=== PATIENT | female | born 1940 | race Caucasian/White ===

== ENCOUNTER 2016-04-15 08:46 | Day surgery (SDC) | payer BC ==
[2016-04-15] VITALS (9 sets, daily range): BP systolic 107–166; BP diastolic 48–65; PULSE 60–82; RESP 16–20; Ht 154.9 cm; Wt 66.5 kg
[~2016-04-15] VITALS: Ht 154.9 cm; Wt 66.5 kg
[~2016-04-15 08:46] MED LIST: LACT10SO53 PO; LACT20SO12 PO; PROP10TA6 PO; URSO300C3 PO
[2016-04-15] MEDS ORDERED: CIPROFLOXACIN 400MG/D5W 200 ML IVPB ONE (09:00)
[2016-04-15] MEDS ORDERED: [UNRECOGNIZED DRUG - OTHER] PO (09:27)
[2016-04-15 09:49] LABS: BASOPHILS % 0.5 % (0.0-2.0); EOSINOPHILS # 0.1 10^3/ul (0.0-0.5); EOSINOPHILS % 2.7 % (0.0-7.0); HEMATOCRIT 34.5 % (37.0-47.0); HEMOGLOBIN 11.8 g/dl (12.0-16.0); LYMPHOCYTES # 1.3 10^3/ul (0.8-2.9); LYMPHOCYTES % 40.2 % (15.0-51.0); MEAN CORPUSCULAR HGB CONC 34.2 g/dl (32.0-37.0); MEAN CORPUSCULAR VOLUME 99.3 fl (82.0-101.0); MEAN PLATELET VOLUME 8.2 fl (7.4-10.4); MONOCYTE # 0.3 10^3/ul (0.3-0.9); MONOCYTES % 10.2 % (0.0-11.0); NEUTROPHIL # 1.5 10^3/ul (1.6-7.5); NEUTROPHILS % 46.4 % (39.0-77.0); PLATELET COUNT 84 10^3/UL (140-440); RED BLOOD COUNT 3.47 10^6/ul (4.20-5.40); RED CELL DISTRIBUTION WIDTH 15.5 % (11.5-14.5); UNCORRECTED WBC 3.2 10^3/ul (4.8-10.8); WHITE BLOOD COUNT 3.2 10^3/ul (4.8-10.8)
[2016-04-15 09:52] LABS: CONDITION 1; LH ANALYZER COMMENTS 1
[2016-04-15 09:54] LABS: INR 1.65; PROTIME 19.6 Sec (12.2-14.2); PT RATIO 1.5
[2016-04-15 10:01] LABS: CALCIUM 8.2 mg/dl (8.4-10.2); CREATININE 0.52 mg/dl (0.44-1.00); POTASSIUM 4.7 mmol/L (3.5-5.1)
--- NOTE | 2016-04-15 10:05 | RADRPT ---
PROCEDURE: Chest Radiograph. CLINICAL INDICATION: Preop. Cirrhosis. TECHNIQUE: Single frontal chest radiograph. COMPARISON: Chest radiograph 10/24/2015 FINDINGS: Heart size is within normal limits. Atherosclerotic calcifications are present. No infiltrate or effusion is seen. The bones are intact. IMPRESSION: 1. No evidence of acute cardiopulmonary disease. 2. Atherosclerotic vascular disease RPTAT: KK .Iglesia Zee MD, MD Date Time Electronically viewed and signed by .Iglesia Zee MD, on 04/15/2016 10:04 .B/
[2016-04-15 10:22] LABS: PARTIAL THROMBOPLASTIN TIME 39.3 Sec (25.0-35.0)
[2016-04-15] MEDS ORDERED: IOHEXOL 300MG/ML 30 ML BTL ONE (11:30)
[2016-04-15] MEDS ORDERED: SUCCINYLCHOLINE CHLORIDE 100 MG/5 ML SYG IV ONE (11:51)
[2016-04-15] MEDS ORDERED: PROPOFOL 20 ML ONE (11:51)
[2016-04-15] MEDS ORDERED: LIDOCAINE 2% (SDV) 5 ML INJ ONE (11:51)
[2016-04-15] MEDS ORDERED: ONDANSETRON 4 MG INJ ONE (11:58)
[2016-04-15] MEDS ORDERED: DEXAMETHASONE 4 MG/ML 1 ML INJ ONE (11:59)
[2016-04-15] MEDS ORDERED: EPHEDrine SULFATE 50 MG/5 ML SYG ONE (12:03)
[2016-04-15] MEDS ORDERED: INDOMETHACIN 50 MG SUPP PR ONE ×2 (12:22→12:30)
[2016-04-15] MEDS ORDERED: PROCHLORPERAZINE 10 MG INJ IV PRN (13:00)
[2016-04-15] MEDS ORDERED: hydrALAzine 20 MG INJ IV PRN (13:00)
[2016-04-15] MEDS ORDERED: LABETALOL HCL 20MG INJ IV PRN (13:00)
[2016-04-15] MEDS ORDERED: ONDANSETRON 4 MG INJ IV PRN (13:00)
[2016-04-15] MEDS ORDERED: HYDROmorphONE (0.2 MG/ML) 10ML SYG IV PRN (13:00)
--- NOTE | 2016-04-15 14:31 | RADRPT ---
PROCEDURE: Intraoperative imaging for ERCP with fluoroscopy. CLINICAL INDICATION: Right upper quadrant pain. Intraoperative. TECHNIQUE: 2 images of the right upper quadrant of the abdomen were obtained in the operating room with an image intensifier. No radiologist was in attendance. 0.1 minutes of fluoroscopy time was used. COMPARISON: 10/26/2015. FINDINGS: Images demonstrate the endoscope in position and contrast injected into the common bile duct. The c ystic duct is also opacified. The common bile duct is normal in diameter. The stent is no longer p resent. IMPRESSION: 1. ERCP as described above. RPTAT: QQ .Kris Velez MD, MD Date Time Electronically viewed and signed by .Kris Velez MD, MD on 04/15/2016 14:31 .R/
--- NOTE | 2016-04-15 14:52 | RADRPT ---
Vent Rate: 60 bpm RR Interval: 0 msec WA Interval: 192 msec QRS Duration: 84 msec QT Interval: 498 msec QTC Interval: 498 msec P-R-T [place]: 42 - 38 - 40 degrees Normal sinus rhyth Normal ECG Electronically Signed By: Bobby Zavala [phone]
--- NOTE | 2016-04-16 06:46 | GILP ---
DATE OF PROCEDURE: PROCEDURE: ERCP, removal of stent stone and also EGD with banding. INDICATION: A 75-year-old female undergoing this procedure for the removal of biliary stent and do cholangiogram, make sure no stone is left behind. She is also undergoing a banding procedure for es ophageal varicose vein. The patient has cirrhosis of liver with mild coagulopathy and thrombocytope ariel. INFORMED CONSENT: The risk of the procedure, related and unrelated complications, anesthetic risks, alternatives discussed. Informed consent was obtained. DESCRIPTION OF PROCEDURE: The patient was brought to the OR room #3, intubated by Dr. Gibson, placed in a prone position, was given Cipro 400 mg IV piggyback. ERCP scope passed with much ease into eso phagus after optimal sedation. Grade III to IV varicose vein identified. Scope was advanced furthe r down into stomach and duodenum. Ampulla appeared much larger than the usual. The stent was ident ified, successfully removed with the help of a snare through the biopsy channel. Bile duct was rhea ctively cannulated. The distal part of the bile duct was not well visualized. Small stone came out . The bile duct was swept multiple times with a 12 mm balloon. The 12 mm balloon would exit withou t any resistance. The drainage was excellent. No sphincterotomy was done because of the coagulopat hy and thrombocytopenia, and since the drainage was excellent and the 12 mm balloon would come out e asily, decided not to deploy a stent. Scope was then removed with excellent patient tolerance. At this point, we passed EGD scope with a 7-shooter attached to the tip of the scope. The columns of v aricose veins were successfully banded, total 5 bands deployed. The patient tolerated the procedure very well. No bleeding was seen. Scope was removed with good patient tolerance. IMPRESSION: 1. Removal of stent. 2. Removal of stone. 3. Excellent drainage established. 4. Fluoroscopy time was 2 seconds. 5. Esophageal banding done. Five bands were successfully deployed. No vein was left behind. PLAN: Follow her as an outpatient. If patient is stable after extubation, she can be started on a regular diet. Dictated By: ERICA AGUILAR/BRITTANY Conf#: [id number] DID#: [id number] CC: ;*EndCC*
== END 2016-04-15 14:55 | disposition home or self-care (01) ==
LOC: SDS 08:46
PROVIDERS: ATTEND Internal Medicine Gastroenterology
DX: K80.80 Other cholelithiasis without obstruction (principal); I10 Essential (primary) hypertension
CPT/HCPCS: 43264; 43275; 71010; 74330; 80048; 85025; 85610; 85730; 93005; J0360; J0744; J1100; J2405; Q9967; Z7512; Z7610; J0330

== ENCOUNTER 2017-11-05 12:20 | Inpatient (IN) | END 2017-11-07 10:59 | disposition home or self-care (01) | DRG 441 ==

== ENCOUNTER 2018-04-01 09:39 | Inpatient (IN) | END 2018-04-04 13:35 | disposition home or self-care (01) | DRG 641 ==

== ENCOUNTER 2018-05-27 17:33 | Inpatient (IN) | payer BC ==
[~2018-05-27] VITALS: Ht 152.4 cm; Wt 74.7 kg
[~2018-05-27 17:33] MED LIST changes: +ATR1OO35 BOTH EYES; +COMBIG5 RIGHT EYE; +FURO40TA4 PO; +HYDR-4011 PO; +IBUP-1561 PO; +LACT10SO5 PO; -LACT10SO53 PO; -LACT20SO12 PO; +PRED5DRO20 RIGHT EYE; +RIFA550T4 PO; -URSO300C3 PO
[2018-05-27] MEDS ORDERED: ONDANSETRON 4 MG INJ IV PRN ×2 (21:00→23:30)
[2018-05-27] MEDS ORDERED: ACETAMINOPHEN 325 MG TAB PO PRN ×2 (21:00→23:30)
[2018-05-27] MEDS ORDERED: hydrALAzine 20 MG INJ IV ONE (21:30)
[2018-05-27 22:12] VITALS: PULSE 62
[2018-05-27 22:20] VITALS: BP 146/65; PULSE 66; RESP 20
[2018-05-27 22:25] VITALS: Ht 152.4 cm; Wt 74.7 kg
[2018-05-27] MEDS ORDERED: SOD CHLORIDE 0.9% 1,000 ML IV SCH (23:16)
[2018-05-27] MEDS ORDERED: NACL 0.9% 3 ML SYG IV SCH (23:30)
[2018-05-27] MEDS ORDERED: DOCUSATE SODIUM 100 MG CAP PO PRN (23:30)
[2018-05-27] MEDS ORDERED: BISACODYL (EC) 5 MG TAB PO PRN (23:30)
[2018-05-28] VITALS (11 sets, daily range): BP systolic 126–172; BP diastolic 64–77; PULSE 52–78; RESP 18–68
--- NOTE | 2018-05-28 00:25 | ERD ---
ER Documentation Chief Complaint Chief Complaint ALTERED LOC ; DIZZINESS ; GENRALIZED WEAKNESS HPI 77-year-old female with a history of cirrhosis brought in by her daughter for increased confusion that started today. Normally she is not confused at baseline. However when her ammonia levels go up, her daughter states that she becomes confused. She has not been ill lately. She has had no complaints of headache, chest pain, shortness of breath, abdominal pain, diarrhea, vomiting, fever or chills. Patient currently is able to answer some questions and denies any symptoms besides being confused. ROS All systems reviewed and are negative except as per history of present illness. Medications Home Meds Active Scripts Ibuprofen* (Motrin*) 400 Mg Tab, 400 MG PO Q8, #30 TAB Prov:JACLYN LEA DO 05/23/18 Reported Medications Brimonidine/Timolol* (Combigan*) 5 Ml Drops, 1 DROP RIGHT EYE BID, BOTTLE 04/03/18 Prednisolone Acetate* (Pred Forte*) 5 Ml Susp, 1 DROP RIGHT EYE QID, EA 04/03/18 Atropine Sulfate* (Atropine Sulfate*) 3.5 Gm Oint, 1 APPLIC BOTH EYES DAILY, #1 TUB 04/01/18 Rifaximin* (Xifaxan*) 550 Mg Tablet, 550 MG PO BID, TAB 04/01/18 Lactulose* (Lactulose*) 10 Gm/15 Ml Solution, 30 GM PO Q6 PRN for CONSTIPATION, ML 04/01/18 Propranolol Hcl* (Propranolol Hcl*) 10 Mg Tablet, 10 MG PO BID, TAB 04/01/18 Discontinued Reported Medications Furosemide* (Furosemide*) 40 Mg Tablet, 40 MG PO DAILY, TAB 04/01/18 Discontinued Scripts Hydrocodone/Acetaminophen ([place] 5-325 Tablet) 1 Each Tablet, 1 TAB PO Q6H PRN for PAIN, #14 TAB Prov:JACLYN LEA DO 05/23/18 Allergies Allergies: Coded Allergies: Penicillins (Verified Allergy, Severe, TONGUE TURNED BLACK, SORETHROAT, 05/27/18) PMhx/Soc History of Surgery: No Anesthesia Reaction: No Hx Neurological Disorder: Yes (confusion) Hx Respiratory Disorders: No Hx Cardiac Disorders: No Hx Psychiatric Problems: Yes (depression) Hx Alcohol Use: No Hx Substance Use: No Hx Tobacco Use: No Smoking Status: Never smoker FmHx Unable to obtain Physical Exam Vitals Vital Signs Date Temp Pulse Resp B/P (MAP) Pulse Ox O2 O2 Flow FiO2 Time Delivery Rate 05/27/18 98.1 61 20 213/79 100 Room Air 20:30 (123) 05/27/18 98.1 59 20 229/86 100 Room Air 18:30 (133) 05/27/18 98.1 58 19 228/93 100 17:45 (138) Physical Exam Const: No acute distress. Nontoxic. Appears fatigued Head: Atraumatic Eyes: Normal Conjunctiva, PERRLA, EOMI ENT: Normal External Ears, Nose and Mouth. Neck: Full range of motion. No meningismus. Resp: Clear to auscultation bilaterally Cardio: Regular rate and rhythm, no murmurs Abd: Soft, non tender, non distended. Normal bowel sounds Skin: No petechiae or rashes Back: No midline or flank tenderness Ext: No cyanosis, or edema Neur: Awake and alert, oriented to self but not oriented to place, date, year. No facial asymmetry. No pronator drift. Strength and sensations intact in all 4 extremities but has some difficulty following commands. Psych: Normal Mood and Affect Result Diagram: 05/27/18 1834 05/27/18 183 Results 24 hrs Laboratory Tests Test 05/27/18 18:34 05/27/18 19:31 White Blood Count 14.6 10^3/ul Red Blood Count 3.68 10^6/ul Hemoglobin 12.4 g/dl Hematocrit 36.9 % Mean Corpuscular Volume 100.3 fl Mean Corpuscular Hemoglobin 33.7 pg Mean Corpuscular Hemoglobin Concent 33.6 g/dl Red Cell Distribution Width 14.8 % Platelet Count 118 10^3/UL Mean Platelet Volume 10.9 fl Immature Granulocytes % 1.100 % Neutrophils % 82.1 % Lymphocytes % 9.1 % Monocytes % 6.9 % Eosinophils % 0.5 % Basophils % 0.3 % Nucleated Red Blood Cells % 0.0 /100WBC Immature Granulocytes # 0.160 10^3/ul Neutrophils # 12.0 10^3/ul Lymphocytes # 1.3 10^3/ul Monocytes # 1.0 10^3/ul Eosinophils # 0.1 10^3/ul Basophils # 0.1 10^3/ul Nucleated Red Blood Cells # 0.0 10^3/ul Sodium Level 128 mmol/L Potassium Level 5.2 mmol/L Chloride Level 101 mmol/L Carbon Dioxide Level 20 mmol/L Anion Gap 7 Blood Urea Nitrogen 23 mg/dl Creatinine 1.03 mg/dl Est Glomerular Filtrat Rate mL/min mL/min Glucose Level 168 mg/dl Calcium Level 8.0 mg/dl Total Bilirubin 2.2 mg/dl Direct Bilirubin 0.00 mg/dl Indirect Bilirubin 2.2 mg/dl Aspartate Amino Transf (AST/SGOT) 89 IU/L Alanine Aminotransferase (ALT/SGPT) 79 IU/L Alkaline Phosphatase 174 IU/L Ammonia 63 umol/l Troponin I 0.020 ng/ml Total Protein 6.8 g/dl Albumin 2.3 g/dl Globulin 4.50 g/dl Albumin/Globulin Ratio 0.51 Urine Color YELLOW Urine Clarity SLIGHTLY CLOUDY Urine pH 6.0 Urine Specific [place] 1.014 Urine Ketones NEGATIVE mg/dL Urine Nitrite NEGATIVE mg/dL Urine Bilirubin NEGATIVE mg/dL Urine Urobilinogen NEGATIVE mg/dL Urine Leukocyte Esterase NEGATIVE Lisette/ul Urine Microscopic RBC 21 /HPF Urine Microscopic WBC 6 /HPF Urine Squamous Epithelial Cells MODERATE /HPF Urine Bacteria FEW /HPF Urine Hemoglobin 3+ mg/dL Urine Glucose NEGATIVE mg/dL Urine Total Protein 3+ mg/dl Urine Opiates Screen NEGATIVE Urine Barbiturates NEGATIVE Urine Amphetamines Screen NEGATIVE Urine Benzodiazepines Screen NEGATIVE Urine Cocaine Screen NEGATIVE Urine Cannabinoids NEGATIVE Procedures/MDM EMERGENT LABS AND DIAGNOSTIC STUDIES: Lab Results above were reviewed and interpreted by me. CBC: No anemia. Thrombocytopenia. Leukocytosis of unclear etiology. CMP: Mild hyponatremia with mild hyperkalemia. Elevated BUN and creatinine, co nsistent with AK I. Transaminitis with elevated bilirubin, consistent with liver disease. Troponin within normal limits, not indicative of cardiac ischemia UA: Microscopic hematuria noted. No evidence of infection Urine drug screen negative Ammonia elevated 12-lead EKG was interpreted by Randee Hood MD: Normal Sinus Rhythm with ventricular rate of 59 beats per minute Normal axis Normal intervals Abnormal R wave progression No acute ST or T wave changes suggestive of acute ischemia or STEMI. Radiology Results as interpreted by Radiology below were reviewed by Yelitza Hood MD: Chest x-ray shows no acute abnormalities CT brain pending Initial Nursing notes reviewed. Previous Medical Records requested via the Electronic Health Record. EMERGENCY DEPARTMENT COURSE / MEDICAL DECISION MAKING: patient is presenting with altered mental status of unclear etiology. There is no evidence of infection on workup.She is afebrile and his vitals only notable for hypertension.Labs showed evidence of acute renal insufficiency with some electrolyte abnormalities. She does have leukocytosis but no source of infection at this time. Her ammonia level was elevated, which may be the reason why she is confused. Patient is currently not stable for discharge and will require admission for observation and further workup and management. Critical Care Time: 40 minutes Treatments/Evaluations: Close monitoring and treatment of unstable vital signs, cardiorespiratory, and neurologic status, while maintaining tight balance of fluid, respiratory, and cardiac interventions. This time includes discussing the case with the patient and the patients family. This time does not include all procedures stated elsewhere in this record. This time also includes reviewing old records, labs and radiological studies. This time includes examining and re- examining the patient. Additionally, this time also includes arranging care with admitting and consulting physicians. Accepting Care Team: Current data and ongoing care discussed. Time: Time of admission Primary Provider: Dr. Cortez Outstanding Data: CT brain Departure Diagnosis: Primary Impression: Altered mental status Altered mental status type: disorientation Qualified Codes: R41.0 - Disorientation, unspecified Additional Impressions: Hyperammonemia Hyponatremia Acute renal insufficiency Condition: Serious OZZY HOOD MD May 28, 2018 00:25
[2018-05-28] MEDS: LACTULOSE 30ML CUP PO SCH ×6 (00:47→20:48)
[2018-05-28] MEDS: PANTOPRAZOLE 40 MG INJ IV SCH (05:58)
[2018-05-28] MEDS ORDERED: LEVOFLOXACIN 500 MG TAB PO SCH (06:00)
[2018-05-28] MEDS: RIFAXIMIN 550 MG TAB PO SCH ×2 (09:00→20:48)
[2018-05-28] MEDS: PROPRANOLOL 10 MG TAB PO SCH ×2 (09:03→20:48)
[2018-05-28] MEDS: PREDNISOLONE ACET 1% 5 ML OPH RIGHT EYE SCH ×4 (09:05→20:49)
[2018-05-28] MEDS: BRIMONIDINE 0.2%-TIMOLOL 0.5% 5ML OPH RIGHT EYE SCH ×2 (09:05→20:49)
[2018-05-28] MEDS ORDERED: SODIUM POLYSTYRENE 15 GM KIT (POWDER + SORBITOL) PO ONE (09:30)
--- NOTE | 2018-05-28 12:43 | HP ---
YOKO VEGA 05/28/18 1243: Date/Time of Note Date/Time of Note DATE: 05/28/18 TIME: 12:41 Assessment/Plan VTE Prophylaxis Risk score (from [facility] [place])>0 risk: 6 SCD applied (from [facility] [place]): Yes Pharmacological prophylaxis: NA/contraindicated Pharm contraindication: thrombocytopenia Lines/Catheters IV Catheter Type (from [facility] Peripheral IV Assessment/Plan Hospital Course 1. SIRS. UA is negative, chest xray is negative. 2. TRISTON, creatinine in 03/2018 was normal, now elevated 1.15, hyperkalemia 3. Hyponatremia. 4. Metabolic encephalopathy with AMS. Elevated ammonia. 5. Abnormal liver function test. 6. Liver cirrhosis with thrombocytopenia. 7. Obesity 8. History of hepatic encephalopathy with elevated ammonia. Assessment/Plan -DVT prophylaxis SCD pt has thrombocytopenia -Gi prophylaxis Protonix -c/w iV fluids -telemetry service -c/w lactulose q4, rifaximin. - GI consultation will be requested. -recheck Potassium. -Kayaxalete was given today Result Diagram: 05/28/18 0640 05/28/18 0640 Results 24hrs Laboratory Tests Test 05/27/18 18:34 05/27/18 19:31 05/28/18 06:40 White Blood Count 14.6 #H 12.7 H Red Blood Count 3.68 #L 3.59 L Hemoglobin 12.4 # 11.9 L Hematocrit 36.9 #L 35.5 L Mean Corpuscular Volume 100.3 98.9 Mean Corpuscular Hemoglobin 33.7 H 33.1 H Mean Corpuscular 33.6 33.5 Hemoglobin Concent Red Cell Distribution Width 14.8 H 14.9 H Platelet Count 118 #L 111 L Mean Platelet Volume 10.9 H 11.3 H Immature Granulocytes % 1.100 H 0.900 H Neutrophils % 82.1 H 79.7 H Lymphocytes % 9.1 L 10.4 L Monocytes % 6.9 8.2 Eosinophils % 0.5 0.6 Basophils % 0.3 0.2 Nucleated Red Blood Cells % 0.0 0.2 H Immature Granulocytes # 0.160 H 0.110 H Neutrophils # 12.0 H 10.1 H Lymphocytes # 1.3 1.3 Monocytes # 1.0 H 1.0 H Eosinophils # 0.1 0.1 Basophils # 0.1 0.0 Nucleated Red Blood Cells # 0.0 0.0 Sodium Level 128 L 129 L Potassium Level 5.2 H 5.5 H Chloride Level 101 103 Carbon Dioxide Level 20 L 21 Anion Gap 7 5 Blood Urea Nitrogen 23 H 27 H Creatinine 1.03 H 1.15 H Est Glomerular Filtrat Rate mL/min Glucose Level 168 191 Calcium Level 8.0 L 8.1 L Total Bilirubin 2.2 H 2.2 H Direct Bilirubin 0.00 0.00 Indirect Bilirubin 2.2 H 2.2 H Aspartate Amino 89 H 78 H Transf (AST/SGOT) Alanine 79 H 77 H Aminotransferase (ALT/SGPT) Alkaline Phosphatase 174 H 150 H Ammonia 63 H 74 H Troponin I 0.020 Total Protein 6.8 5.6 #L Albumin 2.3 L 2.0 L Globulin 4.50 H 3.60 H Albumin/Globulin Ratio 0.51 0.55 Urine Color YELLOW Urine Clarity SLIGHTLY CLOUDY A Urine pH 6.0 Urine Specific [place] 1.014 Urine Ketones NEGATIVE Urine Nitrite NEGATIVE Urine Bilirubin NEGATIVE Urine Urobilinogen NEGATIVE Urine Leukocyte Esterase NEGATIVE Urine Microscopic RBC 21 H Urine Microscopic WBC 6 H Urine Squamous MODERATE Epithelial Cells Urine Bacteria FEW A Urine Hemoglobin 3+ H Urine Glucose NEGATIVE Urine Total Protein 3+ H Urine Opiates Screen NEGATIVE Urine Barbiturates NEGATIVE Urine Amphetamines Screen NEGATIVE Urine Benzodiazepines Screen NEGATIVE Urine Cocaine Screen NEGATIVE Urine Cannabinoids NEGATIVE Hemoglobin A1c 5.4 HPI/ROS Admit Date/Time Admit Date/Time May 27, 2018 at 20:37 Hx of Present Illness This is a 77-year-old woman with a past medical history of cirrhosis, followed by Dr Chahal as an outpatient, history of biliary stent, angiogram, history of esophageal varices status post banding by Dr. Hammer who presented to the emergency department after being confused at home. Most information is given by pt son, who is on bedside, per ER record pt had increased confusion day prior admission. Normally she is not confused at baseline. However when her ammonia levels go up, her daughter states that she becomes confused. Similar situation happened February 2018 and pt was hospitalized [facility]. Daughter reported that patient has not been ill lately. She has had no complaints of headache, chest pain, shortness of breath, abdominal pain, diarrhea, vomiting, fever or chills. ROS Constitutional: no complaints, improved PMH/Family/Social Past Medical History Medical History: other (liver cirrhosis) Medications Current Medications Brimonidine/ Timolol (Combigan Oph) 1 drop BID RIGHT EYE Last administered on 05/28/18at 09:05; Admin Dose 1 DROP; Start 05/28/18 at 09:00 Prednisolone Acetate (Pred-Forte 1%) 1 drop QID RIGHT EYE Last administered on 05/28/18at 09:05; Admin Dose 1 DROP; Start 05/28/18 at 09:00 Propranolol HCl (Inderal) 10 mg BID PO Last administered on 05/28/18at 09:03; Admin Dose 10 MG; Start 05/28/18 at 09:00 Rifaximin (Xifaxan) 550 mg BID PO ; Start 05/28/18 at 09:00 Sodium Chloride 1,000 ml @ 30 mls/hr Q24H IV Last administered on 05/28/18at 00:47; Admin Dose 30 MLS/HR; Start 05/27/18 at 23:16 IV Flush (NS 3 ml) 3 ml PER PROTOCOL IV ; Start 05/27/18 at 23:30 Ondansetron HCl (Zofran Inj) 4 mg Q6H PRN IV NAUSEA/VOMITING; Start 05/27/18 at 23:30 Acetaminophen (Tylenol Tab) 650 mg Q6H PRN PO .PAIN 1-3 OR TEMP; Start 05/27/18 at 23:30 Docusate Sodium (Colace) 100 mg Q12H PRN PO .CONSTIPATION; Start 05/27/18 at 23:30 Bisacodyl (Dulcolax) 5 mg DAILY PRN PO .CONSTIPATION; Start 05/27/18 at 23:30 Pantoprazole (Protonix Iv) 40 mg DAILY@06 IV Last administered on 05/28/18at 05:58; Admin Dose 40 MG; Start 05/28/18 at 06:00 Lactulose (Enulose) 20 gm Q4 PO Last administered on 05/28/18at 09:02; Admin Dose 20 GM; Start 05/28/18 at 01:00 Levofloxacin (Levaquin) 250 mg DAILY@06 PO ; Start 05/29/18 at 06:00 Coded Allergies: Penicillins (Verified Allergy, Severe, TONGUE TURNED BLACK, SORETHROAT, 05/27/18) Past Surgical History Past Surgical Hx: no surgical history (stent), angioplasty, other Family History Significant Family History: no pertinent family hx Social History Alcohol Use: none Smoking Status: Never smoker Drug Use: none Exam/Review of Systems Vital Signs Vitals Vital Signs Date Temp Pulse Resp B/P (MAP) Pulse Ox O2 O2 Flow FiO2 Time Delivery Rate 05/28/18 52 12:14 05/28/18 98.2 18 150/68 98 11:46 (95) 05/28/18 Room Air 00:30 Exam Constitutional: alert, oriented Respiratory: clear to auscultation Cardiovascular: regular rate and rhythm Gastrointestinal: soft GABRIELA ESPINO MD 05/28/18 1728: Assessment/Plan Assessment/Plan Assessment/Plan seen and examined with [employer] Hepatic encephalopathy> lactulose/rifaxzimin hypobnatremia with volume overload> fludi restriction/iv lasix hyperkalemia> kayexlate Result Diagram: 05/28/18 0640 05/28/18 0640 PMH/Family/Social Past Medical History Coded Allergies: Penicillins (Verified Allergy, Severe, TONGUE TURNED BLACK, SORETHROAT, 05/27/18) YOKO VEGA May 28, 2018 12:43 GABRIELA ESPINO MD May 28, 2018 17:28
[2018-05-28] MEDS ORDERED: FUROSEMIDE 40 MG INJ IV ONE (17:30)
[2018-05-29] VITALS (12 sets, daily range): BP systolic 142–190; BP diastolic 65–79; PULSE 57–69; RESP 16–20
[2018-05-29] MEDS: LACTULOSE 30ML CUP PO SCH ×6 (01:34→20:15)
[2018-05-29] MEDS: LEVOFLOXACIN 250 MG TAB PO SCH (05:44)
[2018-05-29] MEDS: PANTOPRAZOLE 40 MG INJ IV SCH (05:44)
[2018-05-29] MEDS: BRIMONIDINE 0.2%-TIMOLOL 0.5% 5ML OPH RIGHT EYE SCH ×2 (08:54→20:15)
[2018-05-29] MEDS: PREDNISOLONE ACET 1% 5 ML OPH RIGHT EYE SCH ×4 (08:54→20:15)
[2018-05-29] MEDS: FUROSEMIDE 40 MG INJ IV SCH (08:54)
[2018-05-29] MEDS: PROPRANOLOL 10 MG TAB PO SCH ×2 (08:54→20:16)
[2018-05-29] MEDS: RIFAXIMIN 550 MG TAB PO SCH ×2 (08:54→20:16)
--- NOTE | 2018-05-29 13:11 | PN ---
Date/Time of Note Date/Time of Note DATE: 05/29/18 TIME: 12:53 Assessment/Plan VTE Prophylaxis Risk score (from [facility])>0 risk: 6 SCD applied (from [facility]): Yes Pharmacological prophylaxis: NA/contraindicated Pharm contraindication: thrombocytopenia Lines/Catheters IV [facility] Saline Lock Assessment/Plan Hospital Course 1. SIRS. UA is negative, chest xray is negative. 2. TRISTON, creatinine in 03/2018 was normal, now elevated 1.15, hyperkalemia. Creatinine is trending up 3. Hyponatremia, better. 4. Metabolic encephalopathy with AMS. Elevated ammonia. Resolved 5. Abnormal liver function test. 6. Liver cirrhosis with thrombocytopenia. 7. Obesity 8. History of hepatic encephalopathy with elevated ammonia. 9. Anemia Assessment/Plan -decrease lasix -DVT prophylaxis SCD pt has thrombocytopenia -Gi prophylaxis Protonix -telemetry service -c/w lactulose q4, rifaximin. - GI consultation will be requested. -ambulating Result Diagram: 05/29/18 0605/29/18 0605 Results 24hrs Laboratory Tests Test 05/28/18 19:50 05/29/18 06:05 Urine Osmolality 270 Urine Random Sodium 90 White Blood Count 9.0 # Red Blood Count 3.10 L Hemoglobin 10.5 L Hematocrit 30.7 L Mean Corpuscular Volume 99.0 Mean Corpuscular Hemoglobin 33.9 H Mean Corpuscular Hemoglobin Concent 34.2 Red Cell Distribution Width 15.0 H Platelet Count 91 L Mean Platelet Volume 11.5 H Immature Granulocytes % 0.800 H Neutrophils % 80.4 H Lymphocytes % 10.4 L Monocytes % 8.1 Eosinophils % 0.2 Basophils % 0.1 Nucleated Red Blood Cells % 0.0 Immature Granulocytes # 0.070 H Neutrophils # 7.3 Lymphocytes # 0.9 Monocytes # 0.7 Eosinophils # 0.0 Basophils # 0.0 Nucleated Red Blood Cells # 0.0 Sodium Level 132 L Potassium Level 4.5 Chloride Level 107 Carbon Dioxide Level 20 L Anion Gap 5 Blood Urea Nitrogen 32 H Creatinine 1.20 H Est Glomerular Filtrat Rate mL/min Glucose Level 228 H Calcium Level 7.9 L Subjective 24 Hr Interval Summary Musculoskeletal: swelling (lower extremities) Exam/Review of Systems Exam Vitals Vital Signs Date Temp Pulse Resp B/P (MAP) Pulse Ox O2 O2 Flow FiO2 Time Delivery Rate 2/16/19 98.9 62 16 142/65 100 11:36 (90) 05/28/18 Room Air 00:30 Intake and Output 05/28/18 05/28/18 05/29/18 1515:00 23:00 07:00 IntakeIntake Total 850 ml 350 ml BalanceBalance 850 ml 350 ml Constitutional: alert, oriented Respiratory: clear to auscultation Cardiovascular: regular rate and rhythm Gastrointestinal: soft Results Results 24hrs Laboratory Tests Test 05/28/18 19:50 05/29/18 06:05 Urine Osmolality 270 Urine Random Sodium 90 White Blood Count 9.0 # Red Blood Count 3.10 L Hemoglobin 10.5 L Hematocrit 30.7 L Mean Corpuscular Volume 99.0 Mean Corpuscular Hemoglobin 33.9 H Mean Corpuscular Hemoglobin Concent 34.2 Red Cell Distribution Width 15.0 H Platelet Count 91 L Mean Platelet Volume 11.5 H Immature Granulocytes % 0.800 H Neutrophils % 80.4 H Lymphocytes % 10.4 L Monocytes % 8.1 Eosinophils % 0.2 Basophils % 0.1 Nucleated Red Blood Cells % 0.0 Immature Granulocytes # 0.070 H Neutrophils # 7.3 Lymphocytes # 0.9 Monocytes # 0.7 Eosinophils # 0.0 Basophils # 0.0 Nucleated Red Blood Cells # 0.0 Sodium Level 132 L Potassium Level 4.5 Chloride Level 107 Carbon Dioxide Level 20 L Anion Gap 5 Blood Urea Nitrogen 32 H Creatinine 1.20 H Est Glomerular Filtrat Rate mL/min Glucose Level 228 H Calcium Level 7.9 L Medications Medication Current Medications Brimonidine/ Timolol (Combigan Oph) 1 drop BID RIGHT EYE Last administered on 05/29/18 08:54; Admin Dose 1 DROP; Start 05/28/18 at 09:00 Prednisolone Acetate (Pred-Forte 1%) 1 drop QID RIGHT EYE Last administered on 05/29/18 12:33; Admin Dose 1 DROP; Start 05/28/18 at 09:00 Propranolol HCl (Inderal) 10 mg BID PO Last administered on 05/29/18 08:54; Admin Dose 10 MG; Start 05/28/18 at 09:00 Rifaximin (Xifaxan) 550 mg BID PO Last administered on 05/28/18at 20:48; Admin Dose 550 MG; Start 05/28/18 at 09:00 IV Flush (NS 3 ml) 3 ml PER PROTOCOL IV ; Start 05/27/18 at 23:30 Ondansetron HCl (Zofran Inj) 4 mg Q6H PRN IV NAUSEA/VOMITING; Start 05/27/18 at 23:30 Acetaminophen (Tylenol Tab) 650 mg Q6H PRN PO .PAIN 1-3 OR TEMP; Start 05/27/18 at 23:30 Docusate Sodium (Colace) 100 mg Q12H PRN PO .CONSTIPATION; Start 05/27/18 at 23:30 Bisacodyl (Dulcolax) 5 mg DAILY PRN PO .CONSTIPATION; Start 05/27/18 at 23:30 Pantoprazole (Protonix Iv) 40 mg DAILY@06 IV Last administered on 05/29/18at 05:44; Admin Dose 40 MG; Start 05/28/18 at 06:00 Lactulose (Enulose) 20 gm Q4 PO Last administered on 05/29/18at 12:33; Admin Dose 20 GM; Start 05/28/18 at 01:00 Levofloxacin (Levaquin) 250 mg DAILY@06 PO Last administered on 05/29/18at 05:44; Admin Dose 250 MG; Start 05/29/18 at 06:00 Furosemide (Lasix) 40 mg DAILY IV Last administered on 05/29/18at 08:54; Admin Dose 40 MG; Start 05/29/18 at 09:00 YOKO VEGA May 29, 2018 13:03
[2018-05-30] VITALS (13 sets, daily range): BP systolic 119–187; BP diastolic 57–82; PULSE 52–71; RESP 16–18
[2018-05-30] MEDS: LACTULOSE 30ML CUP PO SCH ×6 (01:00→21:08)
[2018-05-30] MEDS: PANTOPRAZOLE (EC) 40 MG TAB PO SCH (05:46)
[2018-05-30] MEDS: LEVOFLOXACIN 250 MG TAB PO SCH (05:46)
[2018-05-30] MEDS: SPIRONOLACTONE 50 MG TAB PO SCH (05:46)
[2018-05-30] MEDS: FUROSEMIDE 40 MG INJ IV SCH ×2 (08:20→18:35)
[2018-05-30] MEDS: RIFAXIMIN 550 MG TAB PO SCH ×2 (08:20→21:08)
[2018-05-30] MEDS: PROPRANOLOL 10 MG TAB PO SCH ×2 (08:20→21:08)
[2018-05-30] MEDS: hydrALAzine 20 MG INJ IV PRN (08:21)
[2018-05-30] MEDS: BRIMONIDINE 0.2%-TIMOLOL 0.5% 5ML OPH RIGHT EYE SCH ×2 (08:21→21:08)
[2018-05-30] MEDS: PREDNISOLONE ACET 1% 5 ML OPH RIGHT EYE SCH ×4 (08:21→21:09)
--- NOTE | 2018-05-30 17:59 | PN ---
Date/Time of Note Date/Time of Note DATE: 05/30/18 TIME: 17:58 Assessment/Plan VTE Prophylaxis Risk score (from [facility] [place])>0 risk: 5 SCD applied (from [facility] [place]): Yes SCD contraindicated: other Pharmacological prophylaxis: other Lines/Catheters IV Catheter Type (from [facility] Saline Lock Assessment/Plan Hospital Course 1. HEPATIC ENCEPHALOPATHY 2. TRISTON, 3. Hyponatremia, better. 4. Metabolic encephalopathy with AMS. 5. Abnormal liver function test. 6. Liver cirrhosis with thrombocytopenia. 7. Obesity 8. History of hepatic encephalopathy with elevated ammonia. 9. Anemia 10 LEG EDEMA PLAN DIURETIC Result Diagram: 05/30/18 0552 05/30/18 0552 Results 24hrs Laboratory Tests Test 05/30/18 05:52 White Blood Count 8.7 Red Blood Count 3.18 L Hemoglobin 10.7 L Hematocrit 31.7 L Mean Corpuscular Volume 99.7 Mean Corpuscular Hemoglobin 33.6 H Mean Corpuscular Hemoglobin Concent 33.8 Red Cell Distribution Width 14.9 H Platelet Count 90 L Mean Platelet Volume 11.5 H Immature Granulocytes % 0.500 H Neutrophils % 67.1 Lymphocytes % 18.5 Monocytes % 11.7 H Eosinophils % 2.1 Basophils % 0.1 Nucleated Red Blood Cells % 0.0 Immature Granulocytes # 0.040 H Neutrophils # 5.8 Lymphocytes # 1.6 Monocytes # 1.0 H Eosinophils # 0.2 Basophils # 0.0 Nucleated Red Blood Cells # 0.0 Sodium Level 136 Potassium Level 4.9 Chloride Level 103 Carbon Dioxide Level 26 Anion Gap 7 Blood Urea Nitrogen 32 H Creatinine 1.17 H Est Glomerular Filtrat Rate mL/min Glucose Level 161 Calcium Level 8.1 L Ammonia 59 H Subjective 24 Hr Interval Summary Subjective hx not possible: other (LEG EDEMA+) Cardiovascular: no complaints Gastrointestinal: no complaints Exam/Review of Systems Exam Vitals Vital Signs Date Temp Pulse Resp B/P (MAP) Pulse Ox O2 O2 Flow FiO2 Time Delivery Rate 05/30/18 61 16:00 05/30/18 97.7 18 119/57 99 Room Air 15:43 (77) Intake and Output 05/29/18 05/29/18 05/30/18 1515:00 23:00 07:00 IntakeIntake Total 900 ml 500 ml BalanceBalance 900 ml 500 ml Neck: supple Respiratory: clear to auscultation Cardiovascular: regular rate and rhythm Gastrointestinal: soft Musculoskeletal: nl extremities to inspection Extremities: normal pulses Results Results 24hrs Laboratory Tests Test 05/30/18 05:52 White Blood Count 8.7 Red Blood Count 3.18 L Hemoglobin 10.7 L Hematocrit 31.7 L Mean Corpuscular Volume 99.7 Mean Corpuscular Hemoglobin 33.6 H Mean Corpuscular Hemoglobin Concent 33.8 Red Cell Distribution Width 14.9 H Platelet Count 90 L Mean Platelet Volume 11.5 H Immature Granulocytes % 0.500 H Neutrophils % 67.1 Lymphocytes % 18.5 Monocytes % 11.7 H Eosinophils % 2.1 Basophils % 0.1 Nucleated Red Blood Cells % 0.0 Immature Granulocytes # 0.040 H Neutrophils # 5.8 Lymphocytes # 1.6 Monocytes # 1.0 H Eosinophils # 0.2 Basophils # 0.0 Nucleated Red Blood Cells # 0.0 Sodium Level 136 Potassium Level 4.9 Chloride Level 103 Carbon Dioxide Level 26 Anion Gap 7 Blood Urea Nitrogen 32 H Creatinine 1.17 H Est Glomerular Filtrat Rate mL/min Glucose Level 161 Calcium Level 8.1 L Ammonia 59 H Medications Medication Current Medications Brimonidine/ Timolol (Combigan Oph) 1 drop BID RIGHT EYE Last administered on 05/30/18at 08:21; Admin Dose 1 DROP; Start 05/28/18 at 09:00 Prednisolone Acetate (Pred-Forte 1%) 1 drop QID RIGHT EYE Last administered on 05/30/18at 17:41; Admin Dose 1 DROP; Start 05/28/18 at 09:00 Propranolol HCl (Inderal) 10 mg BID PO Last administered on 05/30/18at 08:20; Admin Dose 10 MG; Start 05/28/18 at 09:00 Rifaximin (Xifaxan) 550 mg BID PO Last administered on 05/30/18at 08:20; Admin Dose 550 MG; Start 05/28/18 at 09:00 IV Flush (NS 3 ml) 3 ml PER PROTOCOL IV ; Start 05/27/18 at 23:30 Ondansetron HCl (Zofran Inj) 4 mg Q6H PRN IV NAUSEA/VOMITING; Start 05/27/18 at 23:30 Acetaminophen (Tylenol Tab) 650 mg Q6H PRN PO .PAIN 1-3 OR TEMP; Start 05/27/18 at 23:30 Docusate Sodium (Colace) 100 mg Q12H PRN PO .CONSTIPATION; Start 05/27/18 at 23:30 Bisacodyl (Dulcolax) 5 mg DAILY PRN PO .CONSTIPATION; Start 05/27/18 at 23:30 Lactulose (Enulose) 20 gm Q4 PO Last administered on 05/30/18at 17:41; Admin Dose 20 GM; Start 05/28/18 at 01:00 Levofloxacin (Levaquin) 250 mg DAILY@06 PO Last administered on 05/30/18at 05:46; Admin Dose 250 MG; Start 05/29/18 at 06:00 Furosemide (Lasix) 40 mg DAILY IV Last administered on 05/30/18at 08:20; Admin Dose 40 MG; Start 05/29/18 at 09:00 Pantoprazole (Protonix Tab) 40 mg DAILY@06 PO Last administered on 05/30/18at 05:46; Admin Dose 40 MG; Start 05/30/18 at 06:00 Spironolactone (Aldactone) 50 mg DAILY@0600 PO Last administered on 05/30/18at 05:46; Admin Dose 50 MG; Start 05/30/18 at 06:00 Hydralazine HCl (Apresoline) 10 mg Q6H PRN IV ELEVATED BLOOD PRESSURE Last administered on 05/30/18at 08:21; Admin Dose 10 MG; Start 05/30/18 at 07:30 PRASANTH PAREKH MD May 30, 2018 17:59
[2018-05-31] VITALS (10 sets, daily range): BP systolic 107–148; BP diastolic 53–65; PULSE 56–69; RESP 17–18
[2018-05-31] MEDS: hydrALAzine 20 MG INJ IV PRN (00:42)
[2018-05-31] MEDS: LACTULOSE 30ML CUP PO SCH ×6 (00:42→20:44)
[2018-05-31] MEDS: LEVOFLOXACIN 250 MG TAB PO SCH (05:51)
[2018-05-31] MEDS: PANTOPRAZOLE (EC) 40 MG TAB PO SCH (05:51)
[2018-05-31] MEDS: FUROSEMIDE 40 MG INJ IV SCH (05:52)
[2018-05-31] MEDS: SPIRONOLACTONE 50 MG TAB PO SCH (05:55)
[2018-05-31] MEDS: BRIMONIDINE 0.2%-TIMOLOL 0.5% 5ML OPH RIGHT EYE SCH ×2 (08:30→20:46)
[2018-05-31] MEDS: RIFAXIMIN 550 MG TAB PO SCH ×2 (08:30→20:45)
[2018-05-31] MEDS: PROPRANOLOL 10 MG TAB PO SCH ×2 (08:30→20:45)
[2018-05-31] MEDS: PREDNISOLONE ACET 1% 5 ML OPH RIGHT EYE SCH ×4 (08:30→20:46)
--- NOTE | 2018-05-31 12:10 | PN ---
Date/Time of Note Date/Time of Note DATE: 05/31/18 TIME: 12:04 Assessment/Plan VTE Prophylaxis Risk score (from Ns)>0 risk: 6 SCD applied (from Ns): Yes Pharmacological prophylaxis: NA/contraindicated Pharm contraindication: low risk/ambulating Lines/Catheters IV Catheter Type (from [facility]): Saline Lock Assessment/Plan Assessment/Plan 77 y/o with 1. SIRS. UA is negative, chest xray is negative. 2. TRISTON, creatinine in 03/2018 was normal, now elevated 1.15, hyperkalemia. Getting elevated rising up likely questionable secondary to diuresis 3. Hyponatremia, better. 4. Metabolic encephalopathy with AMS. Elevated ammonia. Monitor trending up however patient is awake alert oriented 5. Abnormal liver function test. 6. Liver cirrhosis with thrombocytopenia. 7. Obesity 8. History of hepatic encephalopathy with elevated ammonia. 9. Anemia 10 hyper kalemia resolved Assessment/Plan -We will get abdominal ultrasound -Decrease the Lasix due to a TRISTON, on aldactone -Strict I's and O's -avoid Nephrotoxic agents -Monitor ammonia levels -Continue with the lactulose / rifaximin -DC Levaquin -Ambulate Result Diagram: 05/30/18 0552 05/31/18 0633 Results 24hrs Laboratory Tests Test 05/31/18 06:33 Sodium Level 136 Potassium Level 4.2 Chloride Level 105 Carbon Dioxide Level 22 Anion Gap 9 Blood Urea Nitrogen 35 H Creatinine 1.67 H Est Glomerular Filtrat Rate mL/min Glucose Level 174 Calcium Level 8.3 L Total Bilirubin 1.9 H Direct Bilirubin 0.00 Indirect Bilirubin 1.9 H Aspartate Amino Transf (AST/SGOT) 99 H Alanine Aminotransferase (ALT/SGPT) 97 H Alkaline Phosphatase 151 H Ammonia 175 #H Total Protein 5.7 L Albumin 1.9 L Globulin 3.80 H Albumin/Globulin Ratio 0.50 Subjective 24 Hr Interval Summary Free Text/Dictation Patient had 3 episodes of vomiting yesterday Exam/Review of Systems Exam Vitals Vital Signs Date Temp Pulse Resp B/P (MAP) Pulse Ox O2 O2 Flow FiO2 Time Delivery Rate 05/31/18 97.6 61 17 117/54 99 11:05 (75) 05/30/18 Room Air 15:43 Intake and Output 05/30/18 05/30/18 05/31/18 1515:00 23:00 07:00 IntakeIntake Total 500 ml 350 ml BalanceBalance 500 ml 350 ml Exam Awake alert oriented Neck: supple Respiratory: clear to auscultation Cardiovascular: regular rate and rhythm Gastrointestinal: soft Musculoskeletal: nl extremities to inspection Extremities: normal pulses edema+ Results Results 24hrs Laboratory Tests Test 05/31/18 06:33 Sodium Level 136 Potassium Level 4.2 Chloride Level 105 Carbon Dioxide Level 22 Anion Gap 9 Blood Urea Nitrogen 35 H Creatinine 1.67 H Est Glomerular Filtrat Rate mL/min Glucose Level 174 Calcium Level 8.3 L Total Bilirubin 1.9 H Direct Bilirubin 0.00 Indirect Bilirubin 1.9 H Aspartate Amino Transf (AST/SGOT) 99 H Alanine Aminotransferase (ALT/SGPT) 97 H Alkaline Phosphatase 151 H Ammonia 175 #H Total Protein 5.7 L Albumin 1.9 L Globulin 3.80 H Albumin/Globulin Ratio 0.50 Medications Medication Current Medications Brimonidine/ Timolol (Combigan Oph) 1 drop BID RIGHT EYE Last administered on 05/31/18 08:30; Admin Dose 1 DROP; Start 05/28/18 at 09:00 Prednisolone Acetate (Pred-Forte 1%) 1 drop QID RIGHT EYE Last administered on 05/31/18 08:30; Admin Dose 1 DROP; Start 05/28/18 at 09:00 Propranolol HCl (Inderal) 10 mg BID PO Last administered on 05/31/18 08:30; Admin Dose 10 MG; Start 05/28/18 at 09:00 Rifaximin (Xifaxan) 550 mg BID PO Last administered on 05/31/18 08:30; Admin Dose 550 MG; Start 05/28/18 at 09:00 IV Flush (NS 3 ml) 3 ml PER PROTOCOL IV ; Start 05/27/18 at 23:30 Ondansetron HCl (Zofran Inj) 4 mg Q6H PRN IV NAUSEA/VOMITING; Start 05/27/18 at 23:30 Acetaminophen (Tylenol Tab) 650 mg Q6H PRN PO .PAIN 1-3 OR TEMP; Start 05/27/18 at 23:30 Docusate Sodium (Colace) 100 mg Q12H PRN PO .CONSTIPATION; Start 05/27/18 at 23:30 Bisacodyl (Dulcolax) 5 mg DAILY PRN PO .CONSTIPATION; Start 05/27/18 at 23:30 Lactulose (Enulose) 20 gm Q4 PO Last administered on 05/31/18 08:30; Admin Dose 20 GM; Start 05/28/18 at 01:00 Levofloxacin (Levaquin) 250 mg DAILY@06 PO Last administered on 05/31/18at 05:51; Admin Dose 250 MG; Start 05/29/18 at 06:00 Pantoprazole (Protonix Tab) 40 mg DAILY@06 PO Last administered on 05/31/18at 05:51; Admin Dose 40 MG; Start 05/30/18 at 06:00 Hydralazine HCl (Apresoline) 10 mg Q6H PRN IV ELEVATED BLOOD PRESSURE Last administered on 05/31/18at 00:42; Admin Dose 10 MG; Start 05/30/18 at 07:30 Furosemide (Lasix) 40 mg DAILY IV ; Start 06/01/18 at 09:00 GABRIELA ESPINO MD May 31, 2018 12:10
[2018-06-01] VITALS (11 sets, daily range): BP systolic 120–171; BP diastolic 56–74; PULSE 55–70; RESP 18
[2018-06-01] MEDS: LACTULOSE 30ML CUP PO SCH ×6 (00:50→20:51)
[2018-06-01] MEDS: PANTOPRAZOLE (EC) 40 MG TAB PO SCH (06:08)
[2018-06-01] MEDS: RIFAXIMIN 550 MG TAB PO SCH ×2 (08:27→20:49)
[2018-06-01] MEDS: PROPRANOLOL 10 MG TAB PO SCH ×2 (08:27→20:50)
[2018-06-01] MEDS: PREDNISOLONE ACET 1% 5 ML OPH RIGHT EYE SCH ×4 (08:28→20:51)
[2018-06-01] MEDS: BRIMONIDINE 0.2%-TIMOLOL 0.5% 5ML OPH RIGHT EYE SCH ×2 (08:28→20:51)
[2018-06-01] MEDS ORDERED: FUROSEMIDE 40 MG TAB PO SCH (09:00)
[2018-06-01] MEDS ORDERED: FUROSEMIDE 40 MG INJ IV SCH (09:00)
--- NOTE | 2018-06-01 14:43 | PN ---
Date/Time of Note Date/Time of Note DATE: 06/01/18 TIME: 14:40 Assessment/Plan VTE Prophylaxis Risk score (from Ns)>0 risk: 6 SCD applied (from Ns): Yes Pharmacological prophylaxis: NA/contraindicated Pharm contraindication: low risk/ambulating Lines/Catheters IV Catheter Type (from [facility]): Saline Lock Assessment/Plan Assessment/Plan 77 y/o with 1. SIRS. UA is negative, chest xray is negative. 2. TRISTON, creatinine in 03/2018 was normal, now elevated 1.15, hyperkalemia. Getting elevated rising up likely questionable secondary to diuresis, cr 1.7 todayC 3. Hyponatremia, better. 4. Metabolic encephalopathy with AMS. Elevated ammonia. Monitor trending up however patient is awake alert oriented 5. Abnormal liver function test. 6. Liver cirrhosis with thrombocytopenia. 7. Obesity 8. History of hepatic encephalopathy with elevated ammonia. 9. Anemia 10 hyper kalemia resolved Assessment/Plan -Hold Lasix. -Recheck labs tomorrow -Transferred to [facility] -Strict I's and O's -avoid Nephrotoxic agents -Monitor ammonia levels -Continue with the lactulose / rifaximin - cw propanolol -Ambulate Result Diagram: 05/30/18 0552 06/01/18 0630 Results 24hrs Laboratory Tests Test 06/01/18 06:30 Sodium Level 137 Potassium Level 4.1 Chloride Level 104 Carbon Dioxide Level 23 Anion Gap 10 Blood Urea Nitrogen 37 H Creatinine 1.77 H Est Glomerular Filtrat Rate mL/min Glucose Level 139 Calcium Level 8.2 L Ammonia 72 #H Subjective 24 Hr Interval Summary Free Text/Dictation Feels good had 3 bowel movements creatinine trending up Cr is uptrending Exam/Review of Systems Exam Vitals Vital Signs Date Temp Pulse Resp B/P (MAP) Pulse Ox O2 O2 Flow FiO2 Time Delivery Rate 06/01/18 55 13:12 06/01/18 98.5 18 144/66 99 Room Air 11:30 (92) Intake and Output 05/31/18 05/31/18 06/01/18 1515:00 23:00 07:00 IntakeIntake Total 100 ml BalanceBalance 100 ml Exam Awake alert oriented Neck: supple Respiratory: clear to auscultation Cardiovascular: regular rate and rhythm Gastrointestinal: soft Musculoskeletal: nl extremities to inspection Extremities: normal pulses edema+ Results Results 24hrs Laboratory Tests Test 06/01/18 06:30 Sodium Level 137 Potassium Level 4.1 Chloride Level 104 Carbon Dioxide Level 23 Anion Gap 10 Blood Urea Nitrogen 37 H Creatinine 1.77 H Est Glomerular Filtrat Rate mL/min Glucose Level 139 Calcium Level 8.2 L Ammonia 72 #H Medications Medication Current Medications Brimonidine/ Timolol (Combigan Oph) 1 drop BID RIGHT EYE Last administered on 06/01/18 08:28; Admin Dose 1 DROP; Start 05/28/18 at 09:00 Prednisolone Acetate (Pred-Forte 1%) 1 drop QID RIGHT EYE Last administered on 06/01/18 13:14; Admin Dose 1 DROP; Start 05/28/18 at 09:00 Propranolol HCl (Inderal) 10 mg BID PO Last administered on 06/01/18 08:27; Admin Dose 10 MG; Start 05/28/18 at 09:00 Rifaximin (Xifaxan) 550 mg BID PO Last administered on 06/01/18 08:27; Admin Dose 550 MG; Start 05/28/18 at 09:00 IV Flush (NS 3 ml) 3 ml PER PROTOCOL IV ; Start 05/27/18 at 23:30 Ondansetron HCl (Zofran Inj) 4 mg Q6H PRN IV NAUSEA/VOMITING; Start 05/27/18 at 23:30 Acetaminophen (Tylenol Tab) 650 mg Q6H PRN PO .PAIN 1-3 OR TEMP; Start 05/27/18 at 23:30 Docusate Sodium (Colace) 100 mg Q12H PRN PO .CONSTIPATION; Start 05/27/18 at 23:30 Bisacodyl (Dulcolax) 5 mg DAILY PRN PO .CONSTIPATION; Start 05/27/18 at 23:30 Lactulose (Enulose) 20 gm Q4 PO Last administered on 06/01/18 13:14; Admin Dose 20 GM; Start 05/28/18 at 01:00 Pantoprazole (Protonix Tab) 40 mg DAILY@06 PO Last administered on 06/01/18 06:08; Admin Dose 40 MG; Start 05/30/18 at 06:00 Hydralazine HCl (Apresoline) 10 mg Q6H PRN IV ELEVATED BLOOD PRESSURE Last administered on 05/31/18at 00:42; Admin Dose 10 MG; Start 05/30/18 at 07:30 GABRIELA ESPINO MD Jun 01, 2018 14:43
[2018-06-01] MEDS: hydrALAzine 20 MG INJ IV PRN (20:47)
[2018-06-02 00:06] VITALS: BP 123/85; PULSE 78; RESP 18
[2018-06-02] MEDS: LACTULOSE 30ML CUP PO SCH ×4 (00:15→12:38)
[2018-06-02 03:44] VITALS: BP 127/82; PULSE 75; RESP 18
[2018-06-02] MEDS: PANTOPRAZOLE (EC) 40 MG TAB PO SCH (05:40)
[2018-06-02 05:50] VITALS: BP 165/65; PULSE 71
[2018-06-02 08:02] VITALS: BP 137/60; PULSE 58; RESP 18
[2018-06-02] MEDS: PREDNISOLONE ACET 1% 5 ML OPH RIGHT EYE SCH ×2 (08:23→12:38)
[2018-06-02] MEDS: PROPRANOLOL 10 MG TAB PO SCH (08:23)
[2018-06-02] MEDS: BRIMONIDINE 0.2%-TIMOLOL 0.5% 5ML OPH RIGHT EYE SCH (08:23)
[2018-06-02] MEDS: RIFAXIMIN 550 MG TAB PO SCH (08:23)
--- NOTE | 2018-06-02 10:48 | PDOCDIS ---
Discharge Instructions DIAGNOSIS Discharge Diagnosis Hep enacephalopathy TRISTON CONDITION [id number] Patient Condition: [id number] Good HOME CARE INSTRUCTIONS: [id number] Diet Instructions: [id number] Low Fat /Cholesterol ACTIVITY: [id number] Activity Restrictions: [id number] Slowly Increase Activity Rest between Activity Avoid heavy lifting FOLLOW UP/APPOINTMENTS Follow-up Plan F/U BMP in 1 week, f/u PCP in 1 week, pCP to decide about Lasix cw lactulose return to ER if has cp/sob/ worseing edema/confusion GABRIELA ESPINO MD Jun 02, 2018 10:48
[2018-06-02] MEDS ORDERED: RIFA550T4 PO (10:49)
[2018-06-02] MEDS ORDERED: LACT10SO5 PO (10:49)
[2018-06-02 11:42] VITALS: BP 144/63; PULSE 64; RESP 18
== END 2018-06-02 14:05 | disposition home health service (06) | DRG 441 ==
LOC: E/R 17:33 → TEL 20:37
PROVIDERS: ADMIT Internal Medicine Nephrology; ATTEND Internal Medicine Nephrology
DX: K72.90 Hepatic failure, unspecified without coma (principal); G93.41 Metabolic encephalopathy; E87.1 Hypo-osmolality and hyponatremia; N17.9 Acute kidney failure, unspecified; E72.20 Disorder of urea cycle metabolism, unspecified; R65.10 Systemic inflammatory response syndrome (SIRS) of non-infectious origin without acute organ dysfunction; K74.60 Unspecified cirrhosis of liver; E66.9 Obesity, unspecified; Z68.32 Body mass index [BMI] 32.0-32.9, adult; E87.5 Hyperkalemia; D69.6 Thrombocytopenia, unspecified; D72.829 Elevated white blood cell count, unspecified
CPT/HCPCS: 36415; 70450; 71045; 76700; 80048; 80053; 80307; 81001; 82140; 83036; 83935; 84300; 84484; 85025; 93005; C9113; J0360; J1940; J2405; J7030

== ENCOUNTER 2018-06-24 14:02 | Inpatient (IN) | payer BC ==
[~2018-06-24] VITALS: Ht 154.9 cm; Wt 70.0 kg
[~2018-06-24 14:02] MED LIST changes: -FURO40TA4 PO; -HYDR-4011 PO
[2018-06-24] MEDS ORDERED: VANCOMYCIN 1 GM (PMX) 250 ML IVPB STA (15:47)
[2018-06-24] MEDS ORDERED: AZTREONAM 1 GM/NS (PMX) 50 ML IVPB STA (15:47)
[2018-06-24] MEDS ORDERED: SODIUM CHLORIDE 0.9% 1L BAG IV* STA (15:47)
[2018-06-24] MEDS ORDERED: ACETAMINOPHEN 325 MG TAB PO PRN (17:00)
[2018-06-24] MEDS ORDERED: ONDANSETRON 4 MG INJ IV PRN (17:00)
[2018-06-24 18:50] VITALS: BP 148/69; PULSE 71; RESP 16
[2018-06-24 19:00] VITALS: BP 148/69; PULSE 71; RESP 18
--- NOTE | 2018-06-24 19:11 | ERD ---
ER Documentation Chief Complaint Chief Complaint dizziness and fatigue today HPI Patient is a 77-year-old female with hypertension who presents with dizziness. She has dizziness and chills with started this morning. Fevers. She feels all over weakness. She has trouble speaking. She had shortness of breath but no pain. Upon review of old medical records this is the patient's ninth visit to the ER since 2016. The family does not remember the name of the primary doctor. ROS All systems reviewed and are negative except as per history of present illness. Medications Home Meds Active Scripts Rifaximin* (Xifaxan*) 550 Mg Tablet, 550 MG PO BID for 30 Days, TAB Prov:GABRIELA ESPINO MD 06/02/18 Lactulose* (Lactulose*) 10 Gm/15 Ml Solution, 30 GM PO Q6 PRN for CONSTIPATION for 30 Days, ML Prov:GABRIELA ESPINO MD 06/02/18 Ibuprofen* (Motrin*) 400 Mg Tab, 400 MG PO Q8, #30 TAB Prov:JACLYN LEA DO 05/23/18 Reported Medications Brimonidine/Timolol* (Combigan*) 5 Ml Drops, 1 DROP RIGHT EYE BID, BOTTLE 04/03/18 Prednisolone Acetate* (Pred Forte*) 5 Ml Susp, 1 DROP RIGHT EYE QID, EA 04/03/18 Atropine Sulfate* (Atropine Sulfate*) 3.5 Gm Oint, 1 APPLIC BOTH EYES DAILY, #1 TUB 04/01/18 Propranolol Hcl* (Propranolol Hcl*) 10 Mg Tablet, 10 MG PO BID, TAB 04/01/18 Allergies Allergies: Coded Allergies: Penicillins (Verified Allergy, Severe, TONGUE TURNED BLACK, SORETHROAT, 06/24/18) PMhx/Soc History of Surgery: No Anesthesia Reaction: No Hx Neurological Disorder: Yes (confusion) Hx Respiratory Disorders: No Hx Cardiac Disorders: No Hx Psychiatric Problems: Yes (depression) Hx Alcohol Use: No Hx Substance Use: No Hx Tobacco Use: No Smoking Status: Never smoker FmHx Family History: diabetes Physical Exam Vitals Vital Signs Date Temp Pulse Resp B/P (MAP) Pulse Ox O2 O2 Flow FiO2 Time Delivery Rate 06/24/18 72 18 173/73 100 Room Air 16:30 (106) 06/24/18 67 18 155/72 100 Room Air 16:11 (99) 06/24/18 Nasal 2 15:42 Cannula 06/24/18 69 18 142/67 100 Room Air 15:09 (92) 06/24/18 98.2 70 18 157/70 100 14:17 (99) Physical Exam Const: No acute distress Head: Atraumatic Eyes: Normal Conjunctiva ENT: Normal External Ears, Nose and Mouth. Neck: Full range of motion. No meningismus. Resp: Clear to auscultation bilaterally Cardio: Regular rate and rhythm, no murmurs Abd: Soft, non tender, non distended. Normal bowel sounds Skin: No petechiae or rashes Back: No midline or flank tenderness Ext: No cyanosis, or edema Neur: Awake but diffusely weak, no focal weakness, no slurred speech Result Diagram: 06/24/18 1513 06/24/18 1513 Results 24 hrs Laboratory Tests Test 06/24/18 15:13 06/24/18 15:14 06/24/18 15:25 06/24/18 15:52 White Blood Count 5.8 10^3/ul Red Blood Count 2.68 10^6/ul Hemoglobin 9.1 g/dl Hematocrit 27.4 % Mean Corpuscular 102.2 fl Volume Mean Corpuscular 34.0 pg Hemoglobin Mean Corpuscular 33.2 g/dl Hemoglobin Concen t Red Cell 15.7 % Distribution Width Platelet Count 110 10^3/UL Mean Platelet 10.8 fl Volume Immature 0.300 % Granulocytes % Neutrophils % 50.3 % Lymphocytes % 37.0 % Monocytes % 10.2 % Eosinophils % 1.7 % Basophils % 0.5 % Nucleated Red 0.0 /100WBC Blood Cells % Immature 0.020 10^3/ul Granulocytes # Neutrophils # 2.9 10^3/ul Lymphocytes # 2.1 10^3/ul Monocytes # 0.6 10^3/ul Eosinophils # 0.1 10^3/ul Basophils # 0.0 10^3/ul Nucleated Red 0.0 10^3/ul Blood Cells # Prothrombin Time 20.8 Sec Prothrombin Time 1.6 Ratio INR International 1.78 Normalized Ratio Activated 40.2 Sec Partial Thrombopl ast Time Sodium Level 137 mmol/L Potassium Level 4.3 mmol/L Chloride Level 110 mmol/L Carbon Dioxide 20 mmol/L Level Anion Gap 7 Blood Urea 21 mg/dl Nitrogen Creatinine 1.63 mg/dl Est Glomerular mL/min Filtrat Rate mL/min Glucose Level 245 mg/dl Calcium Level 8.1 mg/dl Troponin I < 0.012 ng/ml Triglycerides 63 mg/dl Level Cholesterol Level 97 mg/dl LDL Cholesterol, 52 mg/dl Calculated HDL Cholesterol 32 mg/dl Cholesterol/HDL 3.0 RATIO Ratio Hemoglobin A1c 6.7 % Urine Color TONY Urine Clarity CLOUDY Urine pH 6.0 Urine Specific 1.013 [place] Urine Ketones NEGATIVE mg/dL Urine Nitrite NEGATIVE mg/dL Urine Bilirubin NEGATIVE mg/dL Urine NEGATIVE mg/dL Urobilinogen Urine Leukocyte 2+ Lisette/ul Esterase Urine Microscopic 13 /HPF RBC Urine Microscopic 20 /HPF WBC Urine Squamous MANY /HPF Epithelial Cells Urine Bacteria MANY /HPF Urine Hyaline FEW /HPF Casts Urine Mucus FEW /HPF Urine Hemoglobin 2+ mg/dL Urine Glucose NEGATIVE mg/dL Urine Total NEGATIVE mg/dl Protein Urine Opiates Negative Screen Urine Negative Barbiturates Urine Negative Amphetamines Screen Urine Negative Benzodiazepines Screen Urine Cocaine Negative Screen Urine Negative Cannabinoids POC Venous 2.0 mmol/L Lactate Test 06/24/18 15:55 Bedside Glucose 229 mg/dL Current Medications Medications Dose Sig/Young Start Time Status Last (Trade) Ordered Route PRN Stop Time Admin Dose Reason Admin Sodium 2,110 ml BOLUS OVER 2 06/24/18 DC 06/24/18 Chloride HOURS STAT 15:47 16:09 (NS) IV* 06/24/18 15:48 Vancomycin 250 ml @ ONCE STAT 06/24/18 DC 06/24/18 HCl 125 mls/hr IVPB 15:47 16:40 06/24/18 17:46 Aztreonam 50 ml @ ONCE STAT 06/24/18 DC 06/24/18 100 mls/hr IVPB 15:47 16:09 06/24/18 16:16 Procedures/MDM Patient is a 77-year-old female who presents with dizziness and chills. The patient was found to have acute cystitis with severe sepsis. Sepsis Documentation: Patient's infectious symptoms have not stabilized and the patient is at risk of rapid decompensation. The patient will be admitted for careful hydration, an tibiotic therapy, and infectious source control. SEVERE SEPSIS CRITERIA: Infectious source: Cystitis End organ damage indicated by: Lactate 2.0 SEPSIS MANAGEMENT Time of recognition of sepsis: 1525. Time of recognition of severe sepsis: 1552. Time of recognition of septic shock: [No septic shock at this time]. 3 HOUR BUNDLE Blood cultures x 2 before broad-spectrum antibiotics: [Yes] 30 ml/kg NS bolus [Completed] Initial lactate 2.0 Repeat lactate pending SEPTIC SHOCK ASSESSMENT: [No] lactic acid > 4.0 [No] Persistent hypotension (SBP < 90 or 40 mmHg drop, MAP < 65) despite 30 m L/kg IV fluid bolus VOLUME REASSESSMENT FOR SEPTIC SHOCK: No septic shock PERSISTENT HYPOTENSION TREATMENT: Comfort care [No] Central line [Not Required] Vasopressor started [Not required] I considered further perfusion assessment with CVP measurement, SCVO2, bedside ultrasound volume assessment, passive leg raise, trial of further fluid bolus. And proceeded with [30 ml/kg fluid bolus of NSS, broad spectrum antibiotics, and admission.] The patient will be admitted to the care of Dr. Cortez as she has [facility] insurance. The patient will be admitted to a medical surgical bed and was given fluids and antibiotics. CRITICAL CARE Critical care time [35] minutes Emergent fluid management while maintaining close respiratory support. Provision of immediate and broad-spectrum antibiotic therapy. Simultaneous assessment for possible sources in order to direct targeted therapy. Consideration for invasive and chemical support to prevent cardiopulmonary collapse. Critical care time is independent of procedures performed. Departure Diagnosis: Primary Impression: Severe sepsis Additional Impressions: Dizziness Cystitis Condition: Serious KENTRELL MCCORMACK MD Jun 24, 2018 19:11
[2018-06-24] MEDS ORDERED: FURO40TA4 PO (20:25)
[2018-06-24] MEDS ORDERED: METR500T PO (20:28)
[2018-06-24] MEDS ORDERED: LOSA1TAB28 PO (20:28)
[2018-06-24] MEDS ORDERED: OMEPRAZOLE PO (20:28)
[2018-06-24 20:32] VITALS: BP 147/65; PULSE 70; RESP 20
[2018-06-24] MEDS ORDERED: LACT10SO5 PO (20:35)
[2018-06-24] MEDS ORDERED: FUROSEMIDE 40 MG TAB PO SCH (21:00)
[2018-06-24 21:44] VITALS: Ht 154.9 cm; Wt 70.0 kg
[2018-06-24] MEDS: RIFAXIMIN 550 MG TAB PO SCH (21:54)
[2018-06-24] MEDS: LACTULOSE 30ML CUP PO SCH (21:54)
[2018-06-24] MEDS: PROPRANOLOL 10 MG TAB PO SCH (21:55)
[2018-06-24] MEDS: LEVOFLOXACIN 500MG/D5W (PMX) 100 ML IVPB SCH (22:51)
[2018-06-25 02:00] VITALS: BP 141/64; PULSE 83; RESP 18
[2018-06-25] MEDS ORDERED: PANTOPRAZOLE 40 MG INJ IV SCH (06:00)
[2018-06-25] MEDS: RIFAXIMIN 550 MG TAB PO SCH ×2 (08:43→21:30)
[2018-06-25] MEDS: PROPRANOLOL 10 MG TAB PO SCH ×2 (08:44→21:31)
[2018-06-25] MEDS: LACTULOSE 30ML CUP PO SCH ×2 (08:51→21:29)
[2018-06-25] MEDS ORDERED: POTASSIUM CHLORIDE (SR) 20 MEQ TAB PO STA (08:57)
[2018-06-25] MEDS ORDERED: HYDROCHLOROTHIAZIDE 12.5 MG CAP PO SCH (09:00)
[2018-06-25] MEDS ORDERED: LOSARTAN 50 MG TAB PO SCH (09:00)
[2018-06-25] MEDS ORDERED: ENOXAPARIN 30 MG/0.3 ML SYG SC SCH (09:00)
[2018-06-25 09:08] VITALS: BP 130/60; PULSE 81; RESP 18
--- NOTE | 2018-06-25 12:00 | HP ---
YOKO CRUZ 06/25/18 1200: Date/Time of Note Date/Time of Note DATE: 06/25/18 TIME: 11:58 Assessment/Plan VTE Prophylaxis Risk score (from [facility] [place])>0 risk: 6 SCD applied (from [facility]): No SCD contraindicated: low risk/ambulating Pharmacological prophylaxis: NA/contraindicated Pharm contraindication: blood coag disorder, thrombocytopenia Lines/Catheters IV Catheter Type (from [facility]): Saline Lock Assessment/Plan Hospital Course 1. Sepsis more likely secondary to urinary tract infection. Lactic acid is elevated . Urinalysis is abnormal with positive leukocyte esterase. chest x- ray is negative 2. Altered level of consciousness secondary to history of liver cirrhosis. Ammonia level is elevated today is 48. CT scan of the head is negative 3. Liver cirrhosis with thrombocytopenia 4. Mild macrocytic hyperchromic anemia with neutropenia 5. TRISTON, cr 1.67 2/2 UTI. Last admission creatinine was up to 1.7 6. Diabetes mellitus type 2 7. Hypertension 8. Overweight 9. History of cataract 10. Depression 11. Hypokalemia Assessment/Plan -Continue with home medication rifampin, lactulose, and propranolol -DVT prophylaxis SCD, unable to start chemical DVT prophylaxis due to thrombocytopenia - GI prophylaxis Famotidine BID -Gentle IV hydration -continue with Levaquin -Monitoring creatinine daily -Check hemoglobin A1c tomorrow -Hypoglycemic control -Potassium supplement once Result Diagram: 06/25/18 0625 06/25/18 0625 Results 24hrs Laboratory Tests Test 06/24/18 15:13 06/24/18 15:14 06/24/18 15:25 06/24/18 15:52 White Blood Count 5.8 # Red Blood Count 2.68 L Hemoglobin 9.1 L Hematocrit 27.4 L Mean Corpuscular 102.2 H Volume Mean Corpuscular 34.0 H Hemoglobin Mean Corpuscular 33.2 Hemoglobin Concent Red Cell 15.7 H Distribution Width Platelet Count 110 #L Mean Platelet Volume 10.8 H Immature 0.300 Granulocytes % Neutrophils % 50.3 Lymphocytes % 37.0 Monocytes % 10.2 Eosinophils % 1.7 Basophils % 0.5 Nucleated Red Blood 0.0 Cells % Immature 0.020 Granulocytes # Neutrophils # 2.9 Lymphocytes # 2.1 Monocytes # 0.6 Eosinophils # 0.1 Basophils # 0.0 Nucleated Red Blood 0.0 Cells # Prothrombin Time 20.8 H Prothrombin Time 1.6 Ratio INR International 1.78 Normalized Ratio Activated 40.2 H Partial Thromboplast Time Sodium Level 137 Potassium Level 4.3 Chloride Level 110 Carbon Dioxide Level 20 L Anion Gap 7 Blood Urea Nitrogen 21 H Creatinine 1.63 H Est Glomerular Filtrat Rate mL/min Glucose Level 245 H Calcium Level 8.1 L Troponin I < 0.012 Triglycerides Level 63 Cholesterol Level 97 L LDL Cholesterol, 52 Calculated HDL Cholesterol 32 L Cholesterol/HDL 3.0 Ratio Hemoglobin A1c 6.7 H Urine Color TONY Urine Clarity CLOUDY A Urine pH 6.0 Urine Specific 1.013 [place] Urine Ketones NEGATIVE Urine Nitrite NEGATIVE Urine Bilirubin NEGATIVE Urine Urobilinogen NEGATIVE Urine Leukocyte 2+ H Esterase Urine Microscopic 13 H RBC Urine Microscopic 20 H WBC Urine Squamous MANY A Epithelial Cells Urine Bacteria MANY A Urine Hyaline Casts FEW A Urine Mucus FEW A Urine Hemoglobin 2+ H Urine Glucose NEGATIVE Urine Total Protein NEGATIVE Urine Opiates Screen Negative Urine Barbiturates Negative Urine Amphetamines Negative Screen Urine Negative Benzodiazepines Screen Urine Cocaine Screen Negative Urine Cannabinoids Negative POC Venous Lactate 2.0 Test 06/24/18 15:55 06/24/18 20:17 06/25/18 06:25 Bedside Glucose 229 H Lactic Acid Level 2.0 White Blood Count 4.4 #L Red Blood Count 2.62 L Hemoglobin 8.8 L Hematocrit 26.4 L Mean Corpuscular 100.8 Volume Mean Corpuscular 33.6 H Hemoglobin Mean Corpuscular 33.3 Hemoglobin Concent Red Cell 15.6 H Distribution Width Platelet Count 102 L Mean Platelet Volume 10.8 H Immature 0.200 Granulocytes % Neutrophils % 47.3 Lymphocytes % 37.3 Monocytes % 12.0 H Eosinophils % 2.3 Basophils % 0.9 Nucleated Red Blood 0.0 Cells % Immature 0.010 Granulocytes # Neutrophils # 2.1 Lymphocytes # 1.7 Monocytes # 0.5 Eosinophils # 0.1 Basophils # 0.0 Nucleated Red Blood 0.0 Cells # Sodium Level 139 Potassium Level 3.3 L Chloride Level 116 H Carbon Dioxide Level 19 L Anion Gap 4 L Blood Urea Nitrogen 19 Creatinine 1.31 H Est Glomerular Filtrat Rate mL/min Glucose Level 113 # Calcium Level 7.9 L Ammonia 48 H HPI/ROS Admit Date/Time Admit Date/Time Jun 24, 2018 at 16:54 Hx of Present Illness Patient is a 77-year-old female with hypertension and history of liver cirrhosis presented to the emergency room with dizziness. She had dizziness and chills that started yesterday. Reported fevers, weakness, urine retention and trouble speaking. She was in the hospital with metabolic encephalopathy 1 months ago May 2018. ROS Constitutional: no complaints, improved Gastrointestinal: constipation; No no complaints, No pain, No blood, No decreased appetite, No diarrhea, No flatus, No nausea, No passing stool, No vomiting, No other Neurologic: confusion; No no complaints, No dizziness, No focal-weakness, No headache, No syncope, No seizure, No other PMH/Family/Social Past Medical History Medical History: diabetes, hypertension Medications Current Medications Lactulose (Enulose) 30 gm Q12 PO Last administered on 06/25/18 08:51; Admin Dose 30 GM; Start 06/24/18 at 21:00 Propranolol HCl (Inderal) 10 mg BID PO Last administered on 06/25/18 08:44; Admin Dose 10 MG; Start 06/24/18 at 21:00 Rifaximin (Xifaxan) 550 mg BID PO Last administered on 06/25/18 08:43; Admin Dose 550 MG; Start 06/24/18 at 21:00 Losartan Potassium (Cozaar) 100 mg DAILY PO Last administered on 06/25/18 08:43; Admin Dose 100 MG; Start 06/25/18 at 09:00 Acetaminophen (Tylenol Tab) 650 mg Q6H PRN PO MILD PAIN(1-3)OR ELEVATED TEMP; Start 06/24/18 at 21:00 Enoxaparin Sodium (Lovenox) 30 mg DAILY SC ; Start 06/25/18 at 09:00 Levofloxacin/ Dextrose 100 ml @ 100 mls/hr Q24H IVPB Last administered on 06/24/18 22:51; Admin Dose 100 MLS/HR; Start 06/24/18 at 22:00 Hydrochlorothiazide (Hydrochlorothiazide) 12.5 mg DAILY PO Last administered on 06/25/18 08:43; Admin Dose 12.5 MG; Start 06/25/18 at 09:00 Furosemide (Lasix) 40 mg DAILY PO ; Start 06/25/18 at 15:00 Famotidine (Pepcid) 20 mg DAILY PO ; Start 06/26/18 at 09:00 Coded Allergies: Penicillins (Verified Allergy, Severe, TONGUE TURNED BLACK, SORETHROAT, 06/24/18) Past Surgical History Past Surgical Hx: other (hx of esophageal banding) Family History Significant Family History: no pertinent family hx Social History Alcohol Use: none Smoking Status: Never smoker Drug Use: none Exam/Review of Systems Vital Signs Vitals Vital Signs Date Temp Pulse Resp B/P (MAP) Pulse Ox O2 O2 Flow FiO2 Time Delivery Rate 06/25/18 98.2 81 18 130/60 99 Room Air 09:08 (83) 06/24/18 2 15:42 Intake and Output 06/24/18 06/24/18 06/25/18 1515:00 23:00 07:00 IntakeIntake Total 370 ml 1000 ml BalanceBalance 370 ml 1000 ml Exam Constitutional: alert, oriented ENMT: nl external ears & nose Neck: supple Respiratory: clear to auscultation Cardiovascular: regular rate and rhythm Gastrointestinal: soft Genitourinary - Female: CVA tenderness; No nl adnexae, No nl external genitalia, No CMT, No uterus, No other GABRIELA ESPINO MD 06/25/18 2140: Assessment/Plan Assessment/Plan Assessment/Plan SEEN AND EXAMINED uti/sepsis Hep encephalopathy Result Diagram: 06/25/18 0625 06/25/18 0625 PMH/Family/Social Past Medical History Coded Allergies: Penicillins (Verified Allergy, Severe, TONGUE TURNED BLACK, SORETHROAT, 06/24/18) YOKO VEGA Jun 25, 2018 12:00 GABRIELA ESPINO MD Jun 25, 2018 21:40
[2018-06-25] MEDS ORDERED: GLUCAGON 1 MG INJ IM PRN (12:30)
[2018-06-25] MEDS ORDERED: GLUCOSE GEL 15 GRAM TUBE BUCCAL PRN (12:30)
[2018-06-25] MEDS ORDERED: POTASSIUM CHLORIDE 20 MEQ POWDER FOR ORAL SOLN PO ONE (12:30)
[2018-06-25] MEDS ORDERED: DEXTROSE 50% 50 ML SYRINGE IV PRN ×2 (12:30)
[2018-06-25] MEDS ORDERED: GLUCOSE GEL 15 GRAM TUBE PO PRN ×2 (12:30)
[2018-06-25] MEDS: INSULIN ASPART [NOVOLOG] 3 ML PEN SC SCH ×3 (12:51→21:34)
[2018-06-25 14:38] VITALS: BP 126/58; PULSE 71; RESP 18
[2018-06-25] MEDS: FUROSEMIDE 40 MG TAB PO SCH (15:10)
[2018-06-25 20:00] VITALS: BP 120/56; PULSE 72; RESP 18
[2018-06-25] MEDS: LEVOFLOXACIN 500MG/D5W (PMX) 100 ML IVPB SCH (21:31)
[2018-06-26 02:00] VITALS: BP 128/53; PULSE 73; RESP 18
[2018-06-26] MEDS: ACCU-CHEK XX SCH (02:00)
[2018-06-26 08:00] VITALS: BP 116/57; PULSE 77; RESP 18
[2018-06-26] MEDS: INSULIN ASPART [NOVOLOG] 3 ML PEN SC SCH ×4 (08:00→21:45)
[2018-06-26] MEDS: PROPRANOLOL 10 MG TAB PO SCH ×2 (08:47→21:44)
[2018-06-26] MEDS: RIFAXIMIN 550 MG TAB PO SCH ×2 (08:47→21:39)
[2018-06-26] MEDS: FAMOTIDINE 20 MG TAB PO SCH (08:47)
[2018-06-26] MEDS: FUROSEMIDE 40 MG TAB PO SCH (09:00)
--- NOTE | 2018-06-26 09:34 | PN ---
Date/Time of Note Date/Time of Note DATE: 06/26/18 TIME: 09:32 Assessment/Plan VTE Prophylaxis Risk score (from [facility])>0 risk: 4 SCD applied (from [facility] [place]): Yes Pharmacological prophylaxis: NA/contraindicated Pharm contraindication: liver dx, thrombocytopenia Lines/Catheters [facility] Type (from [facility] Saline Lock Assessment/Plan Hospital Course 1. Sepsis more likely secondary to urinary tract infection. Lactic acid is elevated . Urinalysis is abnormal with positive leukocyte esterase. chest x- ray is negative 2. Altered level of consciousness secondary to history of liver cirrhosis, resolved Ammonia level is elevated today is 48. CT scan of the head is negative 3. Liver cirrhosis with thrombocytopenia 4. Mild macrocytic hyperchromic anemia with neutropenia 5. TRISTON, trending up today 1.87 from cr 1.67 on admission2/2 UTI. Last admission creatinine was up to 1.7 6. Diabetes mellitus type 2, uncontrolled 7. Hypertension 8. Overweight 9. History of cataract 10. Depression 11. Hypokalemia, resolved 12. Hypocalcemia Assessment/Plan -Continue with home medication rifampin, lactulose, and propranolol -DVT prophylaxis SCD, unable to start chemical DVT prophylaxis due to thrombocytopenia - GI prophylaxis Famotidine BID -Gentle IV hydration -continue with Levaquin -Monitoring creatinine daily -Check hemoglobin A1c tomorrow -Hypoglycemic control -Potassium supplement once Result Diagram: 06/26/18 0454 06/26/18 0454 Results 24hrs Laboratory Tests Test 06/25/18 12:36 06/25/18 17:35 06/25/18 21:28 06/26/18 01:17 Bedside Glucose 266 H 333 H 209 158 Test 06/26/18 04:54 06/26/18 08:13 White Blood Count 5.1 Red Blood Count 2.29 L Hemoglobin 7.8 L Hematocrit 23.5 L Mean Corpuscular 102.6 H Volume Mean Corpuscular 34.1 H Hemoglobin Mean Corpuscular 33.2 Hemoglobin Concent Red Cell 15.9 H Distribution Width Platelet Count 96 L Mean Platelet Volume 10.8 H Immature 0.200 Granulocytes % Neutrophils % 38.9 L Lymphocytes % 46.0 Monocytes % 12.3 H Eosinophils % 2.0 Basophils % 0.6 Nucleated Red Blood 0.0 Cells % Immature 0.010 Granulocytes # Neutrophils # 2.0 Lymphocytes # 2.3 Monocytes # 0.6 Eosinophils # 0.1 Basophils # 0.0 Nucleated Red Blood 0.0 Cells # Sodium Level 136 Potassium Level 4.1 Chloride Level 110 Carbon Dioxide Level 21 Anion Gap 5 Blood Urea Nitrogen 21 H Creatinine 1.80 H Est Glomerular Filtrat Rate mL/min Glucose Level 125 Hemoglobin A1c 6.8 H Calcium Level 7.7 L Ammonia 61 H Bedside Glucose 112 Subjective 24 Hr Interval Summary Constitutional: no complaints, improved Exam/Review of Systems Exam Vitals Vital Signs Date Temp Pulse Resp B/P (MAP) Pulse Ox O2 O2 Flow FiO2 Time Delivery Rate 06/26/18 98.5 77 18 116/57 100 Room Air 08:00 (76) 06/24/18 2 15:42 Intake and Output 06/25/18 06/25/18 06/26/18 1515:00 23:00 07:00 IntakeIntake Total 120 ml 460 ml BalanceBalance 120 ml 460 ml Constitutional: alert, oriented Head: normocephalic Eyes: nl conjunctiva ENMT: nl external ears & nose Respiratory: clear to auscultation Cardiovascular: regular rate and rhythm Gastrointestinal: soft Results Results 24hrs Laboratory Tests Test 06/25/18 12:36 06/25/18 17:35 06/25/18 21:28 06/26/18 01:17 Bedside Glucose 266 H 333 H 209 158 Test 06/26/18 04:54 06/26/18 08:13 White Blood Count 5.1 Red Blood Count 2.29 L Hemoglobin 7.8 L Hematocrit 23.5 L Mean Corpuscular 102.6 H Volume Mean Corpuscular 34.1 H Hemoglobin Mean Corpuscular 33.2 Hemoglobin Concent Red Cell 15.9 H Distribution Width Platelet Count 96 L Mean Platelet Volume 10.8 H Immature 0.200 Granulocytes % Neutrophils % 38.9 L Lymphocytes % 46.0 Monocytes % 12.3 H Eosinophils % 2.0 Basophils % 0.6 Nucleated Red Blood 0.0 Cells % Immature 0.010 Granulocytes # Neutrophils # 2.0 Lymphocytes # 2.3 Monocytes # 0.6 Eosinophils # 0.1 Basophils # 0.0 Nucleated Red Blood 0.0 Cells # Sodium Level 136 Potassium Level 4.1 Chloride Level 110 Carbon Dioxide Level 21 Anion Gap 5 Blood Urea Nitrogen 21 H Creatinine 1.80 H Est Glomerular Filtrat Rate mL/min Glucose Level 125 Hemoglobin A1c 6.8 H Calcium Level 7.7 L Ammonia 61 H Bedside Glucose 112 Medications Medication Current Medications Lactulose (Enulose) 30 gm Q12 PO Last administered on 06/25/18 21:29; Admin Dose 30 GM; Start 06/24/18 at 21:00 Propranolol HCl (Inderal) 10 mg BID PO Last administered on 06/26/18 08:47; Admin Dose 10 MG; Start 06/24/18 at 21:00 Rifaximin (Xifaxan) 550 mg BID PO Last administered on 06/26/18 08:47; Admin Dose 550 MG; Start 06/24/18 at 21:00 Acetaminophen (Tylenol Tab) 650 mg Q6H PRN PO MILD PAIN(1-3)OR ELEVATED TEMP; Start 06/24/18 at 21:00 Levofloxacin/ Dextrose 100 ml @ 100 mls/hr Q24H IVPB Last administered on 06/25/18 21:31; Admin Dose 100 MLS/HR; Start 06/24/18 at 22:00 Furosemide (Lasix) 40 mg DAILY PO Last administered on 06/25/18 15:10; Admin Dose 40 MG; Start 06/25/18 at 15:00 Famotidine (Pepcid) 20 mg DAILY PO Last administered on 06/26/18 08:47; Admin Dose 20 MG; Start 06/26/18 at 09:00 Diagnostic Test (Pha) (Accu-Chek) 1 ea 02 XX ; Start 06/26/18 at 02:00 Insulin Aspart (Novolog Insulin Pen) NOVOLOG *MILD* ALGORITHM WITH MEALS BEDTIM E SC Last administered on 06/25/18 21:34; Admin Dose 1 UNIT; Start 06/25/18 at 13:30 Miscellaneous Information 1 ea NOTE XX ; Start 06/25/18 at 12:30 Glucose (Glutose) 15 gm Q15M PRN PO DECREASED GLUCOSE; Start 06/25/18 at 12:30 Glucose (Glutose) 22.5 gm Q15M PRN PO DECREASED GLUCOSE; Start 06/25/18 at 12:30 Dextrose (D50w Syringe) 25 ml Q15M PRN IV DECREASED GLUCOSE; Start 06/25/18 at 12:30 Dextrose (D50w Syringe) 50 ml Q15M PRN IV DECREASED GLUCOSE; Start 06/25/18 at 12:30 Glucagon (Glucagen) 1 mg Q15M PRN IM DECREASED GLUCOSE; Start 06/25/18 at 12:30 Glucose (Glutose) 15 gm Q15M PRN BUCCAL DECREASED GLUCOSE; Start 06/25/18 at 12:30 YOKO VEGA 16, 2019 09:34
[2018-06-26] MEDS: LACTULOSE 30ML CUP PO SCH ×2 (13:26→21:42)
[2018-06-26 14:08] VITALS: BP 111/59; PULSE 70; RESP 18
[2018-06-26] MEDS: ACETAMINOPHEN 325 MG TAB PO PRN (15:19)
[2018-06-26 20:00] VITALS: BP 122/57; PULSE 75; RESP 18
[2018-06-26] MEDS: LEVOFLOXACIN 500MG/D5W (PMX) 100 ML IVPB SCH (21:56)
[2018-06-26] MEDS ORDERED: POLYETHYLENE GLYCOL 17 GM PACKET PO ONE (22:00)
[2018-06-27 02:00] VITALS: BP 113/59; PULSE 85; RESP 18
[2018-06-27] MEDS: ACCU-CHEK XX SCH (02:00)
[2018-06-27] MEDS: INSULIN ASPART [NOVOLOG] 3 ML PEN SC SCH ×4 (08:00→21:14)
[2018-06-27] MEDS: FAMOTIDINE 20 MG TAB PO SCH (08:27)
[2018-06-27] MEDS: LACTULOSE 30ML CUP PO SCH ×2 (08:27→21:16)
[2018-06-27] MEDS: FUROSEMIDE 40 MG TAB PO SCH (08:27)
[2018-06-27] MEDS: PROPRANOLOL 10 MG TAB PO SCH ×2 (08:27→21:00)
[2018-06-27] MEDS: RIFAXIMIN 550 MG TAB PO SCH ×2 (08:28→21:16)
[2018-06-27 08:34] VITALS: BP 120/59; PULSE 75; RESP 20
[2018-06-27 14:53] VITALS: BP 101/49; PULSE 84; RESP 16
--- NOTE | 2018-06-27 18:14 | PN ---
Date/Time of Note Date/Time of Note DATE: 06/27/18 TIME: 18:12 Assessment/Plan VTE Prophylaxis Risk score (from [facility] [place])>0 risk: 4 SCD applied (from [facility] [place]): Yes Pharmacological prophylaxis: other Pharm contraindication: other Lines/Catheters IV [facility] Type (from [facility]): Saline Lock Assessment/Plan Hospital Course 1. Sepsis more likely secondary to urinary tract infection. 2. Altered level of consciousness secondary to history of liver cirrhosis, resolved Ammonia level is elevated today is 48. CT scan of the head is negative 3. Liver cirrhosis with thrombocytopenia 4. Mild macrocytic hyperchromic anemia with neutropenia 5. TRISTON, trending up today 1.87 from cr 1.67 on admission2/2 UTI. Last admission creatinine was up to 1.7 6. Diabetes mellitus type 2, uncontrolled 7. Hypertension 8. Overweight 9. History of cataract 10. Depression 11. Hypokalemia, resolved 12. Hypocalcemia Result Diagram: 06/27/18 0450 06/27/18 0450 Results 24hrs Laboratory Tests Test 06/26/18 21:38 06/27/18 02:06 06/27/18 04:50 06/27/18 08:22 Bedside Glucose 243 H 182 132 White Blood Count 4.2 L Red Blood Count 2.26 L Hemoglobin 7.6 L Hematocrit 22.5 L Mean Corpuscular 99.6 Volume Mean Corpuscular 33.6 H Hemoglobin Mean Corpuscular 33.8 Hemoglobin Concent Red Cell 15.1 H Distribution Width Platelet Count 80 L Mean Platelet Volume 10.7 H Immature 0.200 Granulocytes % Neutrophils % 40.2 Lymphocytes % 44.7 Monocytes % 11.5 H Eosinophils % 2.9 Basophils % 0.5 Nucleated Red Blood 0.0 Cells % Immature 0.010 Granulocytes # Neutrophils # 1.7 Lymphocytes # 1.9 Monocytes # 0.5 Eosinophils # 0.1 Basophils # 0.0 Nucleated Red Blood 0.0 Cells # Sodium Level 136 Potassium Level 3.7 Chloride Level 112 H Carbon Dioxide Level 19 L Anion Gap 5 Blood Urea Nitrogen 22 H Creatinine 1.83 H Est Glomerular Filtrat Rate mL/min Glucose Level 138 Calcium Level 7.5 L Test 06/27/18 13:44 06/27/18 17:28 06/27/18 17:29 Bedside Glucose 212 255 H 235 H Subjective 24 Hr Interval Summary Subjective hx not possible: other (feeling weak) Respiratory: no complaints Cardiovascular: no complaints Gastrointestinal: no complaints Genitourinary: no complaints Musculoskeletal: no complaints, back pain Neurologic: no complaints Endocrine: no complaints Exam/Review of Systems Exam Vitals Vital Signs Date Temp Pulse Resp B/P (MAP) Pulse Ox O2 O2 Flow FiO2 Time Delivery Rate 06/27/18 98.0 84 16 101/49 99 14:53 (66) 06/27/18 Room Air 08:34 06/24/18 2 15:42 Intake and Output 06/26/18 06/26/18 06/27/18 1515:00 23:00 07:00 IntakeIntake Total 700 ml 240 ml BalanceBalance 700 ml 240 ml Results Results 24hrs Laboratory Tests Test 06/26/18 21:38 06/27/18 02:06 06/27/18 04:50 06/27/18 08:22 Bedside Glucose 243 H 182 132 White Blood Count 4.2 L Red Blood Count 2.26 L Hemoglobin 7.6 L Hematocrit 22.5 L Mean Corpuscular 99.6 Volume Mean Corpuscular 33.6 H Hemoglobin Mean Corpuscular 33.8 Hemoglobin Concent Red Cell 15.1 H Distribution Width Platelet Count 80 L Mean Platelet Volume 10.7 H Immature 0.200 Granulocytes % Neutrophils % 40.2 Lymphocytes % 44.7 Monocytes % 11.5 H Eosinophils % 2.9 Basophils % 0.5 Nucleated Red Blood 0.0 Cells % Immature 0.010 Granulocytes # Neutrophils # 1.7 Lymphocytes # 1.9 Monocytes # 0.5 Eosinophils # 0.1 Basophils # 0.0 Nucleated Red Blood 0.0 Cells # Sodium Level 136 Potassium Level 3.7 Chloride Level 112 H Carbon Dioxide Level 19 L Anion Gap 5 Blood Urea Nitrogen 22 H Creatinine 1.83 H Est Glomerular Filtrat Rate mL/min Glucose Level 138 Calcium Level 7.5 L Test 06/27/18 13:44 06/27/18 17:28 06/27/18 17:29 Bedside Glucose 212 255 H 235 H Medications Medication Current Medications Lactulose (Enulose) 30 gm Q12 PO Last administered on 06/27/18at 08:27; Admin Dose 30 GM; Start 06/24/18 at 21:00 Propranolol HCl (Inderal) 10 mg BID PO Last administered on 06/27/18at 08:27; Admin Dose 10 MG; Start 06/24/18 at 21:00 Rifaximin (Xifaxan) 550 mg BID PO Last administered on 06/27/18 08:28; Admin Dose 550 MG; Start 06/24/18 at 21:00 Acetaminophen (Tylenol Tab) 650 mg Q6H PRN PO MILD PAIN(1-3)OR ELEVATED TEMP Last administered on 06/26/18 15:19; Admin Dose 650 MG; Start 06/24/18 at 21:00 Levofloxacin/ Dextrose 100 ml @ 100 mls/hr Q24H IVPB Last administered on 06/26/18at 21:56; Admin Dose 100 MLS/HR; Start 06/24/18 at 22:00 Furosemide (Lasix) 40 mg DAILY PO Last administered on 06/27/18 08:27; Admin Dose 40 MG; Start 06/25/18 at 15:00 Famotidine (Pepcid) 20 mg DAILY PO Last administered on 06/27/18 08:27; Admin Dose 20 MG; Start 06/26/18 at 09:00 Diagnostic Test (Pha) (Accu-Chek) 1 ea 02 XX ; Start 06/26/18 at 02:00 Insulin Aspart (Novolog Insulin Pen) NOVOLOG *MILD* ALGORITHM WITH MEALS BEDTIME SC Last administered on 06/27/18 17:59; Admin Dose 3 UNIT; Start 06/25/18 at 13:30 Miscellaneous Information 1 ea NOTE XX ; Start 06/25/18 at 12:30 Glucose (Glutose) 15 gm Q15M PRN PO DECREASED GLUCOSE; Start 06/25/18 at 12:30 Glucose (Glutose) 22.5 gm Q15M PRN PO DECREASED GLUCOSE; Start 06/25/18 at 12:30 Dextrose (D50w Syringe) 25 ml Q15M PRN IV DECREASED GLUCOSE; Start 06/25/18 at 12:30 Dextrose (D50w Syringe) 50 ml Q15M PRN IV DECREASED GLUCOSE; Start 06/25/18 at 12:30 Glucagon (Glucagen) 1 mg Q15M PRN IM DECREASED GLUCOSE; Start 06/25/18 at 12:30 Glucose (Glutose) 15 gm Q15M PRN BUCCAL DECREASED GLUCOSE; Start 06/25/18 at 12:30 PRASANTH PAREKH MD Jun 27, 2018 18:14
[2018-06-27 20:00] VITALS: BP 104/50; PULSE 74; RESP 18
[2018-06-27] MEDS: LEVOFLOXACIN 500MG/D5W (PMX) 100 ML IVPB SCH (21:16)
[2018-06-27] MEDS: ACETAMINOPHEN 325 MG TAB PO PRN (22:00)
[2018-06-28 02:00] VITALS: BP 117/55; PULSE 71; RESP 18
[2018-06-28] MEDS: ACCU-CHEK XX SCH (02:00)
[2018-06-28] MEDS: INSULIN ASPART [NOVOLOG] 3 ML PEN SC SCH ×4 (08:00→21:00)
[2018-06-28] MEDS: RIFAXIMIN 550 MG TAB PO SCH ×2 (08:29→21:49)
[2018-06-28] MEDS: FAMOTIDINE 20 MG TAB PO SCH (08:29)
[2018-06-28] MEDS: LACTULOSE 30ML CUP PO SCH ×2 (08:30→21:51)
[2018-06-28] MEDS: PROPRANOLOL 10 MG TAB PO SCH ×2 (08:30→21:49)
[2018-06-28] MEDS: FUROSEMIDE 40 MG TAB PO SCH (08:30)
[2018-06-28] MEDS: FLUCONAZOLE 100 MG TAB PO SCH (08:33)
[2018-06-28 08:48] VITALS: BP 120/57; PULSE 75; RESP 16
--- NOTE | 2018-06-28 13:43 | PN ---
Date/Time of Note Date/Time of Note DATE: 06/28/18 TIME: 13:39 Assessment/Plan VTE Prophylaxis Risk score (from [facility] [place]0 risk: 4 SCD applied (from [facility] [place]): Yes Pharmacological prophylaxis: NA/contraindicated Pharm contraindication: low risk/ambulating Lines/Catheters IV C[facility]ter Type (from [facility] Saline Lock Assessment/Plan Assessment/Plan Hospital Course 1. Sepsis more likely secondary to urinary tract infection. 2. Altered level of consciousness secondary to history of liver cirrhosis, resolved Ammonia level is elevated today is 48. CT scan of the head is negative 3. Liver cirrhosis with thrombocytopenia 4. Mild macrocytic hyperchromic anemia with neutropenia 5. TRISTON, trending up today 1.87 from cr 1.67 on admission2/2 UTI. Last admission creatinine was up to 1.7>1.83 6. Diabetes mellitus type 2, uncontrolled 7. Hypertension 8. Overweight 9. History of cataract 10. Depression 11. Hypokalemia, resolved 12. Hypocalcemia Plan -Continue with Diflucan/Levaquin -ammonia Levels improving -With PPI -With multivitamin -Lasix hold -recheck hb - Result Diagram: 06/28/18 0627 06/27/18 0450 Results 24hrs Laboratory Tests Test 06/27/18 13:44 06/27/18 17:28 06/27/18 17:29 06/27/18 21:11 Bedside Glucose 212 255 H 235 H 189 Test 06/28/18 01:24 06/28/18 06:27 06/28/18 06:29 06/28/18 08:00 Bedside Glucose 136 107 White Blood Count 4.1 L Red Blood Count 2.16 L Hemoglobin 7.4 L Hematocrit 22.1 L Mean Corpuscular 102.3 H Volume Mean Corpuscular 34.3 H Hemoglobin Mean Corpuscular 33.5 Hemoglobin Concent Red Cell 15.2 H Distribution Width Platelet Count 82 L Mean Platelet Volume 10.9 H Immature 0.200 Granulocytes % Neutrophils % 37.1 L Lymphocytes % 49.3 Monocytes % 9.7 Eosinophils % 3.2 Basophils % 0.5 Nucleated Red Blood 0.0 Cells % Immature 0.010 Granulocytes # Neutrophils # 1.5 L Lymphocytes # 2.0 Monocytes # 0.4 Eosinophils # 0.1 Basophils # 0.0 Nucleated Red Blood 0.0 Cells # Ammonia 39 H Test 06/28/18 12:37 Bedside Glucose 268 H Subjective 24 Hr Interval Summary Free Text/Dictation Feels okay hemoglobin is 7.4 today Exam/Review of Systems Exam Vitals Vital Signs Date Temp Pulse Resp B/P (MAP) Pulse Ox O2 O2 Flow FiO2 Time Delivery Rate 06/28/18 97.9 75 16 120/57 100 08:48 (78) 06/27/18 Room Air 08:34 06/24/18 2 15:42 Intake and Output 06/27/18 06/27/18 06/28/18 1515:00 23:00 07:00 IntakeIntake Total 240 ml 900 ml 880 ml OutputOutput Total 1250 ml BalanceBalance 240 ml 900 ml -370 ml Exam Constitutional: alert, oriented Head: normocephalic Eyes: nl conjunctiva ENMT: nl external ears & nose Respiratory: clear to auscultation Cardiovascular: regular rate and rhythm Gastrointestinal: soft Results Results 24hrs Laboratory Tests Test 06/27/18 13:44 06/27/18 17:28 06/27/18 17:29 06/27/18 21:11 Bedside Glucose 212 255 H 235 H 189 Test 06/28/18 01:24 06/28/18 06:27 06/28/18 06:29 06/28/18 08:00 Bedside Glucose 136 107 White Blood Count 4.1 L Red Blood Count 2.16 L Hemoglobin 7.4 L Hematocrit 22.1 L Mean Corpuscular 102.3 H Volume Mean Corpuscular 34.3 H Hemoglobin Mean Corpuscular 33.5 Hemoglobin Concent Red Cell 15.2 H Distribution Width Platelet Count 82 L Mean Platelet Volume 10.9 H Immature 0.200 Granulocytes % Neutrophils % 37.1 L Lymphocytes % 49.3 Monocytes % 9.7 Eosinophils % 3.2 Basophils % 0.5 Nucleated Red Blood 0.0 Cells % Immature 0.010 Granulocytes # Neutrophils # 1.5 L Lymphocytes # 2.0 Monocytes # 0.4 Eosinophils # 0.1 Basophils # 0.0 Nucleated Red Blood 0.0 Cells # Ammonia 39 H Test 06/28/18 12:37 Bedside Glucose 268 H Medications Medication Current Medications Lactulose (Enulose) 30 gm Q12 PO Last administered on 06/28/18at 08:30; Admin Dose 30 GM; Start 06/24/18 at 21:00 Propranolol HCl (Inderal) 10 mg BID PO Last administered on 06/28/18 08:30; Admin Dose 10 MG; Start 06/24/18 at 21:00 Rifaximin (Xifaxan) 550 mg BID PO Last administered on 06/28/18 08:29; Admin Dose 550 MG; Start 06/24/18 at 21:00 Acetaminophen (Tylenol Tab) 650 mg Q6H PRN PO MILD PAIN(1-3)OR ELEVATED TEMP Last administered on 06/27/18 22:00; Admin Dose 650 MG; Start 06/24/18 at 21:00 Levofloxacin/ Dextrose 100 ml @ 100 mls/hr Q24H IVPB Last administered on 06/27/18 21:16; Admin Dose 100 MLS/HR; Start 06/24/18 at 22:00 Furosemide (Lasix) 40 mg DAILY PO Last administered on 06/28/18 08:30; Admin Dose 40 MG; Start 06/25/18 at 15:00 Famotidine (Pepcid) 20 mg DAILY PO Last administered on 06/28/18 08:29; Admin Dose 20 MG; Start 06/26/18 at 09:00 Diagnostic Test (Pha) (Accu-Chek) 1 ea 02 XX ; Start 06/26/18 at 02:00 Insulin Aspart (Novolog Insulin Pen) NOVOLOG *MILD* ALGORITHM WITH MEALS BEDTIME SC Last administered on 06/28/18 12:49; Admin Dose 4 UNIT; Start 06/25/18 at 13:30 Miscellaneous Information 1 ea NOTE XX ; Start 06/25/18 at 12:30 Glucose (Glutose) 15 gm Q15M PRN PO DECREASED GLUCOSE; Start 06/25/18 at 12:30 Glucose (Glutose) 22.5 gm Q15M PRN PO DECREASED GLUCOSE; Start 06/25/18 at 12:30 Dextrose (D50w Syringe) 25 ml Q15M PRN IV DECREASED GLUCOSE; Start 06/25/18 at 12:30 Dextrose (D50w Syringe) 50 ml Q15M PRN IV DECREASED GLUCOSE; Start 06/25/18 at 12:30 Glucagon (Glucagen) 1 mg Q15M PRN IM DECREASED GLUCOSE; Start 06/25/18 at 12:30 Glucose (Glutose) 15 gm Q15M PRN BUCCAL DECREASED GLUCOSE; Start 06/25/18 at 12:30 Fluconazole (Diflucan) 300 mg DAILY PO Last administered on 06/28/18at 08:33; Admin Dose 300 MG; Start 06/28/18 at 09:00; Stop 07/01/18 at 08:59 GABRIELA ESPINO MD Jun 28, 2018 13:43
[2018-06-28 13:51] VITALS: BP 110/53; PULSE 73; RESP 18
[2018-06-28] MEDS: MULTIVITAMINS THERAPEUTIC TAB PO SCH (14:26)
[2018-06-28] MEDS: LEVOFLOXACIN 250 MG TAB PO SCH (16:37)
[2018-06-28] MEDS: ACETAMINOPHEN 325 MG TAB PO PRN (16:39)
[2018-06-28 19:50] VITALS: BP 134/62; PULSE 69; RESP 17
[2018-06-29] MEDS: ACCU-CHEK XX SCH (02:00)
[2018-06-29 02:14] VITALS: BP 120/55; PULSE 82; RESP 17
[2018-06-29] MEDS: LEVOFLOXACIN 250 MG TAB PO SCH (05:13)
[2018-06-29] MEDS: INSULIN ASPART [NOVOLOG] 3 ML PEN SC SCH ×4 (08:00→21:17)
[2018-06-29 08:06] VITALS: BP 126/58; PULSE 79; RESP 20
[2018-06-29] MEDS: LACTULOSE 30ML CUP PO SCH ×2 (09:11→21:10)
[2018-06-29] MEDS: MULTIVITAMINS THERAPEUTIC TAB PO SCH (09:11)
[2018-06-29] MEDS: PROPRANOLOL 10 MG TAB PO SCH ×2 (09:11→21:00)
[2018-06-29] MEDS: FAMOTIDINE 20 MG TAB PO SCH (09:12)
[2018-06-29] MEDS: FLUCONAZOLE 100 MG TAB PO SCH (09:12)
[2018-06-29] MEDS: RIFAXIMIN 550 MG TAB PO SCH ×2 (09:12→21:11)
[2018-06-29] MEDS ORDERED: MAGNESIUM SULFATE 2 GM/50 ML 50 ML IVPB ONE (11:30)
--- NOTE | 2018-06-29 15:39 | PN ---
Date/Time of Note Date/Time of Note DATE: 06/29/18 TIME: 15:37 Assessment/Plan VTE Prophylaxis Risk score (from [facility] [place] risk: 4 SCD applied (from [facility] [place]): Yes Pharmacological prophylaxis: NA/contraindicated Pharm contraindication: low risk/ambulating Lines/Catheters IV Catheter Type (from [facility]): Saline Lock Assessment/Plan Hospital Course Hospital Course 1. Sepsis more likely secondary to urinary tract infection. 2. Altered level of consciousness secondary to history of liver cirrhosis, resolved Ammonia level is elevated today is 48. CT scan of the head is negative 3. Liver cirrhosis with thrombocytopenia 4. Mild macrocytic hyperchromic anemia with neutropenia 5. [place]ST[place], trending up today 1.87 from cr 1.67 on admission2/2 UTI. Last admission creatinine was up to 1.7>1.83 now trending up 6. Diabetes mellitus type 2, uncontrolled 7. Hypertension 8. Overweight 9. History of cataract 10. Depression 11. Hypokalemia, resolved 12. Hypocalcemia Plan - Cr trending up? atn vs Obstruciton - strict ia nd o, bladder scan - > lasix - hold levaquin -ammonia Levels improving -With PPI -With multivitamin -Lasix hold -recheck hb 7.7 today Result Diagram: 06/29/18 0503 06/29/18 0503 Results 24hrs Laboratory Tests Test 06/28/18 17:19 06/28/18 21:50 06/29/18 05:03 06/29/18 07:59 Bedside Glucose 227 H 168 115 White Blood Count 4.0 L Red Blood Count 2.24 L Hemoglobin 7.7 L Hematocrit 22.7 L Mean Corpuscular 101.3 H Volume Mean Corpuscular 34.4 H Hemoglobin Mean Corpuscular 33.9 Hemoglobin Concent Red Cell 15.0 H Distribution Width Platelet Count 77 L Mean Platelet Volume 11.2 H Immature 0.200 Granulocytes % Neutrophils % 34.6 L Lymphocytes % 51.0 Monocytes % 10.2 Eosinophils % 3.5 Basophils % 0.5 Nucleated Red Blood 0.0 Cells % Immature 0.010 Granulocytes # Neutrophils # 1.4 L Lymphocytes # 2.1 Monocytes # 0.4 Eosinophils # 0.1 Basophils # 0.0 Nucleated Red Blood 0.0 Cells # Sodium Level 136 Potassium Level 4.0 Chloride Level 109 Carbon Dioxide Level 20 L Anion Gap 7 Blood Urea Nitrogen 25 H Creatinine 1.91 H Est Glomerular Filtrat Rate mL/min Glucose Level 121 Calcium Level 7.5 L Phosphorus Level 3.2 Magnesium Level 1.5 L Test 06/29/18 11:57 Bedside Glucose 161 Subjective 24 Hr Interval Summary Free Text/Dictation Noted to have less urination Cr Trending up Exam/Review of Systems Exam Vitals Vital Signs Date Temp Pulse Resp B/P (MAP) Pulse Ox O2 O2 Flow FiO2 Time Delivery Rate 06/29/18 98.0 79 20 126/58 100 Room Air 08:06 (80) Intake and Output 06/28/18 06/28/18 06/29/18 1515:00 23:00 07:00 IntakeIntake Total 240 ml 240 ml BalanceBalance 240 ml 240 ml Exam Constitutional: alert, oriented Head: normocephalic Eyes: nl conjunctiva ENMT: nl external ears & nose Respiratory: clear to auscultation Cardiovascular: regular rate and rhythm Gastrointestinal: soft edema++ Results Results 24hrs Laboratory Tests Test 06/28/18 17:19 06/28/18 21:50 06/29/18 05:03 06/29/18 07:59 Bedside Glucose 227 H 168 115 White Blood Count 4.0 L Red Blood Count 2.24 L Hemoglobin 7.7 L Hematocrit 22.7 L Mean Corpuscular 101.3 H Volume Mean Corpuscular 34.4 H Hemoglobin Mean Corpuscular 33.9 Hemoglobin Concent Red Cell 15.0 H Distribution Width Platelet Count 77 L Mean Platelet Volume 11.2 H Immature 0.200 Granulocytes % Neutrophils % 34.6 L Lymphocytes % 51.0 Monocytes % 10.2 Eosinophils % 3.5 Basophils % 0.5 Nucleated Red Blood 0.0 Cells % Immature 0.010 Granulocytes # Neutrophils # 1.4 L Lymphocytes # 2.1 Monocytes # 0.4 Eosinophils # 0.1 Basophils # 0.0 Nucleated Red Blood 0.0 Cells # Sodium Level 136 Potassium Level 4.0 Chloride Level 109 Carbon Dioxide Level 20 L Anion Gap 7 Blood Urea Nitrogen 25 H Creatinine 1.91 H Est Glomerular Filtrat Rate mL/min Glucose Level 121 Calcium Level 7.5 L Phosphorus Level 3.2 Magnesium Level 1.5 L Test 06/29/18 11:57 Bedside Glucose 161 Medications Medication Current Medications Lactulose (Enulose) 30 gm Q12 PO Last administered on 06/29/18 09:11; Admin Dose 30 GM; Start 06/24/18 at 21:00 Propranolol HCl (Inderal) 10 mg BID PO Last administered on 06/29/18 09:11; Admin Dose 10 MG; Start 06/24/18 at 21:00 Rifaximin (Xifaxan) 550 mg BID PO Last administered on 06/29/18 09:12; Admin Dose 550 MG; Start 06/24/18 at 21:00 Acetaminophen (Tylenol Tab) 650 mg Q6H PRN PO MILD PAIN(1-3)OR ELEVATED TEMP Last administered on 06/28/18 16:39; Admin Dose 650 MG; Start 06/24/18 at 21:00 Famotidine (Pepcid) 20 mg DAILY PO Last administered on 06/29/18 09:12; Admin Dose 20 MG; Start 06/26/18 at 09:00 Diagnostic Test (Pha) (Accu-Chek) 1 ea 02 XX ; Start 06/26/18 at 02:00 Insulin Aspart (Novolog Insulin Pen) NOVOLOG *MILD* ALGORITHM WITH MEALS BEDTIME SC Last administered on 06/29/18 12:00; Admin Dose 1 UNIT; Start at 13:30 Miscellaneous Information 1 ea NOTE XX ; Start 06/25/18 at 12:30 Glucose (Glutose) 15 gm Q15M PRN PO DECREASED GLUCOSE; Start 06/25/18 at 12:30 Glucose (Glutose) 22.5 gm Q15M PRN PO DECREASED GLUCOSE; Start 06/25/18 at 12:30 Dextrose (D50w Syringe) 25 ml Q15M PRN IV DECREASED GLUCOSE; Start 06/25/18 at 12:30 Dextrose (D50w Syringe) 50 ml Q15M PRN IV DECREASED GLUCOSE; Start 06/25/18 at 12:30 Glucagon (Glucagen) 1 mg Q15M PRN IM DECREASED GLUCOSE; Start 06/25/18 at 12:30 Glucose (Glutose) 15 gm Q15M PRN BUCCAL DECREASED GLUCOSE; Start 06/25/18 at 12:30 Fluconazole (Diflucan) 300 mg DAILY PO Last administered on 06/29/18 09:12; Admin Dose 300 MG; Start 06/28/18 at 09:00; Stop 07/01/18 at 08:59 Multivitamins Therapeutic (Theragran) 1 tab DAILY PO Last administered on 06/29/18at 09:11; Admin Dose 1 TAB; Start 06/28/18 at 14:00 GABRIELA ESPINO MD Jun 29, 2018 15:39
[2018-06-29 20:00] VITALS: BP 109/72; PULSE 71; RESP 18
[2018-06-30] MEDS: ACCU-CHEK XX SCH (02:00)
[2018-06-30 03:08] VITALS: BP 113/52; RESP 20
[2018-06-30 08:00] VITALS: BP 111/53; PULSE 84; RESP 18
[2018-06-30] MEDS: INSULIN ASPART [NOVOLOG] 3 ML PEN SC SCH ×4 (08:00→20:51)
[2018-06-30] MEDS ORDERED: FUROSEMIDE 20 MG TAB PO ONE (08:30)
[2018-06-30] MEDS: FAMOTIDINE 20 MG TAB PO SCH (08:39)
[2018-06-30] MEDS: FLUCONAZOLE 100 MG TAB PO SCH (08:39)
[2018-06-30] MEDS: MULTIVITAMINS THERAPEUTIC TAB PO SCH (08:39)
[2018-06-30] MEDS: RIFAXIMIN 550 MG TAB PO SCH ×2 (08:39→20:48)
[2018-06-30] MEDS: LACTULOSE 30ML CUP PO SCH ×2 (08:39→20:49)
[2018-06-30] MEDS: PROPRANOLOL 10 MG TAB PO SCH ×2 (08:41→20:48)
--- NOTE | 2018-06-30 11:48 | PN ---
Date/Time of Note Date/Time of Note DATE: 06/30/18 TIME: 11:48 Assessment/Plan VTE Prophylaxis Risk score ([facility]0 risk: 4 SCD applied (from [facility]): Yes Pharmacological prophylaxis: NA/contraindicated Pharm contraindication: low risk/ambulating Lines/Catheters IV C[facility] Type (from [facility] Saline Lock Assessment/Plan Hospital Course Hospital Course 1. Sepsis more likely secondary to urinary tract infection. 2. Altered level of consciousness secondary to history of liver cirrhosis, resolved Ammonia level is elevated today is 48. CT scan of the head is negative 3. Liver cirrhosis with thrombocytopenia 4. Mild macrocytic hyperchromic anemia with neutropenia 5. TRISTON, trending up today 1.87 from cr 1.67 on admission2/2 UTI. Last admission creatinine was up to 1.7>1.83 now trending up 6. Diabetes mellitus type 2, uncontrolled 7. Hypertension 8. Overweight 9. History of cataract 10. Depression 11. Hypokalemia, resolved 12. Hypocalcemia 13 BLE edema likely secondary to cirrhosis with low albumin UA is negative for proteinuria Plan -Restart low-dose Lasix 20 IV twice daily due to a KI -Will check CMP to check for albumin -Echo -Repeat UA - strict i a nd o, bladder scan -ammonia Levels improving -With PPI -With multivitamin -recheck HB Result Diagram: 06/29/18 0503 06/30/18 0611 Results 24hrs Laboratory Tests Test 06/29/18 11:57 06/29/18 17:39 06/29/18 21:14 06/30/18 02:04 Bedside Glucose 161 170 235 H 148 Test 06/30/18 06:11 06/30/18 08:01 Sodium Level 136 Potassium Level 4.3 Chloride Level 109 Carbon Dioxide Level 20 L Anion Gap 7 Blood Urea Nitrogen 24 H Creatinine 1.84 H Est Glomerular Filtrat Rate mL/min Glucose Level 126 Calcium Level 7.9 L Bedside Glucose 129 Subjective 24 Hr Interval Summary Free Text/Dictation Bilateral lateral lower extremity edema is worsening Exam/Review of Systems Exam Vitals Vital Signs Date Temp Pulse Resp B/P (MAP) Pulse Ox O2 O2 Flow FiO2 Time Delivery Rate 06/30/18 98.8 18 111/53 100 Room Air 08:00 (72) 06/30/18 84 08:00 Intake and Output 06/29/18 06/29/18 06/30/18 1515:00 23:00 07:00 IntakeIntake Total 610 ml 300 ml OutputOutput Total 150 ml 200 ml BalanceBalance 610 ml -150 ml 100 ml Exam Constitutional: alert, oriented Head: normocephalic Eyes: nl conjunctiva ENMT: nl external ears & nose Respiratory: clear to auscultation Cardiovascular: regular rate and rhythm Gastrointestinal: soft edema++ Results Results 24hrs Laboratory Tests Test 06/29/18 11:57 06/29/18 17:39 06/29/18 21:14 06/30/18 02:04 Bedside Glucose 161 170 235 H 148 Test 06/30/18 06:11 06/30/18 08:01 Sodium Level 136 Potassium Level 4.3 Chloride Level 109 Carbon Dioxide Level 20 L Anion Gap 7 Blood Urea Nitrogen 24 H Creatinine 1.84 H Est Glomerular Filtrat Rate mL/min Glucose Level 126 Calcium Level 7.9 L Bedside Glucose 129 Medications Medication Current Medications Lactulose (Enulose) 30 gm Q12 PO Last administered on 06/30/18 08:39; Admin Dose 30 GM; Start 06/24/18 at 21:00 Propranolol HCl (Inderal) 10 mg BID PO Last administered on 06/30/18at 08:41; Ad min Dose 10 MG; Start 06/24/18 at 21:00 Rifaximin (Xifaxan) 550 mg BID PO Last administered on 06/30/18 08:39; Admin Dose 550 MG; Start 06/24/18 at 21:00 Acetaminophen (Tylenol Tab) 650 mg Q6H PRN PO MILD PAIN(1-3)OR ELEVATED TEMP Last administered on 06/28/18at 16:39; Admin Dose 650 MG; Start 06/24/18 at 21:00 Famotidine (Pepcid) 20 mg DAILY PO Last administered on 06/30/18 08:39; Admin Dose 20 MG; Start 06/26/18 at 09:00 Diagnostic Test (Pha) (Accu-Chek) 1 ea 02 XX ; Start 06/26/18 at 02:00 Insulin Aspart (Novolog Insulin Pen) NOVOLOG *MILD* ALGORITHM WITH MEALS BEDTIME SC Last administered on 06/29/18at 21:17; Admin Dose 2 UNIT; Start 06/25/18 at 13:30 Miscellaneous Information 1 ea NOTE XX ; Start 06/25/18 at 12:30 Glucose (Glutose) 15 gm Q15M PRN PO DECREASED GLUCOSE; Start 06/25/18 at 12:30 Glucose (Glutose) 22.5 gm Q15M PRN PO DECREASED GLUCOSE; Start 06/25/18 at 12:30 Dextrose (D50w Syringe) 25 ml Q15M PRN IV DECREASED GLUCOSE; Start 06/25/18 at 12:30 Dextrose (D50w Syringe) 50 ml Q15M PRN IV DECREASED GLUCOSE; Start 06/25/18 at 12:30 Glucagon (Glucagen) 1 mg Q15M PRN IM DECREASED GLUCOSE; Start 06/25/18 at 12:30 Glucose (Glutose) 15 gm Q15M PRN BUCCAL DECREASED GLUCOSE; Start 06/25/18 at 12:30 Fluconazole (Diflucan) 300 mg DAILY PO Last administered on 06/30/18at 08:39; Admin Dose 300 MG; Start 06/28/18 at 09:00; Stop 07/01/18 at 08:59 Multivitamins Therapeutic (Theragran) 1 tab DAILY PO Last administered on 06/30/18at 08:39; Admin Dose 1 TAB; Start 06/28/18 at 14:00 GABRIELA ESPINO MD Jun 30, 2018 11:48
[2018-06-30] MEDS: FUROSEMIDE 20 MG INJ IV SCH ×2 (12:47→17:54)
[2018-06-30 14:00] VITALS: BP 118/56; PULSE 80; RESP 18
--- NOTE | 2018-06-30 16:27 | RADRPT ---
Echocardiogram Report Patient Name: ABRAN SAUNDERSPatient ID: [id number] : 1940 (77y 8m)Study Date: 06/30/2018 2:49:02 PM Gender: FAccession #: [id number] Tech: Obey Del Cid [facility] Location: [facility] Ref.Physician: GABRIELA ESPINO Height(Cm): BSA: Weight(Kg): Quality: Technically Difficult StudyAccount #: Procedures: Echocardiographic Report: Transthoracic echocardiogram with complete 2D, M-Mode, and doppler examination. Indications: Evaluate Left Ventricular function. Measurements: 2D/M Mode Measurement Value Normal Range LVIDd 2D 3.5 [ 3.8 - 5.2 ] cm LVIDs 2D 2.2 [ 2.2 - 3.5 ] cm IVSd 2D 1.3 [ 0.6 - 0.9 ] cm AoR Diam 2D 2.5 [ 2.3 - 3.1 ] cm LA Dimen 2D 3.5 [ 2.7 - 3.8 ] cm Findings: Left Ventricle: Normal left ventricular systolic function. Normal left ventricular cavity size. Mild concentric left ventricular hypertrophy. Ejection fraction is visually estimated at 60 %. Right Ventricle: Normal right ventricular size. Normal right ventricular systolic function. Left Atrium: The left atrium is normal in size. Right Atrium: The right atrium is normal in size. Mitral Valve: Mild mitral leaflet calcification. Mild mitral annular calcification. Trace mitral regurgitation. Aortic Valve: Aortic cusps appear mildly calcified. Tricuspid Valve: Normal appearance of the tricuspid valve. There is trace tricuspid regurgitation. Pulmonic Valve: Normal pulmonic valve appearance. Pericardium: Normal pericardium with no significant pericardial effusion. Aorta: Normal aortic root. IVC: Normal size and normal respiratory collapse consistent with normal right atrial pressure. Conclusions: Normal left ventricular systolic function. Normal left ventricular cavity size. Mild concentric left ventricular hypertrophy. Ejection fraction is visually estimated at 60 %. Mild mitral leaflet calcification. Mild mitral annular calcification. Trace mitral regurgitation. Normal appearance of the tricuspid valve. There is trace tricuspid regurgitation. Electronically Signed By: Jorge Medrano 2018-06-30 16:26:12 PDT
[2018-06-30 20:52] VITALS: BP 128/59; PULSE 66; RESP 20
[2018-07-01] MEDS: ACCU-CHEK XX SCH (02:58)
[2018-07-01] MEDS: FUROSEMIDE 20 MG INJ IV SCH ×2 (05:54→17:28)
[2018-07-01] MEDS: INSULIN ASPART [NOVOLOG] 3 ML PEN SC SCH ×4 (08:00→21:00)
[2018-07-01 08:49] VITALS: BP 105/53; PULSE 69; RESP 17
[2018-07-01] MEDS: FAMOTIDINE 20 MG TAB PO SCH (08:50)
[2018-07-01] MEDS: MULTIVITAMINS THERAPEUTIC TAB PO SCH (08:50)
[2018-07-01] MEDS: RIFAXIMIN 550 MG TAB PO SCH ×2 (08:51→21:40)
[2018-07-01] MEDS: LACTULOSE 30ML CUP PO SCH ×2 (08:52→21:40)
[2018-07-01] MEDS: PROPRANOLOL 10 MG TAB PO SCH ×2 (08:52→21:41)
--- NOTE | 2018-07-01 09:30 | PN ---
Date/Time of Note Date/Time of Note DATE: 07/01/18 TIME: 09:30 Assessment/Plan VTE Prophylaxis Risk score (from Ns)>0 risk: 5 SCD applied (from Ns): Yes Pharmacological prophylaxis: NA/contraindicated Pharm contraindication: low risk/ambulating Lines/Catheters IV Catheter Type (from [facility]): Saline Lock Assessment/Plan Hospital Course Hospital Course 1. Sepsis more likely secondary to urinary tract infection. resolved 2. Altered level of consciousness secondary to history of liver cirrhosis, resolved Ammonia level is elevated today is 48. CT scan of the head is negative 3. Liver cirrhosis with thrombocytopenia 4. Mild macrocytic hyperchromic anemia with neutropenia 5. TRISTON, trending up today 1.87 from cr 1.67 on admission2/2 UTI. Last admission creatinine was up to 1.7>1.83 now trending up now down to 1.5 6. Diabetes mellitus type 2, uncontrolled 7. Hypertension 8. Overweight 9. History of cataract 10. Depression 11. Hypokalemia, resolved 12. Hypocalcemia 13 BLE edema likely secondary to cirrhosis with low albumin UA is negative for proteinuria Plan -cw Lasix 20 IV twice daily , at least 1-1.5 L negative - 1 unit PRBC today -fluid Restriction -Repeat UA neg - strict i a nd o, bladder scan -ammonia Levels improving -With PPI -With multivitamin - Patient wants to go home daughter receiving to go to rehab son going saying to go home not sure at this point, if patient only wants to go home will do DC planning to home soon Result Diagram: 07/01/18 0548 07/01/18 0548 Results 24hrs Laboratory Tests Test 06/30/18 12:03 06/30/18 12:11 06/30/18 17:25 06/30/18 20:41 Urine Color YELLOW Urine Clarity CLEAR Urine pH 6.0 Urine Specific 1.004 [place] Urine Ketones NEGATIVE Urine Nitrite NEGATIVE Urine Bilirubin NEGATIVE Urine Urobilinogen NEGATIVE Urine Leukocyte NEGATIVE Esterase Urine Microscopic 1 RBC Urine Microscopic 1 WBC Urine Squamous FEW Epithelial Cells Urine Bacteria FEW A Urine Hemoglobin 1+ H Urine Glucose NEGATIVE Urine Total Protein NEGATIVE Bedside Glucose 207 213 219 Test 07/01/18 02:54 07/01/18 05:48 07/01/18 08:10 Bedside Glucose 174 137 White Blood Count 3.7 L Red Blood Count 2.06 L Hemoglobin 7.0 L Hematocrit 21.1 L Mean Corpuscular 102.4 H Volume Mean Corpuscular 34.0 H Hemoglobin Mean Corpuscular 33.2 Hemoglobin Concent Red Cell 14.9 H Distribution Width Platelet Count 69 L Mean Platelet Volume 11.4 H Immature 0.500 H Granulocytes % Neutrophils % 36.8 L Lymphocytes % 47.2 Monocytes % 13.1 H Eosinophils % 1.9 Basophils % 0.5 Nucleated Red Blood 0.0 Cells % Immature 0.020 Granulocytes # Neutrophils # 1.4 L Lymphocytes # 1.8 Monocytes # 0.5 Eosinophils # 0.1 Basophils # 0.0 Nucleated Red Blood 0.0 Cells # Sodium Level 139 Potassium Level 3.8 Chloride Level 113 H Carbon Dioxide Level 20 L Anion Gap 6 Blood Urea Nitrogen 23 H Creatinine 1.59 H Est Glomerular Filtrat Rate mL/min Glucose Level 149 Calcium Level 8.0 L Total Bilirubin 0.8 Direct Bilirubin 0.00 Indirect Bilirubin 0.8 Aspartate Amino 60 H Transf (AST/SGOT) Alanine 28 Aminotransferase (AL T/SGPT) Alkaline Phosphatase 118 Total Protein 5.1 L Albumin 1.7 L Globulin 3.40 H Albumin/Globulin 0.50 Ratio Subjective 24 Hr Interval Summary Free Text/Dictation Globin down to 7 today however no evidence of any bleeding bLateral lower extremity edema Exam/Review of Systems Exam Vitals Vital Signs Date Temp Pulse Resp B/P (MAP) Pulse Ox O2 O2 Flow FiO2 Time Delivery Rate 07/01/18 98.3 69 17 105/53 99 08:49 (70) 06/30/18 Room Air 14:00 Intake and Output 06/30/18 06/30/18 07/01/18 1414:59 22:59 06:59 IntakeIntake Total 720 ml 450 ml OutputOutput Total 250 ml 1050 ml 1150 ml BalanceBalance -250 ml -330 ml -700 ml Exam Constitutional: alert, oriented Head: normocephalic Eyes: nl conjunctiva ENMT: nl external ears & nose Respiratory: clear to auscultation Cardiovascular: regular rate and rhythm Gastrointestinal: soft edema++ Results Results 24hrs Laboratory Tests Test 06/30/18 12:03 06/30/18 12:11 06/30/18 17:25 06/30/18 20:41 Urine Color YELLOW Urine Clarity CLEAR Urine pH 6.0 Urine Specific 1.004 [place] Urine Ketones NEGATIVE Urine Nitrite NEGATIVE Urine Bilirubin NEGATIVE Urine Urobilinogen NEGATIVE Urine Leukocyte NEGATIVE Esterase Urine Microscopic 1 RBC Urine Microscopic 1 WBC Urine Squamous FEW Epithelial Cells Urine Bacteria FEW A Urine Hemoglobin 1+ H Urine Glucose NEGATIVE Urine Total Protein NEGATIVE Bedside Glucose 207 213 219 Test 07/01/18 02:54 07/01/18 05:48 07/01/18 08:10 Bedside Glucose 174 137 White Blood Count 3.7 L Red Blood Count 2.06 L Hemoglobin 7.0 L Hematocrit 21.1 L Mean Corpuscular 102.4 H Volume Mean Corpuscular 34.0 H Hemoglobin Mean Corpuscular 33.2 Hemoglobin Concent Red Cell 14.9 H Distribution Width Platelet Count 69 L Mean Platelet Volume 11.4 H Immature 0.500 H Granulocytes % Neutrophils % 36.8 L Lymphocytes % 47.2 Monocytes % 13.1 H Eosinophils % 1.9 Basophils % 0.5 Nucleated Red Blood 0.0 Cells % Immature 0.020 Granulocytes # Neutrophils # 1.4 L Lymphocytes # 1.8 Monocytes # 0.5 Eosinophils # 0.1 Basophils # 0.0 Nucleated Red Blood 0.0 Cells # Sodium Level 139 Potassium Level 3.8 Chloride Level 113 H Carbon Dioxide Level 20 L Anion Gap 6 Blood Urea Nitrogen 23 H Creatinine 1.59 H Est Glomerular Filtrat Rate mL/min Glucose Level 149 Calcium Level 8.0 L Total Bilirubin 0.8 Direct Bilirubin 0.00 Indirect Bilirubin 0.8 Aspartate Amino 60 H Transf (AST/SGOT) Alanine 28 Aminotransferase (AL T/SGPT) Alkaline Phosphatase 118 Total Protein 5.1 L Albumin 1.7 L Globulin 3.40 H Albumin/Globulin 0.50 Ratio Medications Medication Current Medications Lactulose (Enulose) 30 gm Q12 PO Last administered on 07/01/18at 08:52; Admin Dose 30 GM; Start 06/24/18 at 21:00 Propranolol HCl (Inderal) 10 mg BID PO Last administered on 06/30/18 20:48; Admin Dose 10 MG; Start 06/24/18 at 21:00 Rifaximin (Xifaxan) 550 mg BID PO Last administered on 07/01/18 08:51; Admin Dose 550 MG; Start 06/24/18 at 21:00 Acetaminophen (Tylenol Tab) 650 mg Q6H PRN PO MILD PAIN(1-3)OR ELEVATED TEMP Last administered on 3/18/19at 16:39; Admin Dose 650 MG; Start 06/24/18 at 21:00 Famotidine (Pepcid) 20 mg DAILY PO Last administered on 07/01/18at 08:50; Admin Dose 20 MG; Start 06/26/18 at 09:00 Diagnostic Test (Pha) (Accu-Chek) 1 ea 02 XX Last administered on 07/01/18at 02:58; Admin Dose 1 EA; Start 06/26/18 at 02:00 Insulin Aspart (Novolog Insulin Pen) NOVOLOG *MILD* ALGORITHM WITH MEALS BEDTIME SC Last administered on 06/30/18at 20:51; Admin Dose 1 UNIT; Start 06/25/18 at 13:30 Miscellaneous Information 1 ea NOTE XX ; Start 06/25/18 at 12:30 Glucose (Glutose) 15 gm Q15M PRN PO DECREASED GLUCOSE; Start 06/25/18 at 12:30 Glucose (Glutose) 22.5 gm Q15M PRN PO DECREASED GLUCOSE; Start 06/25/18 at 12:30 Dextrose (D50w Syringe) 25 ml Q15M PRN IV DECREASED GLUCOSE; Start 06/25/18 at 12:30 Dextrose (D50w Syringe) 50 ml Q15M PRN IV DECREASED GLUCOSE; Start 06/25/18 at 12:30 Glucagon (Glucagen) 1 mg Q15M PRN IM DECREASED GLUCOSE; Start 06/25/18 at 12:30 Glucose (Glutose) 15 gm Q15M PRN BUCCAL DECREASED GLUCOSE; Start 06/25/18 at 12:30 Multivitamins Therapeutic (Theragran) 1 tab DAILY PO Last administered on 07/01/18at 08:50; Admin Dose 1 TAB; Start 06/28/18 at 14:00 Furosemide (Lasix) 20 mg BID DIURETICS IV Last administered on 07/01/18at 05:54; Admin Dose 20 MG; Start 06/30/18 at 12:00 GABRIELA ESPINO MD Jul 01, 2018 09:30
[2018-07-01 14:00] VITALS: BP 123/60; PULSE 72; RESP 18
[2018-07-01 17:29] VITALS: BP 128/60
[2018-07-01 20:00] VITALS: BP 138/61; PULSE 69; RESP 18
[2018-07-02 02:00] VITALS: BP 123/57; PULSE 72; RESP 17
[2018-07-02] MEDS: ACCU-CHEK XX SCH (02:18)
[2018-07-02] MEDS: FUROSEMIDE 20 MG INJ IV SCH ×2 (05:24→17:36)
[2018-07-02 08:00] VITALS: BP 123/60; PULSE 82; RESP 18
[2018-07-02] MEDS: INSULIN ASPART [NOVOLOG] 3 ML PEN SC SCH ×3 (08:00→17:34)
[2018-07-02] MEDS: PROPRANOLOL 10 MG TAB PO SCH (08:44)
[2018-07-02] MEDS: RIFAXIMIN 550 MG TAB PO SCH (08:45)
[2018-07-02] MEDS: MULTIVITAMINS THERAPEUTIC TAB PO SCH (08:45)
[2018-07-02] MEDS: FAMOTIDINE 20 MG TAB PO SCH (08:45)
[2018-07-02] MEDS: LACTULOSE 30ML CUP PO SCH (08:47)
--- NOTE | 2018-07-02 09:35 | PDOCDIS ---
Discharge Instructions CONDITION [id number] Patient Condition: [id number] Stable ACTIVITY: [id number] Activity Restrictions: [id number] Slowly Increase Activity Rest between Activity Avoid heavy lifting FOLLOW UP/APPOINTMENTS Follow-up Plan PCP 1 week YOKO VEGA Jul 02, 2018 09:35
--- NOTE | 2018-07-02 09:35 | DS ---
Date/Time of Note Date/Time of Note DATE: 07/02/18 TIME: 09:34 Discharge Summary Admission/Discharge Info Admit Date/Time Jun 24, 2018 at 16:54 Discharge Date/Time Discharge Diagnosis UTI, ALOC Patient Condition: Stable Hospital Course Patient is a 77-year-old female with hypertension and history of liver cirrhosis presented to the emergency room with dizziness. She had dizziness and chills that started yesterday. Reported fevers, weakness, urine retention and trouble speaking. She was in the hospital with metabolic encephalopathy 1 months ago May 2018. 1. Sepsis more likely secondary to urinary tract infection. Lactic acid is elevated . Urinalysis is abnormal with positive leukocyte esterase. chest x- ray is negative 2. Altered level of consciousness secondary to history of liver cirrhosis, resolved Ammonia level is elevated today is 48. CT scan of the head is negative 3. Liver cirrhosis with thrombocytopenia 4. Mild macrocytic hyperchromic anemia with neutropenia 5. TRISTON, trending up today 1.87 from cr 1.67 on admission2/2 UTI. Last admission creatinine was up to 1.7 6. Diabetes mellitus type 2, uncontrolled 7. Hypertension 8. Overweight 9. History of cataract 10. Depression 11. Hypokalemia, resolved 12. Hypocalcemia During hospitalization pt was on IV antibiotics to treat her UTI. Pt home medication was restarted, except Lasix and Losartan -HCTZ. She was on fall precaution due to her ALOC, second hospitalization day pt was alert and oriented. CT scan of the head is negative. for 3-4 days lower edema increased and patient was positive for 2.5 L of fluid. we place pt on fluid restrictions and had strict I and O, bladder scanner was utilized. We monitor patient creatinine, when creatinine was trending down we restarted Lasix 20 IV twice daily. Pt had increased diureses at least 1-1.5 L negative. We monitor Ammonia level, it is improved. We repeat UA before discharge, it is negative. Pt hemoglobin was low 7,6, prior to admission it was above 8 due to 1 unit of blood transfusion. We controlled pt BS with accucheck and hypoglycemic control. To increase immunity multivitamin by mouth was ordered. discharge ds: 1. Sepsis secondary to urinary tract infection. 2. Altered level of consciousness secondary to increased ammonia and liver cirrhosis, resolved Ammonia level is elevated today is 48. 3. Liver cirrhosis with thrombocytopenia 4. Mild macrocytic hyperchromic anemia with neutropenia 5. TRISTON, 2/2 UTI 6. Diabetes mellitus type 2, uncontrolled 7. Hypertension 8. Overweight 9. History of cataract 10. Depression 11. Hypokalemia, resolved in prior to dc 12. Hypocalcemia, same Home Meds Active Scripts Hydralazine Hcl* (Hydralazine Hcl*) 10 Mg Tablet, 10 MG PO BID for prn SBP abov e 160, #60 TAB Prov:YOKO VEGA 07/02/18 Rifaximin* (Xifaxan*) 550 Mg Tablet, 550 MG PO BID for 30 Days, TAB Prov:GABRIELA ESPINO MD 06/02/18 Reported Medications Lactulose* (Lactulose*) 10 Gm/15 Ml Solution, 30 GM PO Q12, ML 06/24/18 [omeoprazole] No Conflict Check, 20 MG PO BID PRN for NAUSEA when taking metronidazole 06/24/18 Furosemide* (Furosemide*) 40 Mg Tablet, 40 MG PO DAILY, TAB 06/24/18 Propranolol Hcl* (Propranolol Hcl*) 10 Mg Tablet, 10 MG PO BID, TAB 04/01/18 Discontinued Reported Medications Metronidazole* (Flagyl*) 500 Mg Tablet, 500 MG PO BID, TAB 06/24/18 Losartan-Hydrochlorothiazide (Losartan-HCTZ) 100-12.5 Mg Tab, 1 TAB PO DAILY, TAB 06/24/18 Follow-up Plan PCP 1 week Primary Care Provider Not On Staff Doctor Time spent on discharge: < 30 minutes Pending Labs Laboratory Tests Test 07/01/18 11:50 07/01/18 17:23 07/01/18 21:39 07/02/18 06:12 Bedside 196 221 117 Glucose mg/dL (70-220) mg/dL (70-220) mg/dL (70-220) White Blood 4.1 Count 10^3/ul (4.8-1 0.8) Red Blood 2.56 Count 10^6/ul (4.20- 5.40) Hemoglobin 8.7 g/dl (12.0-16. 0) Hematocrit 26.1 % (37.0-47.0) Mean 102.0 Corpuscular fl (82.0-101.0 Volume ) Mean 34.0 Corpuscular pg (29.0-33.0) Hemoglobin Mean 33.3 Corpuscular g/dl (32.0-37. Hemoglobin Conc 0) ent Red Cell 16.3 Distribution % (11.5-14.5) Width Platelet Count 59 10^3/UL (140-4 15) Mean Platelet 11.5 Volume fl (7.4-10.4) Immature 0.500 Granulocytes % % (0.001-0.429 ) Neutrophils % 34.0 % (39.0-77.0) Lymphocytes % 50.0 % (15.0-51.0) Monocytes % 11.8 % (0.0-11.0) Eosinophils % 3.2 % (0.0-7.0) Basophils % 0.5 % (0.0-2.0) Nucleated Red 0.0 Blood Cells % /100WBC (0.0-0 .0) Immature 0.020 Granulocytes # 10^3/ul (0.0-0 .031) Neutrophils # 1.4 10^3/ul (1.6-7 .5) Lymphocytes # 2.0 10^3/ul (0.8-2 .9) Monocytes # 0.5 10^3/ul (0.3-0 .9) Eosinophils # 0.1 10^3/ul (0.0-0 .5) Basophils # 0.0 10^3/ul (0.0-0 .1) Nucleated Red 0.0 Blood Cells # 10^3/ul (0.0-0 .0) Sodium Level 140 mmol/L (135-14 4) Potassium 3.7 Level mmol/L (3.5-5. 1) Chloride Level 109 mmol/L (97-110 ) Carbon Dioxide 23 Level mmol/L (21-31) Anion Gap 8 (5-13) Blood Urea 21 Nitrogen mg/dl (7-20) Creatinine 1.39 mg/dl (0.44-1. 00) Est Glomerular mL/min (>60) Filtrat Rate mL/min Glucose Level 108 mg/dl (70-220) Calcium Level 8.0 mg/dl (8.4-10. 2) Phosphorus 3.7 Level mg/dl (2.5-4.9 ) Magnesium 1.3 Level mg/dl (1.7-2.5 ) Test 07/02/18 08:10 Bedside 100 Glucose mg/dL (70-220) MEZENTSEVA,YOKO Jul 02, 2018 09:34
[2018-07-02] MEDS ORDERED: HYDR-3670 PO (09:38)
[2018-07-02] MEDS ORDERED: MAGNESIUM CHLORIDE (SR) 64 MG TAB PO ONE (11:00)
[2018-07-02 14:00] VITALS: BP 128/64; PULSE 84; RESP 18
[2018-07-02 17:32] VITALS: BP 135/65; PULSE 70
== END 2018-07-02 18:25 | disposition home or self-care (01) | DRG 872 ==
LOC: E/R 14:02 → PP2 16:54
PROVIDERS: ADMIT Internal Medicine; ATTEND Internal Medicine
DX: A41.9 Sepsis, unspecified organism (principal); N39.0 Urinary tract infection, site not specified; N17.9 Acute kidney failure, unspecified; K74.60 Unspecified cirrhosis of liver; E11.9 Type 2 diabetes mellitus without complications; F32.9 Major depressive disorder, single episode, unspecified; E87.6 Hypokalemia; D69.59 Other secondary thrombocytopenia; R41.82 Altered mental status, unspecified; D53.9 Nutritional anemia, unspecified; I10 Essential (primary) hypertension; E83.51 Hypocalcemia; D70.9 Neutropenia, unspecified
CPT/HCPCS: 36415; 36430; 70450; 71045; 80048; 80053; 80061; 80307; 81001; 82140; 82962; 83036; 83605; 83735; 84100; 84484; 85025; 85610; 85730; 86850; 86900; 86901; 86920; 87040; 87086; 92610; 93005; 93308; 96365; 96375; C9113; J1650; J1815; J1940; J1956; J3370; J3475; J7030; P9016

== ENCOUNTER 2018-09-06 08:26 | Inpatient (IN) | payer BC ==
[~2018-09-06] VITALS: Ht 157.5 cm; Wt 72.7 kg
[~2018-09-06 08:26] MED LIST changes: -ATR1OO35 BOTH EYES; -COMBIG5 RIGHT EYE; +FURO40TA4 PO; +HYDR-3670 PO; -IBUP-1561 PO; +OMEPRAZOLE PO; -PRED5DRO20 RIGHT EYE
--- NOTE | 2018-09-06 09:11 | ERD ---
ER Documentation Chief Complaint Chief Complaint confused for wks weakness since yesterday, not following directions HPI This is a 77-year-old female with known history of liver cirrhosis and no history of alcohol abuse. Over the past 48 hours her daughters indicate that she has become more confused. She has refused to eat. Therefore they have not been able to administer her lactulose. She has had a history of metabolic encep halopathy requiring admission to the hospital in the past. She also has a history of type 2 diabetes mellitus on metformin hypertension depression and at baseline her daughter states that she is alert to person place but not to time. She had no recent fever shaking or chills. She has not had any frequent urination according to the family. She has not complained of chest pain. She has not complained of a headache. There is been no recent trauma or falls according to the family. She had no hemoptysis no hematemesis no melanotic stools. ROS All systems reviewed and are negative except as per history of present illness. Medications Home Meds Reported Medications Rifaximin* (Xifaxan*) 550 Mg Tablet, 550 MG PO BID, TAB 09/06/18 Hydralazine Hcl* (Hydralazine Hcl*) 10 Mg Tablet, 10 MG PO BID PRN for ELEVATED BLOOD PRESSURE, #120 TAB SBP ABOVE 160 09/06/18 Sucralfate* (Carafate*) 1 Gm Tab, 1 GM PO BID, TAB 09/06/18 Calcium Carbonate/Vitamin D3 (OYSTER SHELL 500 MG + VIT D TB) 1 Each Tablet, 1 EACH PO DAILY, TAB 09/06/18 Cyanocobalamin* (Vitamin B12*) 500 Mcg Tab, 1000 MCG PO DAILY, TAB 09/06/18 Magnesium Oxide* (Mag-Oxide*) 400 Mg Tablet, 400 MG PO BID, TAB 09/06/18 Spironolactone* (Spironolactone*) 100 Mg Tablet, 100 MG PO DAILY, TAB 09/06/18 Propranolol Hcl* (Propranolol Hcl*) 10 Mg Tablet, 10 MG PO BID, TAB 09/06/18 Lactulose* (Lactulose*) 10 Gm/15 Ml Solution, 30 GM PO Q12, ML 09/06/18 Metformin Hcl* (Metformin Hcl*) 500 Mg Tablet, 250 MG PO WITH BREAKFAST DINNE, #60 TAB 09/06/18 Discontinued Reported Medications Lactulose* (Lactulose*) 10 Gm/15 Ml Solution, 30 GM PO Q12, ML 06/24/18 [omeoprazole] No Conflict Check, 20 MG PO BID PRN for NAUSEA when taking metronidazole 06/24/18 Furosemide* (Furosemide*) 40 Mg Tablet, 40 MG PO DAILY, TAB 06/24/18 Propranolol Hcl* (Propranolol Hcl*) 10 Mg Tablet, 10 MG PO BID, TAB 04/01/18 Discontinued Scripts Hydralazine Hcl* (Hydralazine Hcl*) 10 Mg Tablet, 10 MG PO BID for prn SBP above 160, #60 TAB Prov:YOKO VEGA 07/02/18 Rifaximin* (Xifaxan*) 550 Mg Tablet, 550 MG PO BID for 30 Days, TAB Prov:GABRIELA ESPINO MD 06/02/18 Allergies Allergies: Coded Allergies: Penicillins (Verified Allergy, Severe, TONGUE TURNED BLACK, SORETHROAT, 09/06/18) PMhx/Soc History of Surgery: No Anesthesia Reaction: No Hx Neurological Disorder: Yes (confusion) Hx Respiratory Disorders: No Hx Cardiac Disorders: Yes (hypertension) Hx Psychiatric Problems: Yes (Depression) Hx Miscellaneous Medical Probl: No Hx Alcohol Use: No Hx Substance Use: No Hx Tobacco Use: No Physical Exam Vitals Vital Signs Date Temp Pulse Resp B/P (MAP) Pulse Ox O2 O2 Flow FiO2 Time Delivery Rate 09/06/18 98.8 64 18 123/60 99 08:29 (81) Physical Exam Constitutional:Well-developed. Well-nourished. HEENT:Normocephalic. Atraumatic.Pupils were equal round reactive to light. Dry mucous membranes.No tonsillar exudates. Mild scleral icterus Neck: No nuchal rigidity. No lymphadenopathy. No posterior cervical spine tenderness or step-offs. Respiratory: Not using accessory muscles of respiration.Lungs were clear to auscultation bilaterally. No rhonchi. No rales. No wheezing. Cardiovascular: Regular rate regular rhythm.No murmurs. No rubs were appreciated.S1, S2 normal. Distal pulses are palpable 2+ bilaterally. GI: Abdomen was soft. Nontender. Hepatomegaly. Non Distended. No pulsatile abdominal masses or bruits. No rebound. No guarding. Bowel sounds were present and normal. Muscle skeletal: Full range of motion of both the upper and lower extremities bilaterally.Normal muscle tone.No assymetrical calf tenderness or swelling. Skin: No petechia, no purpura. No lesions on the palms or the soles of the feet. No maculopapular rash. NEURO: Patient was alert, awake, orientated to person but not to place or time.No facial droop. Gait observed and normal with no ataxia but requires assistance and has slow steady gait.Speech had regular rate and rhythm. No focal neurological deficits. Result Diagram: 09/06/18 1028 09/06/18 1028 Results 24 hrs Laboratory Tests Test 09/06/18 09:40 09/06/18 10:18 09/06/18 10:27 09/06/18 10:28 Urine Color YELLOW Urine Clarity CLEAR Urine pH 6.0 Urine Specific 1.009 [place] Urine Ketones NEGATIVE mg/dL Urine Nitrite NEGATIVE mg/dL Urine Bilirubin NEGATIVE mg/dL Urine NEGATIVE mg/dL Urobilinogen Urine Leukocyte NEGATIVE Lisette/ul Esterase Urine Hemoglobin NEGATIVE mg/dL Urine Glucose NEGATIVE mg/dL Urine Total NEGATIVE mg/dl Protein Bedside Glucose 121 mg/dL Prothrombin Time 21.3 Sec Prothrombin Time 1.7 Ratio INR International 1.84 Normalized Ratio Activated 36.1 Sec Partial Thrombopl ast Time Hemoglobin A1c 5.3 % White Blood Count 4.2 10^3/ul Red Blood Count 2.63 10^6/ul Hemoglobin 8.8 g/dl Hematocrit 26.6 % Mean Corpuscular 101.1 fl Volume Mean Corpuscular 33.5 pg Hemoglobin Mean Corpuscular 33.1 g/dl Hemoglobin Concen t Red Cell 15.9 % Distribution Width Platelet Count 85 10^3/UL Mean Platelet 11.5 fl Volume Immature 0.200 % Granulocytes % Neutrophils % 40.9 % Lymphocytes % 45.6 % Monocytes % 9.0 % Eosinophils % 3.8 % Basophils % 0.5 % Nucleated Red 0.0 /100WBC Blood Cells % Immature 0.010 10^3/ul Granulocytes # Neutrophils # 1.7 10^3/ul Lymphocytes # 1.9 10^3/ul Monocytes # 0.4 10^3/ul Eosinophils # 0.2 10^3/ul Basophils # 0.0 10^3/ul Nucleated Red 0.0 10^3/ul Blood Cells # Sodium Level 139 mmol/L Potassium Level 5.2 mmol/L Chloride Level 112 mmol/L Carbon Dioxide 21 mmol/L Level Anion Gap 6 Blood Urea 11 mg/dl Nitrogen Creatinine 0.92 mg/dl Est Glomerular mL/min Filtrat Rate mL/min Glucose Level 124 mg/dl Calcium Level 9.1 mg/dl Total Bilirubin 2.1 mg/dl Direct Bilirubin 0.00 mg/dl Indirect 2.1 mg/dl Bilirubin Aspartate Amino 43 IU/L Transf (AST/SGOT) Alanine 33 IU/L Aminotransferase (ALT/SGPT) Alkaline 124 IU/L Phosphatase Ammonia 47 umol/l Creatine Kinase 45 IU/L Creatine Kinase 1.5 Index Creatinine Kinase 0.69 ng/ml MB (Mass) Troponin I < 0.012 ng/ml Total Protein 7.1 g/dl Albumin 2.4 g/dl Globulin 4.70 g/dl Albumin/Globulin 0.51 Ratio Current Medications Medications Dose Sig/Young Start Time Status Last (Trade) Ordered Route PRN Stop Time Admin Dose Reason Admin Lactulose 20 gm ONCE ONCE 09/06/18 DC 09/06/18 (Enulose) PO 12:00 12:01 09/06/18 12:01 Procedures/MDM The patient presented to the emergency department with an acute and persistent change in their mental status. The differential diagnosis is diverse however reversible causes such as hypoglycemia, opiate overdose, thiamine deficiency were immediately considered. The patient was placed on a media monitor, continuous pulse oximetry and IV access was established. The patients airway was secure however hypoxic events such as anemia, shock, or severe pulmonary disease were all considered as etiologies in this patients presentation. Circulation assessed with good cap refill and did not require fluids or pressure support. Finger stick for rapid glucose determined to be normal. I obtained a CT scan the patient's head which was reviewed with the radiologist myself and indicate the followin. Negative for intracranial hemorrhage or other acute process. 2. Generalized volume loss, atherosclerosis, moderate - advanced chronic small vessel ischemic changes. 3. Chronic opacification of the left maxillary sinus. Chest radiograph showed atherosclerosis but no infiltrates no pneumothorax no pleural effusion 12 Lead EKG tracing ordered and reviewed by myself showed: Normal sinus rhythm of 63 bpm and no arrhythmia. OH interval normal. QRS duration normal. No ST segment elevation No ST segment depression. No changes consistent with acute ischemia. The patient's ammonia level was elevated. I did feel her symptoms result of hepatic encephalopathy. The patient's potassium was slightly elevated. She was treated for hyperkalemia. I did feel the patient required admission due to her persistent altered mental status and she will be admitted to the panel physician Dr. Gonzalez as her PCP is Dr. Cortez who is currently away. Departure Diagnosis: Primary Impression: Hepatic encephalopathy Additional Impression: Hyperkalemia Condition: Serious CHARLES BLOUNT MD September 06, 2018 09:11
[2018-09-06] MEDS ORDERED: METF500T24 PO (10:07)
[2018-09-06] MEDS ORDERED: LACT10SO5 PO (10:07)
[2018-09-06] MEDS ORDERED: PROP10TA6 PO (10:08)
[2018-09-06] MEDS ORDERED: SPIR100T4 PO (10:08)
[2018-09-06] MEDS ORDERED: MAGN400T27 PO (10:08)
[2018-09-06] MEDS ORDERED: CYAN500T46 PO (10:09)
[2018-09-06] MEDS ORDERED: CALC1TAB93 PO (10:09)
[2018-09-06] MEDS ORDERED: SUCR1TAB56 PO (10:10)
[2018-09-06] MEDS ORDERED: RIFA550T4 PO (10:11)
[2018-09-06] MEDS ORDERED: HYDR-3670 PO (10:11)
[2018-09-06] MEDS ORDERED: LACTULOSE 30ML CUP PO ONE (12:00)
[2018-09-06] MEDS ORDERED: NA BICARBONATE 8.4% 50 ML SYG IV STA (12:54)
[2018-09-06] MEDS ORDERED: CA CHLORIDE 10% 10 ML SYRINGE IV STA (12:54)
[2018-09-06] MEDS ORDERED: ACETAMINOPHEN 325 MG TAB PO PRN (13:00)
[2018-09-06] MEDS ORDERED: ONDANSETRON 4 MG INJ IV PRN ×2 (13:00→15:30)
--- NOTE | 2018-09-06 14:39 | HP ---
Date/Time of Note Date/Time of Note DATE: 09/06/18 TIME: 14:39 Assessment/Plan VTE Prophylaxis Pharmacological prophylaxis: NA/contraindicated Pharm contraindication: thrombocytopenia Lines/Catheters IV C[facility]ter Type ([facility] Saline Lock Assessment/Plan Hospital Course 77-year-old female with comorbidities including cirrhosis, hypertension, diabetes, and depression who was brought in by family members because of increasing confusion and poor oral intake and will be admitted to inpatient setting for further treatment and evaluation. 1. Acute encephalopathy. -Most probably toxic metabolic secondary to underlying hepatic cirrhosis. -Resume oral lactulose as tolerated. -If unable to tolerate oral intake, give lactulose as enema. -Resume Xifaxan. -Speech therapy evaluation. 2. Hyperkalemia. -Most probably secondary to underlying aldosterone antagonist use. -Hold aldosterone antagonist -Status post sodium bicarbonate and calcium chloride IV in the emergency room. 3. Liver cirrhosis. -Unknown etiology. -Resume lactulose and rifaximin. -Hold aldosterone antagonist because of underlying hyperkalemia. -Hold loop diuretics because of underlying dehydration. 4. Hypertension. -Continue the patient on PRN antihypertensives for high blood pressure readings. 5. Diabetes mellitus type 2. -Hemoglobin A1c 5.3. -Monitor glycemic trends. Plan: The patient will be admitted to inpatient setting. The patient will be kept n.p.o. except for medications. The patient will be started on DVT prophylaxis (bilateral SCDs). The patient will remain a full code. The rest of the patient's management will be based on the clinical course and the results of diagnostic studies. Based on the patient's clinical presentation, she most probably requires at least 2 midnights' stay for further management and evaluation of her clinical presentation. The patient was seen in collaboration with Dr. Gonzalez. Result Diagram: 09/06/18 1028 09/06/18 1028 Results 24hrs Laboratory Tests Test 09/06/18 09:40 09/06/18 10:18 09/06/18 10:27 09/06/18 10:28 Urine Color YELLOW Urine Clarity CLEAR Urine pH 6.0 Urine Specific 1.009 [place] Urine Ketones NEGATIVE Urine Nitrite NEGATIVE Urine Bilirubin NEGATIVE Urine Urobilinogen NEGATIVE Urine Leukocyte NEGATIVE Esterase Urine Hemoglobin NEGATIVE Urine Glucose NEGATIVE Urine Total Protein NEGATIVE Bedside Glucose 121 Prothrombin Time 21.3 H Prothrombin Time 1.7 Ratio INR International 1.84 Normalized Ratio Activated 36.1 H Partial Thromboplast Time Hemoglobin A1c 5.3 White Blood Count 4.2 L Red Blood Count 2.63 L Hemoglobin 8.8 L Hematocrit 26.6 L Mean Corpuscular 101.1 H Volume Mean Corpuscular 33.5 H Hemoglobin Mean Corpuscular 33.1 Hemoglobin Concent Red Cell 15.9 H Distribution Width Platelet Count 85 #L Mean Platelet Volume 11.5 H Immature 0.200 Granulocytes % Neutrophils % 40.9 Lymphocytes % 45.6 Monocytes % 9.0 Eosinophils % 3.8 Basophils % 0.5 Nucleated Red Blood 0.0 Cells % Immature 0.010 Granulocytes # Neutrophils # 1.7 Lymphocytes # 1.9 Monocytes # 0.4 Eosinophils # 0.2 Basophils # 0.0 Nucleated Red Blood 0.0 Cells # Sodium Level 139 Potassium Level 5.2 H Chloride Level 112 H Carbon Dioxide Level 21 Anion Gap 6 Blood Urea Nitrogen 11 Creatinine 0.92 Est Glomerular Filtrat Rate mL/min Glucose Level 124 Calcium Level 9.1 Total Bilirubin 2.1 H Direct Bilirubin 0.00 Indirect Bilirubin 2.1 H Aspartate Amino 43 Transf (AST/SGOT) Alanine 33 Aminotransferase (AL T/SGPT) Alkaline Phosphatase 124 H Ammonia 47 H Creatine Kinase 45 Creatine Kinase 1.5 Index Creatinine Kinase MB 0.69 (Mass) Troponin I < 0.012 Total Protein 7.1 Albumin 2.4 L Globulin 4.70 H Albumin/Globulin 0.51 Ratio HPI/ROS Admit Date/Time Admit Date/Time Hx of Present Illness This is a 77-year-old female with a past medical history of liver cirrhosis of unclear etiology, hypertension, diabetes mellitus type 2, and depression. The patient is being taken care of by her daughters at home. For the past 2 days, the patient has been more confused and had generalized weakness. The patient also had difficulty with oral intake including her medications. The family has not been able to administer lactulose. The patient was confused and details were obtained from the patient's family who was at the bedside. There was no reported vomiting. However, the patient had coughing when she was given oral feeds/medications. Therefore, the patient had poor oral intake for the past 2 days. In the emergency room, the patient was noticed to have pancytopenia. The patient had a potassium level of 5.2. The patient's urinalysis was negative. The patient underwent a brain CT scan that was negative for any acute findings. The patient's chest x-ray was negative for any acute findings. The patient's ammonia level was 47. The patient was treated with a single dose of oral lactulose along with IV sodium bicarbonate and calcium chloride. ROS Constitutional: poor po Eyes: no complaints ENT: no complaints Respiratory: no complaints Cardiovascular: no complaints Gastrointestinal: no complaints Genitourinary: no complaints Musculoskeletal: no complaints Skin: no complaints Neurologic: confusion Endocrine: no complaints Lymphatic: no complaints Psychological: no complaints Immunologic: no complaints PMH/Family/Social Past Medical History 1. Liver cirrhosis. 2. Hypertension. 3. Diabetes mellitus type 2 4. Depression. 5. Esophageal varices. Medications Current Medications Ondansetron HCl (Zofran Inj) 4 mg ER BRIDGE PRN IV NAUSEA/VOMITING; Start 09/06/18 at 13:00; Stop 09/07/18 at 12:59 Acetaminophen (Tylenol Tab) 650 mg ER BRIDGE PRN PO .MILD PAIN 1-3 OR TEMP; Start 09/06/18 at 13:00; Stop 09/07/18 at 12:59 Coded Allergies: Penicillins (Verified Allergy, Severe, TONGUE TURNED BLACK, SORETHROAT, 09/06/18) Past Surgical History 1. ERCP with biliary stent removal. 2. Esophageal variceal banding. Past Surgical Hx: other Family History Significant Family History: no pertinent family hx Social History The patient lives at home. The patient is being taken care of by her family. Alcohol Use: none Smoking Status: Never smoker Drug Use: none Exam/Review of Systems Vital Signs Vitals Vital Signs Date Temp Pulse Resp B/P (MAP) Pulse Ox O2 O2 Flow FiO2 Time Delivery Rate 09/06/18 62 20 119/46 99 Room Air 13:11 (70) 09/06/18 98.8 08:29 Exam Exam General: Adequately build 77 year-old female lying in bed in no apparent distress. HEENT: Normocephalic, atraumatic. Eyes: Anicteric sclerae, conjunctivae clear. ENT: Nasal septum midline, oral mucosa is dry. Neck supple, no JVD noticed. Respiratory: Bilaterally diminished breath sounds. No use of accessory muscles of respiration. No adventitious breath sounds. Cardiovascular: S1, S2 heard. Regular rate and rhythm. Abdomen: Soft, nontender, and nondistended. Bowel sounds positive in all 4 quadrants. Genitourinary: Deferred. Extremities: No cyanosis, no clubbing, no edema. Peripheral pulses palpable. Neurologic: The patient is awake and alert. Oriented to self. Skin: Normal skin turgor. No skin rashes. Additional Comments Brain CT IMPRESSION: 1. Negative for intracranial hemorrhage or other acute process. 2. Generalized volume loss, atherosclerosis, moderate - advanced chronic small vessel ischemic changes. 3. Chronic opacification of the left maxillary sinus. CXR IMPRESSION: 1. Atherosclerosis. 2. Otherwise normal chest x-ray. ALTHEA WRIGHT NP September 06, 2018 14:39
[2018-09-06] MEDS ORDERED: SOD CHLORIDE 0.9% 1,000 ML IV SCH (15:30)
[2018-09-06] MEDS ORDERED: NACL 0.9% 3 ML SYG IV SCH (15:30)
[2018-09-06] MEDS ORDERED: hydrALAzine 20 MG INJ IV PRN (15:30)
[2018-09-06 16:30] VITALS: Ht 157.5 cm; Wt 72.7 kg
[2018-09-06 16:36] VITALS: PULSE 72
[2018-09-06 16:40] VITALS: BP 134/70; PULSE 73; RESP 20
[2018-09-06 19:50] VITALS: BP_SYST 173; BP_DIAS 1; BP_DIAS 71; PULSE 73; RESP 20
[2018-09-06 20:00] VITALS: PULSE 77
[2018-09-06] MEDS: RIFAXIMIN 550 MG TAB PO SCH (20:32)
[2018-09-06] MEDS: LACTULOSE 30ML CUP PO SCH (20:32)
[2018-09-07] VITALS (7 sets, daily range): BP systolic 118–152; BP diastolic 55–64; PULSE 63–92; RESP 17–20
[2018-09-07] MEDS: LACTULOSE 30ML CUP PO SCH ×2 (08:11→21:16)
[2018-09-07] MEDS: RIFAXIMIN 550 MG TAB PO SCH ×2 (08:11→21:16)
--- NOTE | 2018-09-07 09:35 | PN ---
Date/Time of Note Date/Time of Note DATE: 09/07/18 TIME: 09:31 Assessment/Plan VTE Prophylaxis Risk score (from Ns)>0 risk: 4 [place] [facility] [place] Pharmacological prophylaxis: NA/contraindicated Pharm contraindication: thrombocytopenia Lines/Catheters [facility] Peripheral IV Assessment/Plan Hospital Course SUBJECTIVE: The patient remains awake. Status post evaluation by speech therapy. OBJECTIVE: Physical Exam General: Adequately build 77 year-old female lying in bed in no apparent distress. HEENT: Normocephalic, atraumatic. Eyes: Anicteric sclerae, conjunctivae clear. ENT: Nasal septum midline, oral mucosa is dry. Neck supple, no JVD noticed. Respiratory: Bilaterally diminished breath sounds. No use of accessory muscles of respiration. No adventitious breath sounds. Cardiovascular: S1, S2 heard. Regular rate and rhythm. Grade 2/6 systolic ejection murmur. Abdomen: Soft, nontender, and nondistended. Bowel sounds positive in all 4 quadrants. Genitourinary: Deferred. Extremities: No cyanosis, no clubbing, no edema. Peripheral pulses palpable. Neurologic: The patient is awake and alert. Oriented to self. Skin: Normal skin turgor. No skin rashes. Labs & Vitals per chart ASSESSMENT & PLAN 77-year-old female with comorbidities including cirrhosis, hypertension, diabetes, and depression who was brought in by family members because of increasing confusion and poor oral intake and was admitted to inpatient setting for further treatment and evaluation. 1. Acute encephalopathy. -Most probably toxic metabolic secondary to underlying hepatic cirrhosis. -Continue oral lactulose as tolerated. -If unable to tolerate oral intake, give lactulose as enema. -Continue Xifaxan. 2. Dysphagia. -Status post evaluation by speech therapy. -Continue aspiration precautions. -N.p.o. except for medications. -Aspiration precautions. 3. Hyperkalemia. -Most probably secondary to underlying aldosterone antagonist use. -Hold aldosterone antagonist -Resolved. 4. Liver cirrhosis. -Unknown etiology. -Continue lactulose and rifaximin. 5. Hypertension. -Continue the patient on PRN antihypertensives for high blood pressure readings. 6. Diabetes mellitus type 2. -Hemoglobin A1c 5.3. -Monitor glycemic trends. 7. Fluids, electrolytes, and nutrition. -N.p.o. except for medications. -IVFs. 8. DVT prophylaxis. -Bilateral SCDs 9. Plan. -Continue current management. -Continue aspiration await clinical improvement. -Move the patient to medical surgical floor. The patient was seen in collaboration with Dr. Gonzalez. Result Diagram: 09/07/1872109/07/18 0722 Results 24hrs Laboratory Tests Test 09/06/18 09:40 09/06/18 10:18 09/06/18 10:27 09/06/18 10:28 Urine Color YELLOW Urine Clarity CLEAR Urine pH 6.0 Urine Specific 1.009 [place] Urine Ketones NEGATIVE Urine Nitrite NEGATIVE Urine Bilirubin NEGATIVE Urine Urobilinogen NEGATIVE Urine Leukocyte NEGATIVE Esterase Urine Hemoglobin NEGATIVE Urine Glucose NEGATIVE Urine Total Protein NEGATIVE Bedside Glucose 121 Prothrombin Time 21.3 H Prothrombin Time 1.7 Ratio INR International 1.84 Normalized Ratio Activated 36.1 H Partial Thromboplast Time Hemoglobin A1c 5.3 White Blood Count 4.2 L Red Blood Count 2.63 L Hemoglobin 8.8 L Hematocrit 26.6 L Mean Corpuscular 101.1 H Volume Mean Corpuscular 33.5 H Hemoglobin Mean Corpuscular 33.1 Hemoglobin Concent Red Cell 15.9 H Distribution Width Platelet Count 85 #L Mean Platelet Volume 11.5 H Immature 0.200 Granulocytes % Neutrophils % 40.9 Lymphocytes % 45.6 Monocytes % 9.0 Eosinophils % 3.8 Basophils % 0.5 Nucleated Red Blood 0.0 Cells % Immature 0.010 Granulocytes # Neutrophils # 1.7 Lymphocytes # 1.9 Monocytes # 0.4 Eosinophils # 0.2 Basophils # 0.0 Nucleated Red Blood 0.0 Cells # Sodium Level 139 Potassium Level 5.2 H Chloride Level 112 H Carbon Dioxide Level 21 Anion Gap 6 Blood Urea Nitrogen 11 Creatinine 0.92 Est Glomerular Filtrat Rate mL/min Glucose Level 124 Calcium Level 9.1 Total Bilirubin 2.1 H Direct Bilirubin 0.00 Indirect Bilirubin 2.1 H Aspartate Amino 43 Transf (AST/SGOT) Alanine 33 Aminotransferase (AL T/SGPT) Alkaline Phosphatase 124 H Ammonia 47 H Creatine Kinase 45 Creatine Kinase 1.5 Index Creatinine Kinase MB 0.69 (Mass) Troponin I < 0.012 Total Protein 7.1 Albumin 2.4 L Globulin 4.70 H Albumin/Globulin 0.51 Ratio Test 09/07/18 07:22 White Blood Count 4.6 L Red Blood Count 2.67 L Hemoglobin 9.2 L Hematocrit 26.7 L Mean Corpuscular 100.0 Volume Mean Corpuscular 34.5 H Hemoglobin Mean Corpuscular 34.5 Hemoglobin Concent Red Cell 16.1 H Distribution Width Platelet Count 77 L Mean Platelet Volume 11.4 H Immature 0.200 Granulocytes % Neutrophils % 49.0 Lymphocytes % 37.7 Monocytes % 9.8 Eosinophils % 2.4 Basophils % 0.9 Nucleated Red Blood 0.0 Cells % Immature 0.010 Granulocytes # Neutrophils # 2.3 Lymphocytes # 1.7 Monocytes # 0.5 Eosinophils # 0.1 Basophils # 0.0 Nucleated Red Blood 0.0 Cells # Prothrombin Time 22.7 H Prothrombin Time 1.8 Ratio INR International 1.99 Normalized Ratio Activated 40.6 H Partial Thromboplast Time Sodium Level 139 Potassium Level 4.7 Chloride Level 114 H Carbon Dioxide Level 21 Anion Gap 4 L Blood Urea Nitrogen 14 Creatinine 0.71 Est Glomerular Filtrat Rate mL/min Glucose Level 121 Calcium Level 9.5 Phosphorus Level 4.4 Magnesium Level 1.1 L Total Bilirubin 2.4 H Direct Bilirubin 0.00 Indirect Bilirubin 2.4 H Aspartate Amino 40 Transf (AST/SGOT) Alanine 34 Aminotransferase (AL T/SGPT) Alkaline Phosphatase 89 Ammonia 38 H Total Protein 6.3 Albumin 2.2 L Globulin 4.10 H Albumin/Globulin 0.53 Ratio Triglycerides Level 42 Cholesterol Level 68 L LDL Cholesterol, 36 Calculated HDL Cholesterol 24 L Cholesterol/HDL 2.8 Ratio Exam/Review of Systems Exam Vitals Vital Signs Date Temp Pulse Resp B/P (MAP) Pulse Ox O2 O2 Flow FiO2 Time Delivery Rate 09/07/18 79 08:01 09/07/18 98.3 18 138/64 100 Room Air 07:14 (88) Intake and Output 09/06/18 09/06/18 09/07/18 1515:00 23:00 07:00 IntakeIntake Total 0 ml 100 ml BalanceBalance 0 ml 100 ml Results Results 24hrs Laboratory Tests Test 09/06/18 09:40 09/06/18 10:18 09/06/18 10:27 09/06/18 10:28 Urine Color YELLOW Urine Clarity CLEAR Urine pH 6.0 Urine Specific 1.009 [place] Urine Ketones NEGATIVE Urine Nitrite NEGATIVE Urine Bilirubin NEGATIVE Urine Urobilinogen NEGATIVE Urine Leukocyte NEGATIVE Esterase Urine Hemoglobin NEGATIVE Urine Glucose NEGATIVE Urine Total Protein NEGATIVE Bedside Glucose 121 Prothrombin Time 21.3 H Prothrombin Time 1.7 Ratio INR International 1.84 Normalized Ratio Activated 36.1 H Partial Thromboplast Time Hemoglobin A1c 5.3 White Blood Count 4.2 L Red Blood Count 2.63 L Hemoglobin 8.8 L Hematocrit 26.6 L Mean Corpuscular 101.1 H Volume Mean Corpuscular 33.5 H Hemoglobin Mean Corpuscular 33.1 Hemoglobin Concent Red Cell 15.9 H Distribution Width Platelet Count 85 #L Mean Platelet Volume 11.5 H Immature 0.200 Granulocytes % Neutrophils % 40.9 Lymphocytes % 45.6 Monocytes % 9.0 Eosinophils % 3.8 Basophils % 0.5 Nucleated Red Blood 0.0 Cells % Immature 0.010 Granulocytes # Neutrophils # 1.7 Lymphocytes # 1.9 Monocytes # 0.4 Eosinophils # 0.2 Basophils # 0.0 Nucleated Red Blood 0.0 Cells # Sodium Level 139 Potassium Level 5.2 H Chloride Level 112 H Carbon Dioxide Level 21 Anion Gap 6 Blood Urea Nitrogen 11 Creatinine 0.92 Est Glomerular Filtrat Rate mL/min Glucose Level 124 Calcium Level 9.1 Total Bilirubin 2.1 H Direct Bilirubin 0.00 Indirect Bilirubin 2.1 H Aspartate Amino 43 Transf (AST/SGOT) Alanine 33 Aminotransferase (AL T/SGPT) Alkaline Phosphatase 124 H Ammonia 47 H Creatine Kinase 45 Creatine Kinase 1.5 Index Creatinine Kinase MB 0.69 (Mass) Troponin I < 0.012 Total Protein 7.1 Albumin 2.4 L Globulin 4.70 H Albumin/Globulin 0.51 Ratio Test 09/07/18 07:22 White Blood Count 4.6 L Red Blood Count 2.67 L Hemoglobin 9.2 L Hematocrit 26.7 L Mean Corpuscular 100.0 Volume Mean Corpuscular 34.5 H Hemoglobin Mean Corpuscular 34.5 Hemoglobin Concent Red Cell 16.1 H Distribution Width Platelet Count 77 L Mean Platelet Volume 11.4 H Immature 0.200 Granulocytes % Neutrophils % 49.0 Lymphocytes % 37.7 Monocytes % 9.8 Eosinophils % 2.4 Basophils % 0.9 Nucleated Red Blood 0.0 Cells % Immature 0.010 Granulocytes # Neutrophils # 2.3 Lymphocytes # 1.7 Monocytes # 0.5 Eosinophils # 0.1 Basophils # 0.0 Nucleated Red Blood 0.0 Cells # Prothrombin Time 22.7 H Prothrombin Time 1.8 Ratio INR International 1.99 Normalized Ratio Activated 40.6 H Partial Thromboplast Time Sodium Level 139 Potassium Level 4.7 Chloride Level 114 H Carbon Dioxide Level 21 Anion Gap 4 L Blood Urea Nitrogen 14 Creatinine 0.71 Est Glomerular Filtrat Rate mL/min Glucose Level 121 Calcium Level 9.5 Phosphorus Level 4.4 Magnesium Level 1.1 L Total Bilirubin 2.4 H Direct Bilirubin 0.00 Indirect Bilirubin 2.4 H Aspartate Amino 40 Transf (AST/SGOT) Alanine 34 Aminotransferase (AL T/SGPT) Alkaline Phosphatase 89 Ammonia 38 H Total Protein 6.3 Albumin 2.2 L Globulin 4.10 H Albumin/Globulin 0.53 Ratio Triglycerides Level 42 Cholesterol Level 68 L LDL Cholesterol, 36 Calculated HDL Cholesterol 24 L Cholesterol/HDL 2.8 Ratio Medications Medication Current Medications Ondansetron HCl (Zofran Inj) 4 mg ER BRIDGE PRN IV NAUSEA/VOMITING; Start 09/06/18 at 13:00; Stop 09/07/18 at 12:59 Acetaminophen (Tylenol Tab) 650 mg ER BRIDGE PRN PO .MILD PAIN 1-3 OR TEMP; Start 09/06/18 at 13:00; Stop 09/07/18 at 12:59 IV Flush (NS 3 ml) 3 ml PER PROTOCOL IV ; Start 09/06/18 at 15:30 Ondansetron HCl (Zofran Inj) 4 mg Q6H PRN IV NAUSEA/VOMITING; Start 09/06/18 at 15:30 Lactulose (Enulose) 30 gm Q12 PO Last administered on 09/07/18at 08:11; Admin Dose 30 GM; Start 09/06/18 at 21:00 Rifaximin (Xifaxan) 550 mg BID PO Last administered on 09/07/18at 08:11; Admin Dose 550 MG; Start 09/06/18 at 21:00 Hydralazine HCl (Apresoline) 10 mg Q6H PRN IV SBP>160 Last administered on 09/06/18at 20:34; Admin Dose 10 MG; Start 09/06/18 at 15:30 ALTHEA WRIGHT NP September 07, 2018 09:35
[2018-09-07] MEDS: SOD CHLORIDE 0.9% 1,000 ML IV SCH (10:14)
[2018-09-07] MEDS ORDERED: MAGNESIUM SULFATE 3 GM in DEXTROSE 5% 100 ML IVPB ONE (11:00)
[2018-09-07] MEDS ORDERED: ACETAMINOPHEN 325 MG TAB PO PRN (21:00)
[2018-09-08] MEDS: SOD CHLORIDE 0.9% 1,000 ML IV SCH ×2 (02:10→09:18)
[2018-09-08 03:01] VITALS: BP 141/65; PULSE 65; RESP 18
[2018-09-08 07:35] VITALS: BP 138/63; PULSE 66; RESP 16
[2018-09-08] MEDS: RIFAXIMIN 550 MG TAB PO SCH ×2 (09:07→21:31)
[2018-09-08] MEDS: LACTULOSE 30ML CUP PO SCH ×2 (09:07→21:34)
[2018-09-08 14:00] VITALS: BP 114/57; PULSE 68; RESP 18
--- NOTE | 2018-09-08 14:52 | PN ---
Date/Time of Note Date/Time of Note DATE: 09/08/18 TIME: 14:50 Assessment/Plan VTE Prophylaxis Risk score (from Ns)>0 risk: 4 [place] [facility] [place] Pharmacological prophylaxis: NA/contraindicated Pharm contraindication: thrombocytopenia Lines/Catheters IV Catheter Type ([facility] Saline Lock Assessment/Plan Hospital Course SUBJECTIVE: The patient remains awake. Status post evaluation by speech therapy. OBJECTIVE: Physical Exam General: Adequately build 77 year-old female lying in bed in no apparent distress. HEENT: Normocephalic, atraumatic. Eyes: Anicteric sclerae, conjunctivae clear. ENT: Nasal septum midline, oral mucosa is dry. Neck supple, no JVD noticed. Respiratory: Bilaterally diminished breath sounds. No use of accessory muscles of respiration. No adventitious breath sounds. Cardiovascular: S1, S2 heard. Regular rate and rhythm. Grade 2/6 systolic ejection murmur. Abdomen: Soft, nontender, and nondistended. Bowel sounds positive in all 4 quadrants. Genitourinary: Deferred. Extremities: No cyanosis, no clubbing, no edema. Peripheral pulses palpable. Neurologic: The patient is awake and alert. Oriented to self. Skin: Normal skin turgor. No skin rashes. Labs & Vitals per chart ASSESSMENT & PLAN 77-year-old female with comorbidities including cirrhosis, hypertension, diabetes, and depression who was brought in by family members because of increasing confusion and poor oral intake and was admitted to inpatient setting for further treatment and evaluation. 1. Acute encephalopathy. -Most probably toxic metabolic secondary to underlying hepatic cirrhosis. -Continue oral lactulose as tolerated. -If unable to tolerate oral intake, give lactulose as enema. -Continue Xifaxan. 2. Dysphagia. -Status post evaluation by speech therapy. -Continue aspiration precautions. -Mechanical soft diet. -Aspiration precautions. 3. Hyperkalemia. -Most probably secondary to underlying aldosterone antagonist use. -Hold aldosterone antagonist -Resolved. 4. Liver cirrhosis. -Unknown etiology. -Continue lactulose and rifaximin. 5. Hypertension. -Continue the patient on PRN antihypertensives for high blood pressure readings. 6. Diabetes mellitus type 2. -Hemoglobin A1c 5.3. -Monitor glycemic trends. 7. Fluids, electrolytes, and nutrition. -Mechanical soft diet. -DC IVFs. 8. DVT prophylaxis. -Bilateral SCDs 9. Plan. -Continue current management. -Await clinical improvement. The patient was seen in collaboration with Dr. Gonzalez. Result Diagram: 09/08/18 0707 09/08/18 0707 Results 24hrs Laboratory Tests Test 09/08/18 07:07 White Blood Count 3.1 #L Red Blood Count 2.41 L Hemoglobin 8.0 L Hematocrit 24.3 L Mean Corpuscular Volume 100.8 Mean Corpuscular Hemoglobin 33.2 H Mean Corpuscular Hemoglobin Concent 32.9 Red Cell Distribution Width 16.1 H Platelet Count 63 L Mean Platelet Volume 11.4 H Immature Granulocytes % 0.000 L Neutrophils % 27.5 L Lymphocytes % 54.4 H Monocytes % 11.8 H Eosinophils % 5.6 Basophils % 0.7 Nucleated Red Blood Cells % 0.0 Immature Granulocytes # 0.000 Neutrophils # 0.8 L Lymphocytes # 1.7 Monocytes # 0.4 Eosinophils # 0.2 Basophils # 0.0 Nucleated Red Blood Cells # 0.0 Sodium Level 140 Potassium Level 4.1 Chloride Level 116 H Carbon Dioxide Level 19 L Anion Gap 5 Blood Urea Nitrogen 14 Creatinine 0.69 Est Glomerular Filtrat Rate mL/min Glucose Level 105 Calcium Level 8.2 L Phosphorus Level 3.2 Magnesium Level 1.7 Total Bilirubin 1.9 H Direct Bilirubin 0.00 Indirect Bilirubin 1.9 H Aspartate Amino Transf (AST/SGOT) 38 Alanine Aminotransferase (ALT/SGPT) 29 Alkaline Phosphatase 94 Total Protein 5.8 L Albumin 1.9 L Globulin 3.90 H Albumin/Globulin Ratio 0.48 Exam/Review of Systems Exam Vitals Vital Signs Date Temp Pulse Resp B/P (MAP) Pulse Ox O2 O2 Flow FiO2 Time Delivery Rate 09/08/18 97.4 66 16 138/63 100 Room Air 07:35 (88) Intake and Output 09/07/18 09/07/18 09/08/18 1515:00 23:00 07:00 IntakeIntake Total 106 ml 200 ml 480 ml BalanceBalance 106 ml 200 ml 480 ml Results Results 24hrs Laboratory Tests Test 09/08/18 07:07 White Blood Count 3.1 #L Red Blood Count 2.41 L Hemoglobin 8.0 L Hematocrit 24.3 L Mean Corpuscular Volume 100.8 Mean Corpuscular Hemoglobin 33.2 H Mean Corpuscular Hemoglobin Concent 32.9 Red Cell Distribution Width 16.1 H Platelet Count 63 L Mean Platelet Volume 11.4 H Immature Granulocytes % 0.000 L Neutrophils % 27.5 L Lymphocytes % 54.4 H Monocytes % 11.8 H Eosinophils % 5.6 Basophils % 0.7 Nucleated Red Blood Cells % 0.0 Immature Granulocytes # 0.000 Neutrophils # 0.8 L Lymphocytes # 1.7 Monocytes # 0.4 Eosinophils # 0.2 Basophils # 0.0 Nucleated Red Blood Cells # 0.0 Sodium Level 140 Potassium Level 4.1 Chloride Level 116 H Carbon Dioxide Level 19 L Anion Gap 5 Blood Urea Nitrogen 14 Creatinine 0.69 Est Glomerular Filtrat Rate mL/min Glucose Level 105 Calcium Level 8.2 L Phosphorus Level 3.2 Magnesium Level 1.7 Total Bilirubin 1.9 H Direct Bilirubin 0.00 Indirect Bilirubin 1.9 H Aspartate Amino Transf (AST/SGOT) 38 Alanine Aminotransferase (ALT/SGPT) 29 Alkaline Phosphatase 94 Total Protein 5.8 L Albumin 1.9 L Globulin 3.90 H Albumin/Globulin Ratio 0.48 Medications Medication Current Medications IV Flush (NS 3 ml) 3 ml PER PROTOCOL IV ; Start 09/06/18 at 15:30 Ondansetron HCl (Zofran Inj) 4 mg Q6H PRN IV NAUSEA/VOMITING; Start 09/06/18 at 15:30 Lactulose (Enulose) 30 gm Q12 PO Last administered on 09/08/18 09:07; Admin Dose 30 GM; Start 09/06/18 at 21:00 Rifaximin (Xifaxan) 550 mg BID PO Last administered on 09/08/18 09:07; Admin Dose 550 MG; Start 09/06/18 at 21:00 Hydralazine HCl (Apresoline) 10 mg Q6H PRN IV SBP>160 Last administered on 09/06/18 20:34; Admin Dose 10 MG; Start 09/06/18 at 15:30 Sodium Chloride 1,000 ml @ 60 mls/hr [id number] IV Last administered on 09/08/18 09:18; Admin Dose 60 MLS/HR; Start 09/07/18 at 09:30 Acetaminophen (Tylenol Tab) 650 mg Q6H PRN PO MILD PAIN(1-3)OR ELEVATED TEMP Last administered on 5/28/19at 21:16; Admin Dose 650 MG; Start 09/07/18 at 21:00 ALTHEA WRIGHT NP September 08, 2018 14:52
[2018-09-08] MEDS: CYANOCOBALAMIN 500 MCG TAB PO SCH (17:52)
[2018-09-08 20:00] VITALS: BP 112/56; PULSE 69; RESP 18
[2018-09-08] MEDS: SUCRALFATE 1 GM TAB PO SCH (21:31)
[2018-09-08] MEDS: PROPRANOLOL 10 MG TAB PO SCH (21:31)
[2018-09-09 02:14] VITALS: BP 113/53; PULSE 67; RESP 16
[2018-09-09 07:49] VITALS: BP 106/50; PULSE 69; RESP 16
[2018-09-09] MEDS: RIFAXIMIN 550 MG TAB PO SCH (09:30)
[2018-09-09] MEDS: LACTULOSE 30ML CUP PO SCH (09:30)
[2018-09-09] MEDS: CYANOCOBALAMIN 500 MCG TAB PO SCH (09:31)
[2018-09-09] MEDS: PROPRANOLOL 10 MG TAB PO SCH (09:32)
[2018-09-09] MEDS: SUCRALFATE 1 GM TAB PO SCH (09:38)
[2018-09-09] MEDS ORDERED: MAGNESIUM SULFATE 2 GM/50 ML 50 ML IVPB ONE (13:30)
[2018-09-09 15:38] VITALS: BP 122/58; PULSE 71; RESP 18
--- NOTE | 2018-09-09 16:17 | PDOCDIS ---
Discharge Instructions CONDITION [id number] Patient Condition: [id number] Stable HOME CARE INSTRUCTIONS: [id number] Diet Instructions: [id number] Low Fat /Cholesterol OTHER ORDERS: Other Orders: 1. Resume home medications. 2. Follow a low-cholesterol diet in mechanical soft form. Strict aspiration precautions. 3. Resume activities with assist. 4. Follow-up with your primary care physician in 2 weeks. 5. Please go to the nearest emergency room if there is worsening confusion, difficulty in swallowing, fevers, or any other unusual signs/symptoms. ALTHEA WRIGHT NP September 09, 2018 16:17
--- NOTE | 2018-09-09 17:27 | DS ---
Date/Time of Note Date/Time of Note DATE: 09/09/18 TIME: 17:23 Discharge Summary Admission/Discharge Info Admit Date/Time September 06, 2018 at 12:56 Discharge Date/Time Discharge Diagnosis 1. Acute encephalopathy. 2. Dysphagia. 3. Hyperkalemia. 4. Liver cirrhosis. 5. Hypertension. 6. Diabetes mellitus type 2. Hemoglobin A1c 5.3. 7. Thrombosis of the left cephalic vein in the antecubital fossa. Patient Condition: Stable Procedures Brain CT IMPRESSION: 1. Negative for intracranial hemorrhage or other acute process. 2. Generalized volume loss, atherosclerosis, moderate - advanced chronic small vessel ischemic changes. 3. Chronic opacification of the left maxillary sinus. Left Upper Extremity Venous Doppler IMPRESSION: Thrombosis of the left cephalic vein in the antecubital fossa. No sonographic evidence for deep venous thrombosis. Hx of Present Illness This is a 77-year-old female with a past medical history of liver cirrhosis of unclear etiology, hypertension, diabetes mellitus type 2, and depression. The patient is being taken care of by her daughters at home. For the past 2 days, the patient has been more confused and had generalized weakness. The patient also had difficulty with oral intake including her medications. The family has not been able to administer lactulose. The patient was confused and details were obtained from the patient's family who was at the bedside. There was no reported vomiting. However, the patient had coughing when she was given oral feeds/medications. Therefore, the patient had poor oral intake for the past 2 days. In the emergency room, the patient was noticed to have pancytopenia. The patient had a potassium level of 5.2. The patient's urinalysis was negative. The patient underwent a brain CT scan that was negative for any acute findings. The patient's chest x-ray was negative for any acute findings. The patient's ammonia level was 47. The patient was treated with a single dose of oral lactulose along with IV sodium bicarbonate and calcium chloride. Hospital Course The patient was admitted to inpatient setting. Etiology of the patient's acute encephalopathy was extensively evaluated. The patient's brain CT scan was negative for any acute intracranial findings. The patient had an ammonia level of 47 and the patient has known history of liver cirrhosis. She has not been taking any lactulose for the past couple of days. The patient was started on lactulose as tolerated orally. The patient was continued on Xifaxan. The patient's mental status improved. The patient was adequately hydrated using IV fluids. The patient had evidence of dysphagia and she was evaluated by speech therapy. The patient was kept n.p.o. except for medications at least over the first 24 hours before she was started on a mechanical soft diet with aspiration precautions. Upon discharge, she/family will be instructed to follow a mechanical soft diet with thick liquids and strict aspiration precautions. The patient had hyperkalemia in the emergency room. This could have been most probably secondary to underlying aldosterone antagonist use. The patient's hyperkalemia resolved with holding the aldosterone antagonist. The patient has underlying liver cirrhosis of unknown etiology. The patient was maintained on lactulose and rifaximin. The patient has a history of hypertension. She was maintained on PRN antihypertensives for high blood pressure readings when the patient was n.p.o. Once the patient was able to tolerate oral intake, the patient was resumed on propranolol. The patient has underlying diabetes mellitus type 2. The patient's hemoglobin A1c was noted to be 5.3. The patient's glycemic trends were very good without any evidence of any significant hyperglycemia. Therefore, the patient was not maintained on any sliding scale insulin. Upon discharge, the patient will resume her metformin to 250 mg p.o. twice daily. The patient was noted to be debilitated. The patient was evaluated by physical therapy. Physical therapy recommended home health for home physical therapy and home safety evaluation. Physical therapy recommended no DME. Patient had a some edema and pain at the left antecubital area where the patient had an IV. The patient's peripheral IV was discontinued from the site and the patient underwent a venous Doppler study that was showing thrombosis of the left cephalic vein. The patient was provide with warm compresses. The patient was instructed to elevate the left upper extremity while resting. The patient is not a candidate for any type of anticoagulation because of her underlying liver cirrhosis and underlying thrombocytopenia. The patient had a stable hospital course. The patient is back to her baseline. Therefore, the patient will be discharged home. The patient has 24-hour support at home and is being taken care of by her daughters at home. Discharge Instructions 1. Resume home medications. 2. Follow a low-cholesterol diet in mechanical soft form. Strict aspiration precautions. 3. Resume activities with assist. 4. Follow-up with your primary care physician in 2 weeks. 5. Please go to the nearest emergency room if there is worsening confusion, difficulty in swallowing, fevers, or any other unusual signs/symptoms. The patient's family verbalized understanding of the discharge instructions. The patient was seen in collaboration with Dr. Gonzalez. Home Meds Reported Medications Rifaximin* (Xifaxan*) 550 Mg Tablet, 550 MG PO BID, TAB 09/06/18 Hydralazine Hcl* (Hydralazine Hcl*) 10 Mg Tablet, 10 MG PO BID PRN for ELEVATED BLOOD PRESSURE, #120 TAB SBP ABOVE 160 09/06/18 Sucralfate* (Carafate*) 1 Gm Tab, 1 GM PO BID, TAB 09/06/18 Calcium Carbonate/Vitamin D3 (OYSTER SHELL 500 MG + VIT D TB) 1 Each Tablet, 1 EACH PO DAILY, TAB 09/06/18 Cyanocobalamin* (Vitamin B12*) 500 Mcg Tab, 1000 MCG PO DAILY, TAB 09/06/18 Magnesium Oxide* (Mag-Oxide*) 400 Mg Tablet, 400 MG PO BID, TAB 09/06/18 Spironolactone* (Spironolactone*) 100 Mg Tablet, 100 MG PO DAILY, TAB 09/06/18 Propranolol Hcl* (Propranolol Hcl*) 10 Mg Tablet, 10 MG PO BID, TAB 09/06/18 Lactulose* (Lactulose*) 10 Gm/15 Ml Solution, 30 GM PO Q12, ML 09/06/18 Metformin Hcl* (Metformin Hcl*) 500 Mg Tablet, 250 MG PO WITH BREAKFAST DINNE, #60 TAB 09/06/18 Discontinued Reported Medications Lactulose* (Lactulose*) 10 Gm/15 Ml Solution, 30 GM PO Q12, ML 06/24/18 [omeoprazole] No Conflict Check, 20 MG PO BID PRN for NAUSEA when taking metronidazole 06/24/18 Furosemide* (Furosemide*) 40 Mg Tablet, 40 MG PO DAILY, TAB 06/24/18 Propranolol Hcl* (Propranolol Hcl*) 10 Mg Tablet, 10 MG PO BID, TAB 04/01/18 Discontinued Scripts Hydralazine Hcl* (Hydralazine Hcl*) 10 Mg Tablet, 10 MG PO BID for prn SBP above 160, #60 TAB Prov:YOKO VEGA 07/02/18 Rifaximin* (Xifaxan*) 550 Mg Tablet, 550 MG PO BID for 30 Days, TAB Prov:GABRIELA ESPINO MD 06/02/18 Follow-up Plan The patient to follow-up with her primary care physician in 1 to 2 weeks. Primary Care Provider Not On Staff Doctor Time spent on discharge: > 30 minutes Pending Labs Laboratory Tests Test 09/09/18 04:30 White Blood Count 4.5 10^3/ul (4.8-10.8) Red Blood Count 2.32 10^6/ul (4.20-5.40) Hemoglobin 7.8 g/dl (12.0-16.0) Hematocrit 23.5 % (37.0-47.0) Mean Corpuscular Volume 101.3 fl (82.0-101.0) Mean Corpuscular Hemoglobin 33.6 pg (29.0-33.0) Mean Corpuscular Hemoglobin Concent 33.2 g/dl (32.0-37.0) Red Cell Distribution Width 16.0 % (11.5-14.5) Platelet Count 66 10^3/UL (140-415) Mean Platelet Volume 11.3 fl (7.4-10.4) Immature Granulocytes % 0.200 % (0.001-0.429) Neutrophils % 41.9 % (39.0-77.0) Lymphocytes % 40.6 % (15.0-51.0) Monocytes % 10.3 % (0.0-11.0) Eosinophils % 6.3 % (0.0-7.0) Basophils % 0.7 % (0.0-2.0) Nucleated Red Blood Cells % 0.0 /100WBC (0.0-0.0) Immature Granulocytes # 0.010 10^3/ul (0.0-0.031) Neutrophils # 1.9 10^3/ul (1.6-7.5) Lymphocytes # 1.8 10^3/ul (0.8-2.9) Monocytes # 0.5 10^3/ul (0.3-0.9) Eosinophils # 0.3 10^3/ul (0.0-0.5) Basophils # 0.0 10^3/ul (0.0-0.1) Nucleated Red Blood Cells # 0.0 10^3/ul (0.0-0.0) Sodium Level 138 mmol/L (135-144) Potassium Level 4.2 mmol/L (3.5-5.1) Chloride Level 114 mmol/L (97-110) Carbon Dioxide Level 21 mmol/L (21-31) Anion Gap 3 (5-13) Blood Urea Nitrogen 12 mg/dl (7-20) Creatinine 0.72 mg/dl (0.44-1.00) Est Glomerular Filtrat Rate mL/min mL/min (>60) Glucose Level 121 mg/dl (70-220) Calcium Level 8.1 mg/dl (8.4-10.2) Magnesium Level 1.6 mg/dl (1.7-2.5) Total Bilirubin 1.4 mg/dl (0.2-1.3) Direct Bilirubin 0.00 mg/dl (0.00-0.20) Indirect Bilirubin 1.4 mg/dl (0-1.1) Aspartate Amino Transf (AST/SGOT) 45 IU/L (15-46) Alanine Aminotransferase (ALT/SGPT) 30 IU/L (13-69) Alkaline Phosphatase 92 IU/L (42-121) Total Protein 5.6 g/dl (6.1-8.1) Albumin 1.9 g/dl (3.3-4.9) Globulin 3.70 g/dl (1.3-3.2) Albumin/Globulin Ratio 0.51 ALTHEA WRIGHT NP September 09, 2018 17:27
[2018-09-09 19:55] VITALS: BP 111/53; PULSE 73; RESP 18
== END 2018-09-09 20:15 | disposition home health service (06) | DRG 441 ==
LOC: E/R 08:26 → TEL 12:56 → 2NE 09-07 12:42
PROVIDERS: ADMIT Internal Medicine; ATTEND Internal Medicine
DX: K72.90 Hepatic failure, unspecified without coma (principal); G92 Toxic encephalopathy; D61.818 Other pancytopenia; I82.612 Acute embolism and thrombosis of superficial veins of left upper extremity; E87.5 Hyperkalemia; E11.8 Type 2 diabetes mellitus with unspecified complications; R13.10 Dysphagia, unspecified; K74.60 Unspecified cirrhosis of liver; I10 Essential (primary) hypertension; F32.9 Major depressive disorder, single episode, unspecified; R53.81 Other malaise
CPT/HCPCS: 70450; 71045; 80053; 80061; 81003; 82140; 82550; 82553; 82962; 83036; 83735; 84100; 84484; 85025; 85610; 85730; 87086; 92526; 92610; 93005; 93971; 97162; J0360; J3475; J7030